=== PATIENT | female | born 1985 | race Caucasian/White ===

== ENCOUNTER → 2016-05-23 | Outpatient (CLI) | payer OTHER ==
[2016-05-23 18:17] LABS: ABSOLUTE EOSINOPHILS # (AUTO) 0.1 10^3/uL (0.0-0.6); ABSOLUTE LYMPHOCYTES (AUTO) 1.9 10^3/uL (0.5-4.7); ABSOLUTE MONOCYTES (AUTO) 0.9 10^3/uL (0.1-1.4); ABSOLUTE NEUT (AUTO) 8.9 10^3/uL (1.7-8.2); BASOPHILS % (AUTO) 0.3 % (0-2); EOSINOPHILS % (AUTO) 0.9 % (0-6); HEMATOCRIT 34.8 % (36.0-47.0); HEMOGLOBIN 11.8 g/dL (12.0-15.5); HGB HCT DIFFERENCE 0.6; LYMPHOCYTES % (AUTO) 16.3 % (13-45); MEAN CORPUSCULAR HEMOGLOBIN 30.9 pg (27.0-33.4); MEAN CORPUSCULAR VOLUME 91 fl (80-97); MONOCYTES % (AUTO) 7.7 % (3-13); RED BLOOD COUNT 3.84 10^6/uL (3.72-5.28); RED CELL DISTRIBUTION WIDTH 12.7 % (11.5-14.0); SEGMENTED NEUTROPHILS % (AUTO) 74.8 % (42-78); WHITE BLOOD COUNT 11.9 10^3/uL (4.0-10.5)
== END ==
LOC: OD 17:29
PROVIDERS: ATTEND Advanced Practice Midwife
DX: R53.81 Other malaise (principal)
CPT/HCPCS: 36415; 85025; 87177

== ENCOUNTER 2016-06-09 19:30 | Observation (INO) | payer OTHER ==
--- NOTE | 2016-06-09 20:00 | L&D Flow Sheet ---
LD Flowsheet Datetime Report Generated by CPN: 06/09/2016 20:00 Datetime: 06/09/2016 19:57 Uterine Activity Monitor Interventions for UA: [place] Adjusted (Amirah Vitrano, RN) Datetime: 06/09/2016 19:50 Vital Signs NBP Sys/Gabriela/Mean (mmHg): 113 (QS system process) : 77 (QS system process) : 92 (QS system process) Pulse: 101 (QS system process) Datetime: 06/09/2016 19:49 Frequency (min): Irregular (Amirah Vitrano, RN) Pain Pain Scale: 1 (Amirah Vitrano, RN) Pain Presence: Intermittent (Amirah Vitrano, RN) Pain Type: Cramping (Amirah Vitrano, RN) Pain Location: Abdomen (Amirah Vitrano, RN) Pain Relief Measures: Comfort Measures (Amirah Vitrano, RN) Pain Coping: Talking Through Contractions (Amirah Vitrano, RN) Vaginal Exam Membrane Status: Intact (Amirah Vitrano, RN) Vaginal Bleeding: None (Amirah Vitrano, RN) Maternal Assessment Level of Consciousness: Fully Conscious (Amirah Vitrano, RN) DTR's/Clonus: DTRs 2+; No Clonus (Amirah Vitrano, RN) Headache: Denies (Amirah Vitrano, RN) Breath Sounds, Left: Clear and Equal (Amirah Vitrano, RN) Breath Sounds, Right: Clear and Equal (Amirah Vitrano, RN) Nausea/Vomiting: Denies (Amirah Vitrano, RN) RUQ Epigastric Pain: Denies (Amirah Vitrano, RN) Datetime: 06/09/2016 19:46 Patient Care Patient Position/Activity: Left Tilt; Semi-Fowlers (Amirah Vitrano, RN) I/O Interventions: Clear Liquids Given (Amirah Vitrano, RN) Teaching Instructional Method: Verbal; Patient Instructed; Verbalized Understanding (Amirah Meenakshiano, RN) Plan of Care: Plan of Care Discussed (Amirah Vitrano, RN) Unit Routine: [place] to Room; Call [place]; Bed; Unit Personnel; Monitoring; Safety/Fall Risk Prevention; Bathroom Privileges (Amiarh Hebert RN)
[2016-06-09 20:15] LABS: APPEARANCE,URINE CLEAR; BILIRUBIN,URINE NEGATIVE (NEGATIVE); GLUCOSE, URINE NEGATIVE (NEGATIVE); KETONES,URINE TRACE mg/dL (NEGATIVE); LEUKOCYTE ESTERASE,URINE TRACE (NEGATIVE); NITRITE,URINE NEGATIVE (NEGATIVE); PROTEIN,URINE NEGATIVE (NEGATIVE); URINE SPECIFIC GRAVITY 1.003; UROBILINOGEN,URINE NEGATIVE mg/dL (<2.0)
[2016-06-09 20:41] LABS: URINE BARBITURATES SCREEN NEGATIVE; URINE METHADONE SCREEN NEGATIVE; URINE OPIATES LOW NEGATIVE; URINE PHENCYCLIDINE SCREEN NEGATIVE
--- NOTE | 2016-06-09 22:00 | L&D Flow Sheet ---
LD Flowsheet Datetime Report Generated by CPN: 06/09/2016 22:00 Datetime: 06/09/2016 21:45 Monitor Mode: External (Amirah Vitrano, RN) Frequency (min): 5-6 (Amirah Vitrano, RN) Quality: Mild (Amirah Vitrano, RN) Duration (sec): 60-70 (Amirah Vitrano, RN) Duration Criteria: Less than Two 120 Second Contractions (Amirah Vitrano, RN) Pattern: Normal: <= 5 Contractions in 10 Minutes (Amirah Vitrano, RN) Resting Tone (Palpate): Relaxed (Amirah Vitrano, RN) Monitor Mode: External US (Amirah Vitrano, RN) FHR Baseline Rate : 145 (Amirah Vitrano, RN) Variability: Moderate 6-25 bpm (Amirah Vitrano, RN) Accelerations: 15X15 (Amirah Vitrano, RN) Decelerations: None (Amirah Vitrano, RN) Patient Care Comments: Pt transported to radiology for ultrasound in stable condition via wheelchair with [employer] (Amirah Vitrano, RN) Datetime: 06/09/2016 21:30 Monitor Mode: External (Amirah Vitrano, RN) Frequency (min): 2-7 (Amirah Vitrano, RN) Quality: Mild (Amirah Vitrano, RN) Duration (sec): 50-90 (Amirah Vitrano, RN) Duration Criteria: Less than Two 120 Second Contractions (Amirah Vitrano, RN) Pattern: Normal: <= 5 Contractions in 10 Minutes (Amirah Vitrano, RN) Resting Tone (Palpate): Relaxed (Amirah Vitrano, RN) Monitor Mode: External US (Amirah Vitrano, RN) FHR Baseline Rate : 140 (Amirah Vitrano, RN) Variability: Moderate 6-25 bpm (Amirah Vitrano, RN) Accelerations: Prolonged (Amirah Vitrano, RN) Decelerations: None (Amirah Vitrano, RN) Datetime: 06/09/2016 21:20 NBP Sys/Gabriela/Mean (mmHg): 112 (QS system process) : 76 (QS system process) : 89 (QS system process) Pulse: 90 (QS system process) Respirations: 16 (Amirah Vitrano, RN) LaborFlag: Labor (QS system process) Datetime: 06/09/2016 21:04 Patient Care Comments: Reviewed POC with pt; pt denies needs at this time. Comfortably resting in bed. (Amirah Vitrano, RN) Datetime: 06/09/2016 21:00 Monitor Mode: External; Palpation (Amirah Vitrano, RN) Frequency (min): 2-6 (Amirah Vitrano, RN) Quality: Mild (Amirah Vitrano, RN) Duration (sec): 40-90 (Amirah Vitrano, RN) Duration Criteria: Less than Two 120 Second Contractions (Amirah Vitrano, RN) Pattern: Normal: <= 5 Contractions in 10 Minutes (Amirah Vitrano, RN) Resting Tone (Palpate): Relaxed (Amirah Vitrano, RN) Monitor Mode: External US (Amirah Vitrano, RN) FHR Baseline Rate : 130 (Amirah Vitrano, RN) Variability: Moderate 6-25 bpm (Amirah Vitrano, RN) Accelerations: 15X15 (Amirah Meenakshiano, RN) Decelerations: None (Amirah Meenakshiano, RN) Communication Comments: Call to Radiology; refrigeration technician states pt may transport for U/S in approx 30 min-1 hour d/t pt census. Reviewed with Dr. Chopra, no new orders, continue curren POC. (Amirah Meenakshiano, RN) Datetime: 06/09/2016 20:58 I/O Interventions: Up to BR (Amirah Meenakshiano, RN) Datetime: 06/09/2016 20:50 NBP Sys/Gabriela/Mean (mmHg): 116 (QS system process) : 72 (QS system process) : 88 (QS system process) Pulse: 84 (QS system process) Respirations: 16 (Amirah Anup, RN) LaborFlag: Labor (QS system process) Datetime: 06/09/2016 20:30 Monitor Mode: External; Palpation (Amirah Vitrano, RN) Frequency (min): Irregular (Amirah Vitrano, RN) Quality: Mild (Amirah Vitrano, RN) Duration (sec): 70-90 (Amirah Vitrano, RN) Duration Criteria: Less than Two 120 Second Contractions (Amirah Vitrano, RN) Pattern: Normal: <= 5 Contractions in 10 Minutes (Amirah Vitrano, RN) Resting Tone (Palpate): Relaxed (Amirah Vitrano, RN) Contraction Comments: With irritability (Amirah Vitrano, RN) Monitor Mode: External US (Amirah Vitrano, RN) FHR Baseline Rate : 130 (Amirah Vitrano, RN) Variability: Moderate 6-25 bpm (Amirah Vitrano, RN) Accelerations: 15X15 (Amirah Vitrano, RN) Decelerations: None (Amirah Vitrano, RN) Datetime: 06/09/2016 20:27 Patient Care Comments: Snack provided (Amirah Vitrano, RN) Datetime: 06/09/2016 20:19 Communication Comments: Reviewed urine results with ; no new orders, continue current POC (Amirah Meenakshiano, RN) Datetime: 06/09/2016 20:12 I/O Interventions: Up to BR (Amirah Meenakshiano, RN) Datetime: 06/09/2016 20:05 Communication Comments: Dr. Chopra on unit, reviewed strip. Report given to include EGA 33.4, , pt complaints, nursing assessment, VS, and pt history. Orders received for STAT cervical length. (Amirah Hebert RN)
[2016-06-09] MEDS ORDERED: ZOLPIDEM TARTRATE 5 MG TABLET PO PRN (23:03)
[2016-06-09] MEDS ORDERED: BETAMET ACET/BETAMET NA INJ 6 MG/1 ML IM PRN (23:05)
[2016-06-09] MEDS ORDERED: BETAMET ACET/BETAMET NA INJ 6 MG/1 ML ONE (23:16)
[2016-06-09 23:29] LABS: ABSOLUTE EOSINOPHILS # (AUTO) 0.1 10^3/uL (0.0-0.6); ABSOLUTE LYMPHOCYTES (AUTO) 1.9 10^3/uL (0.5-4.7); ABSOLUTE MONOCYTES (AUTO) 0.8 10^3/uL (0.1-1.4); BASOPHILS % (AUTO) 0.1 % (0-2); EOSINOPHILS % (AUTO) 0.8 % (0-6); HEMATOCRIT 33.6 % (36.0-47.0); HEMOGLOBIN 11.7 g/dL (12.0-15.5); HGB HCT DIFFERENCE 1.5; LYMPHOCYTES % (AUTO) 14.7 % (13-45); MEAN CORPUSCULAR HEMOGLOBIN 31.3 pg (27.0-33.4); MEAN CORPUSCULAR VOLUME 89 fl (80-97); RED BLOOD COUNT 3.76 10^6/uL (3.72-5.28); RED CELL DISTRIBUTION WIDTH 12.8 % (11.5-14.0); SEGMENTED NEUTROPHILS % (AUTO) 78.4 % (42-78); WHITE BLOOD COUNT 12.7 10^3/uL (4.0-10.5)
[2016-06-10] MEDS ORDERED: ZOLPIDEM TARTRATE 5 MG TABLET ONE (01:19)
--- NOTE | 2016-06-10 08:00 | L&D Flow Sheet ---
LD Flowsheet Datetime Report Generated by CPN: 06/10/2016 08:00 Datetime: 06/10/2016 07:29 NBP Sys/Gabriela/Mean (mmHg): 115 (QS system process) : 74 (QS system process) : 87 (QS system process) Pulse: 109 (QS system process) Pain Scale: 0 (DANIAL Buitrago) Pain Presence: None/Denies (DANIAL Buitrago) Pain Type: N/A (DANIAL Buitrago) Pain Assessment Comments: denies pain on discharge (DANIAL Buitrago) Instructional Method: Demo; Verbal; Written; Patient Instructed; Verbalized Understanding (DANIAL Buitrago) Unit Routine: Medications (DANIAL Buitrago) PTL/PROM: PTL Stimulating Activities; Hydration; Expected Outcomes (DANIAL Buitrago) Related: Nutrition; Hydration; Activity and Rest (DANIAL Buitrago) Teaching Comments: Reviewed discharge plans, educated on importance of hydration and nutritional requirements to help prevent contractions. Instructed to remain on pelvic rest and PTL stimulating activities. educated to return tonight to labor and delivery at 2100 for second dose betamethasone. Verbalized understanding of all instructions (Brenda Camp, RNC) LaborFlag: Labor (QS system process) Datetime: 06/10/2016 07:12 Patient Care Comments: EFM off for discharge to home see discharge summary (Brenda Camp, RNC) Communication: RN at Bedside; Report Given to [facility] RN (Elina Woods RN) Datetime: 06/10/2016 07:09 Dilatation (cm): 2.0 (Brenda Camp, RNC) Effacement (%): 50 (Brenda Camp, RNC) Station: -2 (Brenda Camp, RNC) Exam by: Ran Chopra (Brenda Camp, RNC) Cervix, Position: Posterior (Brenda Camp, RNC) Datetime: 06/10/2016 07:04 Provider Reviewed Strip: Yes (Brenda Jacobs, RNC) Communication: RN at Bedside; Provider at Bedside (Brenda Jacobs, RNC) Communication Comments: Dr [place] and Eros Woods Rn at bedside for assessment. Verbalizes absent uterine contractions or cramping. Denies vaginal leaking or bleeding. (Brenda Camp, RNC) Datetime: 06/10/2016 07:00 Monitor Mode: External; Palpation (Brenda Jacobs, RNC) Monitor Mode: External; Palpation (Elina Woods, RN) Frequency (min): irregular (Brenda Camp, RNC) Frequency (min): x1 (Elina Woods, RN) Quality: Mild (Brenda Camp, RNC) Quality: Mild (Elinajeovany Woods, RN) Duration (sec): 30-45 (Brenda Camp, RNC) Duration (sec): 130 (Elina Ledgerchelo, RN) Pattern: Normal: <= 5 Contractions in 10 Minutes (Elina Woods, RN) Resting Tone (Palpate): Relaxed (Brenda Camp, RNC) Resting Tone (Palpate): Relaxed (Elina Woods, RN) Monitor Mode: External US; Auscultation (Brenda Jacobs, RNC) Monitor Mode: External US (Elina Woods RN) FHR Baseline Rate : 110 (Brenda Jacobs RNC) FHR Baseline Rate : 120 (Elina Ledgerwood, RN) FHR Baseline Changes: No Baseline Change (Elina Ledgerwood, RN) Variability: Moderate 6-25 bpm (Brenda Camp, RNC) Variability: Moderate 6-25 bpm (Elina Ledgerwood, RN) Accelerations: 15X15 (Brenda Camp, RNC) Accelerations: None (Elina Ledgerwood, RN) Decelerations: None (Brenda Camp, RNC) Decelerations: None (Elina Ledgerwood, RN) Datetime: 06/10/2016 06:52 NBP Sys/Gabriela/Mean (mmHg): 110 (QS system process) : 68 (QS system process) : 83 (QS system process) Pulse: 88 (QS system process) LaborFlag: Labor (QS system process) Datetime: 06/10/2016 06:35 I/O Interventions: Clear Liquids Given (Elina Ledgerwood, RN) Datetime: 06/10/2016 06:30 Monitor Mode: External; Palpation (Elina Ledgerwood, RN) Frequency (min): x1 (Elina Ledgerwood, RN) Quality: Mild (Elina Ledgerwood, RN) Duration (sec): 70 (Elina Ledgerwood, RN) Pattern: Normal: <= 5 Contractions in 10 Minutes (Elina Ledgerwood, RN) Resting Tone (Palpate): Relaxed (Elina Ledgerwood, RN) Monitor Mode: External US (Elina Ledgerwood, RN) FHR Baseline Rate : 125 (Elina Ledgerwood, RN) FHR Baseline Changes: No Baseline Change (Elina Ledgerwood, RN) Variability: Moderate 6-25 bpm (Elina Ledgerwood, RN) Accelerations: 15X15 (Elina Ledgerwood, RN) Decelerations: None (Elina Ledgerwood, RN) Datetime: 06/10/2016 06:22 Communication: RN at Bedside (Elina Ledgerwood, RN) Communication Comments: pt moved in the bed (Elina Ledgerwood, RN) Datetime: 06/10/2016 06:00 Monitor Mode: External; Palpation (Elina Ledgerwood, RN) Frequency (min): 6.5-7.5 (Elina Ledgerwood, RN) Quality: Mild (Elina Ledgerwood, RN) Duration (sec): 60 (Elina Ledgerwood, RN) Duration Criteria: Less than Two 120 Second Contractions (Elina Ledgerwood, RN) Pattern: Normal: <= 5 Contractions in 10 Minutes (Elina Ledgerwood, RN) Resting Tone (Palpate): Relaxed (Elina Ledgerwood, RN) Monitor Mode: External US (Elina Ledgerwood, RN) FHR Baseline Rate : 125 (Elina Ledgerwood, RN) FHR Baseline Changes: No Baseline Change (Eilna Ledgerwood, RN) Variability: Moderate 6-25 bpm (Elina Ledgerwood, RN) Accelerations: 15X15 (Elina Ledgerwood, RN) Decelerations: None (Elina Ledgerwood, RN) Datetime: 06/10/2016 05:30 Monitor Mode: External; Palpation (Elina Ledgerwood, RN) Frequency (min): x1 (Elina Ledgerwood, RN) Quality: Mild (Elina Ledgerwood, RN) Duration (sec): 80 (Elina Ledgerwood, RN) Duration Criteria: Less than Two 120 Second Contractions (Elina Ledgerwood, RN) Pattern: Normal: <= 5 Contractions in 10 Minutes (Elina Ledgerwood, RN) Resting Tone (Palpate): Relaxed (Elina Ledgerwood, RN) Monitor Mode: External US (Elina Ledgerwood, RN) FHR Baseline Rate : 125 (Elina Ledgerwood, RN) FHR Baseline Changes: No Baseline Change (Elina Ledgerwood, RN) Variability: Moderate 6-25 bpm (Elina Ledgerwood, RN) Accelerations: 15X15 (Elina Ledgerwood, RN) Decelerations: None (Elina Ledgerwood, RN) Datetime: 06/10/2016 05:00 Monitor Mode: External; Palpation (Elina Ledgerwood, RN) Frequency (min): irreg (Elina Ledgerwood, RN) Quality: Mild (Elina Ledgerwood, RN) Duration (sec): 70-80 (Elina Ledgerwood, RN) Duration Criteria: Less than Two 120 Second Contractions (Elina Ledgerwood, RN) Pattern: Normal: <= 5 Contractions in 10 Minutes (Elina Ledgerwood, RN) Resting Tone (Palpate): Relaxed (Elina Ledgerwood, RN) Monitor Mode: External US (Elina Ledgerwood, RN) FHR Baseline Rate : 125 (Elina Ledgerwood, RN) FHR Baseline Changes: No Baseline Change (Elina Ledgerwood, RN) Variability: Moderate 6-25 bpm (Elina Ledgerwood, RN) Accelerations: None (Elina Ledgerwood, RN) Decelerations: None (Elina Ledgerwood, RN) Datetime: 06/10/2016 04:30 Monitor Mode: External; Palpation (Elina Ledgerwood, RN) Frequency (min): x1 (Elina Ledgerwood, RN) Quality: Mild (Elina Ledgerwood, RN) Duration (sec): 80 (Elina Ledgerwood, RN) Duration Criteria: Less than Two 120 Second Contractions (Elina Ledgerwood, RN) Pattern: Normal: <= 5 Contractions in 10 Minutes (Elina Ledgerwood, RN) Resting Tone (Palpate): Relaxed (Elina Ledgerwood, RN) Monitor Mode: External US (Elina Ledgerwood, RN) FHR Baseline Rate : 120 (Elina Ledgerwood, RN) FHR Baseline Changes: No Baseline Change (Elina Ledgerwood, RN) Variability: Moderate 6-25 bpm (Elina Ledgerwood, RN) Accelerations: None (Elina Ledgerwood, RN) Decelerations: None (Elina Ledgerwood, RN) Datetime: 06/10/2016 04:00 Monitor Mode: External; Palpation (Elina Ledgerwood, RN) Frequency (min): 8-14 (Elina Ledgerwood, RN) Quality: Mild (Elina Ledgerwood, RN) Duration (sec): 60-80 (Elina Ledgerwood, RN) Duration Criteria: Less than Two 120 Second Contractions (Elina Ledgerwood, RN) Pattern: Normal: <= 5 Contractions in 10 Minutes (Elina Ledgerwood, RN) Resting Tone (Palpate): Relaxed (Elina Ledgerwood, RN) Monitor Mode: External US (Elina Ledgerwood, RN) FHR Baseline Rate : 125 (Elina Ledgerwood, RN) FHR Baseline Changes: No Baseline Change (Elina Ledgerwood, RN) Variability: Moderate 6-25 bpm (Elina Ledgerwood, RN) Accelerations: 15X15 (Elina Ledgerwood, RN) Decelerations: None (Elina Ledgerwood, RN) Datetime: 06/10/2016 03:30 Monitor Mode: External; Palpation (Elina Ledgerwood, RN) Frequency (min): 2.5-7.5 (Elina Ledgerwood, RN) Quality: Mild (Elina Ledgerwood, RN) Duration (sec): 60-70 (Elina Ledgerwood, RN) Duration Criteria: Less than Two 120 Second Contractions (Elina Ledgerwood, RN) Pattern: Normal: <= 5 Contractions in 10 Minutes (Elina Ledgerwood, RN) Resting Tone (Palpate): Relaxed (Elina Ledgerwood, RN) Monitor Mode: External US (Elina Ledgerwood, RN) FHR Baseline Rate : 125 (Elina Ledgerwood, RN) FHR Baseline Changes: No Baseline Change (Elina Ledgerwood, RN) Variability: Moderate 6-25 bpm (Elina Ledgerwood, RN) Accelerations: 15X15 (Elina Ledgerwood, RN) Decelerations: None (Elina Ledgerwood, RN) Datetime: 06/10/2016 03:00 Monitor Mode: External; Palpation (Elina Ledgerwood, RN) Frequency (min): 7 (Elina Ledgerwood, RN) Quality: Mild (Elina Ledgerwood, RN) Duration (sec): 60-70 (Elina Ledgerwood, RN) Duration Criteria: Less than Two 120 Second Contractions (Elina Ledgerwood, RN) Pattern: Normal: <= 5 Contractions in 10 Minutes (Elina Ledgerwood, RN) Resting Tone (Palpate): Relaxed (Elina Ledgerwood, RN) Monitor Mode: External US (Elina Ledgerwood, RN) FHR Baseline Rate : 130 (Elina Ledgerwood, RN) FHR Baseline Changes: No Baseline Change (Elina Ledgerwood, RN) Variability: Moderate 6-25 bpm (Elina Ledgerwood, RN) Accelerations: 15X15 (Elina Ledgerwood, RN) Decelerations: None (Elina Ledgerwood, RN) Datetime: 06/10/2016 02:30 Monitor Mode: External; Palpation (Elina Ledgerwood, RN) Frequency (min): irreg (Elina Ledgerwood, RN) Quality: Mild (Elina Ledgerwood, RN) Duration (sec): 60-70 (Elina Ledgerwood, RN) Duration Criteria: Less than Two 120 Second Contractions (Elina Ledgerwood, RN) Pattern: Normal: <= 5 Contractions in 10 Minutes (Elina Ledgerwood, RN) Resting Tone (Palpate): Relaxed (Elina Ledgerwood, RN) Monitor Mode: External US (Elina Ledgerwood, RN) FHR Baseline Rate : 135 (Elina Ledgerwood, RN) FHR Baseline Changes: No Baseline Change (Elina Ledgerwood, RN) Variability: Moderate 6-25 bpm (Elina Ledgerwood, RN) Accelerations: 15X15 (Elina Ledgerwood, RN) Decelerations: None (Elina Ledgerwood, RN) Datetime: 06/10/2016 02:00 Monitor Mode: External; Palpation (Elina Ledgerwood, RN) Frequency (min): none (Elina Ledgerwood, RN) Resting Tone (Palpate): Relaxed (Elina Ledgerwood, RN) Contraction Comments: pt states that she feels better and does not feel any contractions. (Elina Ledgerwood, RN) Monitor Mode: External US (Elina Ledgerwood, RN) FHR Baseline Rate : 130 (Elina Ledgerwood, RN) FHR Baseline Changes: No Baseline Change (Elina Ledgerwood, RN) Variability: Moderate 6-25 bpm (Elina Ledgerwood, RN) Accelerations: 15X15 (Elina Ledgerwood, RN) Decelerations: None (Elina Ledgerwood, RN) Datetime: 06/10/2016 01:30 Monitor Mode: External; Palpation (Elina Ledgerwood, RN) Frequency (min): 7-8 (Elina Ledgerwood, RN) Quality: Mild (Elina Ledgerwood, RN) Duration (sec): 60-90 (Elina Ledgerwood, RN) Duration Criteria: Less than Two 120 Second Contractions (Elina Ledgerwood, RN) Pattern: Normal: <= 5 Contractions in 10 Minutes (Elina Ledgerwood, RN) Resting Tone (Palpate): Relaxed (Elina Ledgerwood, RN) Monitor Mode: External US (Elina Ledgerwood, RN) FHR Baseline Rate : 130 (Elina Ledgerwood, RN) FHR Baseline Changes: No Baseline Change (Elina Ledgerwood, RN) Variability: Moderate 6-25 bpm (Elina Ledgerwood, RN) Accelerations: 15X15 (Elina Ledgerwood, RN) Decelerations: None (Elina Ledgerwood, RN) Datetime: 06/10/2016 01:20 Analgesics/Sedatives: Ambien (mg) @ 5 (Elina Ledgerwood, RN) Datetime: 06/10/2016 01:00 Monitor Mode: External; Palpation (Elina Ledgerwood, RN) Frequency (min): x1 (Elian Ledgerwood, RN) Quality: Mild (Elina Ledgerwood, RN) Duration (sec): 130 (Elina Ledgerwood, RN) Pattern: Normal: <= 5 Contractions in 10 Minutes (Elina Ledgerwood, RN) Resting Tone (Palpate): Relaxed (Elina Ledgerwood, RN) Monitor Mode: External US (Elina Ledgerwood, RN) FHR Baseline Rate : 135 (Elina Ledgerwood, RN) FHR Baseline Changes: No Baseline Change (Elina Ledgerwood, RN) Variability: Moderate 6-25 bpm (Elina Ledgerwood, RN) Accelerations: 15X15 (Elina Ledgerwood, RN) Decelerations: None (Elina Ledgerwood, RN) Datetime: 06/10/2016 00:30 Monitor Mode: External; Palpation (Elina Ledgerwood, RN) Frequency (min): x1 (Elina Ledgerwood, RN) Quality: Mild (Elina Ledgerwood, RN) Duration (sec): 160 (Elina Ledgerwood, RN) Pattern: Normal: <= 5 Contractions in 10 Minutes (Elina Ledgerwood, RN) Resting Tone (Palpate): Relaxed (Elina Ledgerwood, RN) Monitor Mode: External US (Elina Ledgerwood, RN) FHR Baseline Rate : 135 (Elina Ledgerwood, RN) FHR Baseline Changes: No Baseline Change (Elina Ledgerwood, RN) Variability: Moderate 6-25 bpm (Elina Ledgerwood, RN) Accelerations: 15X15 (Elina Ledgerwood, RN) Decelerations: None (Elina Ledgerwood, RN) Datetime: 06/10/2016 00:24 NBP Sys/Gabriela/Mean (mmHg): 106 (QS system process) : 62 (QS system process) : 80 (QS system process) Pulse: 78 (QS system process) Respirations: 14 (Elina Ledgerwood, RN) LaborFlag: Labor (QS system process) Datetime: 06/10/2016 00:19 Contraction Comments: monitors on (Elina Ledgerwood, RN) Datetime: 06/09/2016 23:31 Communication: RN at Bedside (Elina Ledgerwood, RN) Communication Comments: report received from B Vitrano RN (Elina Ledgerwood, RN) Datetime: 06/09/2016 23:30 Communication Comments: Report to O. Ledgerwood, RN; care relinquished (Amirah Vitrano, RN) Datetime: 06/09/2016 23:28 Monitor Mode: External; Palpation (Elina Ledgerwood, RN) Frequency (min): x1 (Elina Ledgerwood, RN) Quality: Mild (Elina Ledgerwood, RN) Duration (sec): 90 (Elina Ledgerwood, RN) Pattern: Normal: <= 5 Contractions in 10 Minutes (Elina Ledgerwood, RN) Resting Tone (Palpate): Relaxed (Elina Ledgerwood, RN) Monitor Mode: External US (Elina Ledgerwood, RN) FHR Baseline Rate : 130 (Elina Ledgerwood, RN) FHR Baseline Changes: No Baseline Change (Elina Ledgerwood, RN) Variability: Moderate 6-25 bpm (Elina Ledgerwood, RN) Accelerations: 15X15 (Elina Ledgerwood, RN) Decelerations: None (Elina Ledgerwood, RN) Patient Care Comments: pt off the monitor to take a shower. (Elina Ledgerwood, RN) Datetime: 06/09/2016 23:20 Patient Care Comments: Consents reviewed and signed (Amirah Vitrano, RN) Datetime: 06/09/2016 23:18 Medication Comments: Betamethasone 12 mg IM L gluteal (Amirah Vitrano, RN) Datetime: 06/09/2016 23:15 Patient Care Comments: Labs drawn (Amirah Vitrano, RN) Datetime: 06/09/2016 23:11 Patient Care Comments: 18 G IV in L forearm, site WNL, saline locked (Amirah Vitrano, RN) Datetime: 06/09/2016 23:06 Communication Comments: May do VS q [address] Chopra (Amirah Vitrano, RN) Datetime: 06/09/2016 23:00 Monitor Mode: External (Amirah Vitrano, RN) Frequency (min): 5-6 (Amirah Vitrano, RN) Quality: Mild (Amirah Vitrano, RN) Duration (sec): 50-80 (Amirah Vitrano, RN) Resting Tone (Palpate): Relaxed (Amirah Vitrano, RN) Monitor Mode: External US (Amirah Vitrano, RN) FHR Baseline Rate : 130 (Amirah Vitrano, RN) Variability: Moderate 6-25 bpm (Amirah Vitrano, RN) Accelerations: 15X15 (Amirah Vitrano, RN) Decelerations: None (Amirah Vitrano, RN) Datetime: 06/09/2016 22:45 Communication Comments: Dr. Chopra at bedside reviewing POC and answering pt questions. (Amirah Vitrano, RN) Datetime: 06/09/2016 22:43 Communication Comments: Orders received to admit pt to monitor for PTL. Orders for Betamethasone 12 mg IM x1 now, repeat dose in 24 hours. Saline lock IV only. Regular diet. Ambien 5 mg PO PRN for sleep. (Amirah Vitrano, RN) Datetime: 06/09/2016 22:41 Communication Comments: Dr. Chopra at bedside, reviewed strip. Reviewed ultrasound results. (Amirah Vitrano, RN) Datetime: 06/09/2016 22:40 Dilatation (cm): 2.0 (Amirah Vitrano, RN) Exam by: Dr. Chopra (Amirah Vitrano, RN) Datetime: 06/09/2016 22:35 I/O Interventions: Up to BR (Amirah Vitrano, RN) Datetime: 06/09/2016 22:30 Monitor Mode: External; Palpation (Amirah Vitrano, RN) Frequency (min): 3-6 (Amirah Vitrano, RN) Quality: Mild (Amirah Vitrano, RN) Duration (sec): 40-70 (Amirah Vitrano, RN) Duration Criteria: Less than Two 120 Second Contractions (Amirah Vitrano, RN) Pattern: Normal: <= 5 Contractions in 10 Minutes (Amirah Vitrano, RN) Resting Tone (Palpate): Relaxed (Amirah Vitrano, RN) Monitor Mode: External US (Amirah Vitrano, RN) FHR Baseline Rate : 140 (Amirah Vitrano, RN) Variability: Moderate 6-25 bpm (Amirah Vitrano, RN) Accelerations: 10X10 (Amirah Vitrano, RN) Decelerations: None (Amirah Vitrano, RN) Datetime: 06/09/2016 22:08 NBP Sys/Gabriela/Mean (mmHg): 114 (QS system process) : 67 (QS system process) : 84 (QS system process) Pulse: 93 (QS system process) Respirations: 16 (Amirah Vitrano, RN) LaborFlag: Labor (QS system process) Datetime: 06/09/2016 22:07 Pain Scale: 1 (Amirah Vitrano, RN) Pain Presence: Intermittent (Amirah Vitrano, RN) Pain Type: Cramping (Amirah Vitrano, RN) Pain Location: Abdomen (Amirah Vitrano, RN) Patient Position/Activity: Left Tilt; Semi-Fowlers (Amirah Vitrano, RN) LaborFlag: Labor (QS system process) Datetime: 06/09/2016 22:06 Patient Care Comments: Pt stable, denies needs (Amirah Hebert RN) Patient Care Comments: Pt returned from Radiology in stable condition via wheelchair with [employer] (Amirah Hebert RN)
--- NOTE | 2016-06-10 10:45 | L&D General Admission ---
General Admit Datetime Report Generated by CPN: 06/10/2016 10:45 INFORMATION Patient Age: 30 (06/09/2016 19:30:QS system process) EDC: 07/24/2016 00:00 (06/09/2016 19:34:Amirah Hebert RN) : 2 (06/09/2016 19:34:Amirah Hebert RN) Para: 1 (06/09/2016 19:34:Amirah Hebert RN) Term: 1 (06/09/2016 19:34:Amirah Hebert RN) : 0 (06/09/2016 19:34:Amirah Hebert RN) Spontaneous Abortions: 0 (06/09/2016 19:34:Amirah Hebert RN) Induced Abortions: 0 (06/09/2016 19:34:Amirah Hebert RN) Livin (06/09/2016 19:34:Amirah Hebert RN) Cesareans: 0 (06/09/2016 19:34:Amirah Hebert RN) VBACs: 0 (06/09/2016 19:34:Amirah Hebert RN) Ectopic: 0 (06/09/2016 19:34:Amirah Hebert RN) Multiple Births: 0 (06/09/2016 19:34:Amirah Hebert RN) Baby, Number in Womb: 1 (06/09/2016 19:34:Amirah Hebert RN) CARE Primary Fugitive Detective: [facility] (06/09/2016 19:34:Amirah Hebert RN) Month of 1st Visit: 12/2015 (06/09/2016 19:34:Amirah Hebert RN) Adequate Care: Yes (06/09/2016 19:34:Amirah Hebert RN) Prepregnancy Weight (lb): 129 (06/09/2016 19:34:Amirah Hebert RN) Prepregnancy Weight (kg): 58.6 (06/09/2016 19:34:QS system process) Height (in): 67 (06/09/2016 19:41:QS system process) ALLERGIES Medication Allergy: No (06/09/2016 19:34:Amirah Hebert RN) Medication Allergies: No Known Allergies (06/09/2016) (06/09/2016 19:41:QS system process) Medication Allergies: No Known Allergies (05/24/2013) (06/09/2016 19:30:QS system process) Latex Allergy: No Latex Allergies (06/09/2016 19:34:Amirah Hebert RN) Food Allergies: N/A (06/09/2016 19:34:Amirah Hebert RN) Environmental Allergies: N/A (06/09/2016 19:34:Amirah Hebert RN) COMMUNICATION Primary Language: Niuean (06/09/2016 19:34:Amirah Hebert RN) Medical Tx Preferred Language: Niuean (06/09/2016 19:34:Amirah Hebert RN) Communication Barrier(s): None (06/09/2016 19:34:Amirah Hebert RN) DEMOGRAPHICS Address: [address] [place] [id number] (06/09/2016 19:30:QS system process) Zipcode: [address] (06/09/2016 19:30:QS system process) Home (06/09/2016 19:30:QS system process) SSN: [id number] (06/09/2016 19:30:QS system process) Next of Kin Name: ADOLFO MILLS (06/09/2016 19:30:QS system process) Next of Kin (06/09/2016 19:30:QS system process) Next of Kin Relationship: MO (06/09/2016 19:30:QS system process) Date of : 1985 (06/09/2016 19:30:QS system process) Marital Status: (06/09/2016 19:30:QS system process) Sex: Female (06/09/2016 19:30:QS system process) Race: (06/09/2016 19:30:QS system process) Ethnicity: Non- or (06/09/2016 19:30:QS system process) Mandaen: Worship (06/09/2016 19:30:QS system process) DRUG AND ALCOHOL USE Alcohol: No (06/09/2016 19:34:Amirah Hebert RN) Cigarettes: Never Smoker. [id number] (06/09/2016 19:34:Amirah Hebert RN) Marijuana: No (06/09/2016 19:34:Amirah Hebert RN) Cocaine: No (06/09/2016 19:34:Amirah Hebert RN) Other Illicit Drugs: No (06/09/2016 19:34:Amirah Hebert RN) VACCINE HISTORY Influenza Vaccine: Yes (06/09/2016 19:34:Amirah Hebert RN) Pneumococcal Vaccine: No (06/09/2016 19:34:Amirah Hebert RN) Tetanus Vaccine: Yes (06/09/2016 19:34:Amirah Hebert RN) Tdap Vaccine: Yes (06/09/2016 19:34:Amirah Hebert RN) Hepatitis B Vaccine: Yes (06/09/2016 19:34:Amirah Hebert RN) Rock Splitter: [facility] (06/09/2016 19:34:Amirah Hebert RN) Feeding Preference: Breast (06/09/2016 19:34:Amirah Hebert RN) Benefit of Breast Feed Discussed: Yes (06/09/2016 19:34:Amirah Hebert RN) Circumcision: Yes (06/09/2016 19:34:Amirah Hebert RN) Classes Attended: No (06/09/2016 19:34:Amirah Hebert RN) Tubal Ligation: No (06/09/2016 19:34:Amirah eHbert RN) Tubal Authorization Signed: N/A (06/09/2016 19:34:Amirah Hebert RN) Consent: N/A (06/09/2016 19:34:Amirah Hebert RN) Consent Signed: N/A (06/09/2016 19:34:Amirah Hebert RN) Pain Management Plans: Natural (06/09/2016 19:34:Amirah Hebert RN) Plans for Labor and Delivery: None (06/09/2016 19:34:Amirah Hebert RN) Support Person: Tye (06/09/2016 19:34:Amirah Hebert RN) Support Person Relationship: (06/09/2016 19:34:Amirah Hebert RN) Cultural/Spritual Practice: No (06/09/2016 19:34:Amirah Hebert RN) Spir/Cult Dietary Needs: No (06/09/2016 19:34:Amirah Hebert RN) LIVING SITUATION/DISCHARGE PLAN Living Arrangements: House (06/09/2016 19:34:Amirah Hebert RN) Adequate Access to:: Electric; Heat; Refrigeration; Plumbing/Running water; Phone; Transportation (06/09/2016 19:34:Amirah Hebert RN) WIC Program: No (06/09/2016 19:34:Amirah Hebert RN) Discharge Tool And Die Engineer Person: (06/09/2016 19:34:Amirah Hebert RN) Person to Help after Discharge: (06/09/2016 19:34:Amirah Hebert RN) Currently Using Commun Resources: No (06/09/2016 19:34:Amirah Hebert RN) Outside Agency/House Calls Nurse Practitioner: No (06/09/2016 19:34:Amirah Hebert RN) Car Seat for Discharge: Yes (06/09/2016 19:34:Amirah Hebert RN) Adoption Requested: No (06/09/2016 19:34:Amirah Hebert RN) Pt Contact w/infant Post : N/A (06/09/2016 19:34:Amirah Hebert RN) LABS Blood Type: A Positive (06/09/2016 19:34:Amirah Hebert RN) Antibody Screen: Negative (06/09/2016 19:34:Amirah Hebert RN) Rho(G) this : Not Applicable (06/09/2016 19:34:Amirah Hebert RN) Hemoglobin: 11.7 L (06/09/2016 23:16:QS system process) Hematocrit: 33.6 L (06/09/2016 23:16:QS system process) MCV: 89 (06/09/2016 23:16:QS system process) RPR/VDRL: Nonreactive (06/09/2016 19:34:Amirah Hebert RN) HIV Exposure Test: Negative (06/09/2016 19:34:Amirah Hebert RN) Hepatitis B: Negative (06/09/2016 19:34:Amirah Hebert RN) Rubella: Immune (06/09/2016 19:34:Amirah Hebert RN) OB/PREVIOUS HISTORY Previous Procedures: Ultrasound; NST (06/09/2016 19:34:Amirah Hebert RN) Current Procedures: Ultrasound (06/09/2016 19:34:Amirah Hebert RN) History of Previous : No (06/09/2016 19:34:Amirah Hebert RN) History of Gestational Diabetes: No (06/09/2016 19:34:Amirah Hebert RN) History of PIH: No (06/09/2016 19:34:Amirah Hebert RN) History of Incompetent Cervix: No (06/09/2016 19:34:Amirah Hebert RN) History of Placenta Previa/Abrup: No (06/09/2016 19:34:Amirah Hebert RN) History of Macrosomia: No (06/09/2016 19:34:Amirah Hebert RN) History of IUGR: No (06/09/2016 19:34:Amirah Hebert RN) History of Hemorrhage: No (06/09/2016 19:34:Amirah Hebert RN) History of Loss/Stillborn: No (06/09/2016 19:34:Amirah Hebert RN) History of : No (06/09/2016 19:34:Amirah Hebert RN) History of D (Rh) Sensitization: No (06/09/2016 19:34:Amirah Hebert RN) History Recurrent Loss/Stillborn: No (06/09/2016 19:34:Amirah Hebert RN) History Depression/PP Depression: No (06/09/2016 19:34:Amirah Hebert RN) History of Uterine Anomaly/DIVYA: No (06/09/2016 19:34:Amirah Hebert RN) History of Infertility: No (06/09/2016 19:34:Amirah Hebert RN) History of ART Treatment: No (06/09/2016 19:34:Amirah Hebert RN) History of DIVYA: No (06/09/2016 19:34:Amirah Hebert RN) Comments Obstetrical History: G1: 2014 baby girl, 41.1 weeks, 7 lb 0 oz; PTL at 29 weeks G2: Current; /-2 at 31 weeks (06/09/2016 19:34:Amirah Hebert RN) MEDICAL HISTORY Med Hx Diabetes: No (06/09/2016 19:34:Amirah Hebert RN) Med Hx Hypertension: No (06/09/2016 19:34:Amirah Hebert RN) Med Hx Heart Disease: No (06/09/2016 19:34:Amirah Hebert RN) Med Hx Autoimmune Disorder: No (06/09/2016 19:34:Amirah Hebert RN) Med Hx Kidney Disease/UTI: Yes (06/09/2016 19:34:Amirah Hebert RN) Med Hx Neurologic/Epilepsy: No (06/09/2016 19:34:Amirah Hebert RN) Med Hx Psychiatric Disorders: No (06/09/2016 19:34:Amirah Hebert RN) Med Hx Hepatitis/Liver Disease: No (06/09/2016 19:34:Amirah Hebert RN) Med Hx Varicosities/Phlebitis: No (06/09/2016 19:34:Amirah Hebert RN) Med Hx Thyroid Dysfunction: No (06/09/2016 19:34:Amirah Hebert RN) Med Hx Trauma/Violence: No (06/09/2016 19:34:Amirah Hebert RN) Med Hx Blood Transfusion: No (06/09/2016 19:34:Amirah Hebert RN) Med Hx Pulmonary (Asthma,TB): No (06/09/2016 19:34:Amirah Hebert RN) Med Hx Breast: No (06/09/2016 19:34:Amirah Hebert RN) Med Hx MANAGER [employer] Surgery: No (06/09/2016 19:34:Amirah Hebert RN) Med Hx Hospitalization/Surgery: No (06/09/2016 19:34:Amirah Hebert RN) Med Hx Anesthetic Complications: No (06/09/2016 19:34:Amirah Hebert RN) Med Hx Abnormal Pap Smear: No (06/09/2016 19:34:Amirah Hebert RN) Other Medical Diseases: No (06/09/2016 19:34:Amirah Hebert RN) Med Hx Significant Family Hx: No (06/09/2016 19:34:Amirah Hebert RN) Details of Med/Surg Hx: UTI: Frequent UTIs, Macrobid prophylactically after intercourse (06/09/2016 19:34:Amirah Hebert RN) INFECTIOUS HISTORY Inf Hx Gonorrhea: No (06/09/2016 19:34:Amirah Hebert RN) Inf Hx Chlamydia: No (06/09/2016 19:34:Amirah Hebert RN) Inf Hx Syphilis: No (06/09/2016 19:34:Amirah Hebert RN) Inf Hx HIV/AIDS: No (06/09/2016 19:34:Amirah Hebert RN) Inf Hx Human Papilloma Virus: No (06/09/2016 19:34:Amirah Hebert RN) Inf Hx Pt/Partner Genital Herpes: No (06/09/2016 19:34:Amirah Hebert RN) Inf Hx Tuberculosis/Exposure: No (06/09/2016 19:34:Amirah Hebert RN) Inf Hx Hepatitis B,C: No (06/09/2016 19:34:Amirah Hebert RN) Inf Hx Rash or Viral Illness: No (06/09/2016 19:34:Amirah Hebert RN) GENETIC HISTORY Gen Hx Age >=35 at COLBY: No (06/09/2016 19:34:Amirah Hebert RN) Gen Hx Thalassemia: No (06/09/2016 19:34:Amirah Hebert RN) Gen Hx Congenital Heart Defect: No (06/09/2016 19:34:Amirah Hebert RN) Gen Hx Neural Tube Defect: No (06/09/2016 19:34:Amirah Hebert RN) Gen Hx Down's Syndrome: No (06/09/2016 19:34:Amirah Hebert RN) Gen Hx Virgil-Sachs: No (06/09/2016 19:34:Amirah Hebert RN) Gen Hx Mercy: No (06/09/2016 19:34:Amirah Hebert RN) Gen Hx Familial Dysautonomia: No (06/09/2016 19:34:Amirah Hebert RN) Gen Hx Sickle Cell Disease/Trait: No (06/09/2016 19:34:Amirah Hebert RN) Gen Hx Hemophilia/Blood Disorder: No (06/09/2016 19:34:Amirah Hebert RN) Gen Hx Muscular Dystrophy: No (06/09/2016 19:34:Amirah Hebert RN) Gen Hx Cystic Fibrosis: No (06/09/2016 19:34:Amirah Hebert RN) Gen Hx Huntingtons Chorea: No (06/09/2016 19:34:Amirah Hebert RN) Gen Hx Mental Retardation/Autism: No (06/09/2016 19:34:Amirah Hebert RN) Gen Hx Tested for Fragile X: No (06/09/2016 19:34:Amirah Hebert RN) Gen Hx Other Inher/Chromosomal: No (06/09/2016 19:34:Amirah Hebert RN) Gen Hx Maternal Metabolic DO: No (06/09/2016 19:34:Amirah Hebert RN) Gen Hx Pt Father or FOB Defect: No (06/09/2016 19:34:Amirah Hebert RN) Gen Hx Other Genetic History: No (06/09/2016 19:34:Amirah Hebert RN) Gen Hx Drugs/Meds since LMP: No (06/09/2016 19:34:Amirah Hebert RN)
--- NOTE | 2016-06-10 10:45 | L&D Flow Sheet ---
LD Flowsheet Datetime Report Generated by CPN: 06/10/2016 10:45 Datetime: 06/10/2016 07:29 NBP Sys/Gabriela/Mean (mmHg): 115 (QS system process) : 74 (QS system process) : 87 (QS system process) Pulse: 109 (QS system process) Pain Scale: 0 (DANIAL Buitrago) Pain Presence: None/Denies (DANIAL Buitrago) Pain Type: N/A (DANIAL Buitrago) Pain Assessment Comments: denies pain on discharge (DANIAL Buitrago) Instructional Method: Demo; Verbal; Written; Patient Instructed; Verbalized Understanding (DANIAL Buitrago) Unit Routine: Medications (DANIAL Buitrago) PTL/PROM: PTL Stimulating Activities; Hydration; Expected Outcomes (DANIAL Buitrago) Related: Nutrition; Hydration; Activity and Rest (DANIAL Buitrago) Teaching Comments: Reviewed discharge plans, educated on importance of hydration and nutritional requirements to help prevent contractions. Instructed to remain on pelvic rest and PTL stimulating activities. educated to return tonight to labor and delivery at 2100 for second dose betamethasone. Verbalized understanding of all instructions (Brenda Camp, RNC) LaborFlag: Labor (QS system process) Datetime: 06/10/2016 07:12 Patient Care Comments: EFM off for discharge to home see discharge summary (Brenda Camp, RNC) Communication: RN at Bedside; Report Given to [facility] RN (Elina Woods RN) Datetime: 06/10/2016 07:09 Dilatation (cm): 2.0 (Brenda Camp, RNC) Effacement (%): 50 (Brenda Camp, RNC) Station: -2 (Brenda Camp, RNC) Exam by: Ran Chopra (Brenda Camp, RNC) Cervix, Position: Posterior (Brenda Camp, RNC) Datetime: 06/10/2016 07:04 Provider Reviewed Strip: Yes (Brenda Jacobs, RNC) Communication: RN at Bedside; Provider at Bedside (Brenda Jacobs, RNC) Communication Comments: Dr Madrid and Eros Woods Rn at bedside for assessment. Verbalizes absent uterine contractions or cramping. Denies vaginal leaking or bleeding. (Brenda Camp, RNC) Datetime: 06/10/2016 07:00 Monitor Mode: External; Palpation (Brenda Jacobs, RNC) Monitor Mode: External; Palpation (Elina Woods, RN) Frequency (min): irregular (Brenda Camp, RNC) Frequency (min): x1 (Elina Woods, RN) Quality: Mild (Brenda Camp, RNC) Quality: Mild (Elinajeovany Woods, RN) Duration (sec): 30-45 (Brenda Camp, RNC) Duration (sec): 130 (Elina Ledgerchelo, RN) Pattern: Normal: <= 5 Contractions in 10 Minutes (Elina Woods, RN) Resting Tone (Palpate): Relaxed (Brenda Camp, RNC) Resting Tone (Palpate): Relaxed (Elina Woods, RN) Monitor Mode: External US; Auscultation (Brenda Jacobs, RNC) Monitor Mode: External US (Elina Woods RN) FHR Baseline Rate : 110 (Brenda Jacobs RNC) FHR Baseline Rate : 120 (Elina Ledgerwood, RN) FHR Baseline Changes: No Baseline Change (Elina Ledgerwood, RN) Variability: Moderate 6-25 bpm (Brenda Camp, RNC) Variability: Moderate 6-25 bpm (Elina Ledgerwood, RN) Accelerations: 15X15 (Brenda Camp, RNC) Accelerations: None (Elina Ledgerwood, RN) Decelerations: None (Brenda Camp, RNC) Decelerations: None (Elina Ledgerwood, RN) Datetime: 06/10/2016 06:52 NBP Sys/Gabriela/Mean (mmHg): 110 (QS system process) : 68 (QS system process) : 83 (QS system process) Pulse: 88 (QS system process) LaborFlag: Labor (QS system process) Datetime: 06/10/2016 06:35 I/O Interventions: Clear Liquids Given (Elina Ledgerwood, RN) Datetime: 06/10/2016 06:30 Monitor Mode: External; Palpation (Elina Ledgerwood, RN) Frequency (min): x1 (Elina Ledgerwood, RN) Quality: Mild (Elina Ledgerwood, RN) Duration (sec): 70 (Elina Ledgerwood, RN) Pattern: Normal: <= 5 Contractions in 10 Minutes (Elina Ledgerwood, RN) Resting Tone (Palpate): Relaxed (Elina Ledgerwood, RN) Monitor Mode: External US (Elina Ledgerwood, RN) FHR Baseline Rate : 125 (Elina Ledgerwood, RN) FHR Baseline Changes: No Baseline Change (Elina Ledgerwood, RN) Variability: Moderate 6-25 bpm (Elina Ledgerwood, RN) Accelerations: 15X15 (Elina Ledgerwood, RN) Decelerations: None (Elina Ledgerwood, RN) Datetime: 06/10/2016 06:22 Communication: RN at Bedside (Elina Ledgerwood, RN) Communication Comments: pt moved in the bed (Elina Ledgerwood, RN) Datetime: 06/10/2016 06:00 Monitor Mode: External; Palpation (Elina Ledgerwood, RN) Frequency (min): 6.5-7.5 (Elina Ledgerwood, RN) Quality: Mild (Elina Ledgerwood, RN) Duration (sec): 60 (Elina Ledgerwood, RN) Duration Criteria: Less than Two 120 Second Contractions (Elina Ledgerwood, RN) Pattern: Normal: <= 5 Contractions in 10 Minutes (Elina Ledgerwood, RN) Resting Tone (Palpate): Relaxed (Elina Ledgerwood, RN) Monitor Mode: External US (Elina Ledgerwood, RN) FHR Baseline Rate : 125 (Elina Ledgerwood, RN) FHR Baseline Changes: No Baseline Change (Elina Ledgerwood, RN) Variability: Moderate 6-25 bpm (Elina Ledgerwood, RN) Accelerations: 15X15 (Elina Ledgerwood, RN) Decelerations: None (Elina Ledgerwood, RN) Datetime: 06/10/2016 05:30 Monitor Mode: External; Palpation (Elina Ledgerwood, RN) Frequency (min): x1 (Elina Ledgerwood, RN) Quality: Mild (Elina Ledgerwood, RN) Duration (sec): 80 (Elina Ledgerwood, RN) Duration Criteria: Less than Two 120 Second Contractions (Elina Ledgerwood, RN) Pattern: Normal: <= 5 Contractions in 10 Minutes (Elina Ledgerwood, RN) Resting Tone (Palpate): Relaxed (Elina Ledgerwood, RN) Monitor Mode: External US (Elina Ledgerwood, RN) FHR Baseline Rate : 125 (Elina Ledgerwood, RN) FHR Baseline Changes: No Baseline Change (Elina Ledgerwood, RN) Variability: Moderate 6-25 bpm (Elina Ledgerwood, RN) Accelerations: 15X15 (Elina Ledgerwood, RN) Decelerations: None (Elina Ledgerwood, RN) Datetime: 06/10/2016 05:00 Monitor Mode: External; Palpation (Elina Ledgerwood, RN) Frequency (min): irreg (Elina Ledgerwood, RN) Quality: Mild (Elina Ledgerwood, RN) Duration (sec): 70-80 (Elina Ledgerwood, RN) Duration Criteria: Less than Two 120 Second Contractions (Elina Ledgerwood, RN) Pattern: Normal: <= 5 Contractions in 10 Minutes (Elina Ledgerwood, RN) Resting Tone (Palpate): Relaxed (Elina Ledgerwood, RN) Monitor Mode: External US (Elina Ledgerwood, RN) FHR Baseline Rate : 125 (Elina Ledgerwood, RN) FHR Baseline Changes: No Baseline Change (Elina Ledgerwood, RN) Variability: Moderate 6-25 bpm (Elina Ledgerwood, RN) Accelerations: None (Elina Ledgerwood, RN) Decelerations: None (Elina Ledgerwood, RN) Datetime: 06/10/2016 04:30 Monitor Mode: External; Palpation (Elina Ledgerwood, RN) Frequency (min): x1 (Elina Ledgerwood, RN) Quality: Mild (Elina Ledgerwood, RN) Duration (sec): 80 (Elina Ledgerwood, RN) Duration Criteria: Less than Two 120 Second Contractions (Elina Ledgerwood, RN) Pattern: Normal: <= 5 Contractions in 10 Minutes (Elina Ledgerwood, RN) Resting Tone (Palpate): Relaxed (Elina Ledgerwood, RN) Monitor Mode: External US (Elina Ledgerwood, RN) FHR Baseline Rate : 120 (Elina Ledgerwood, RN) FHR Baseline Changes: No Baseline Change (Elina Ledgerwood, RN) Variability: Moderate 6-25 bpm (Elina Ledgerwood, RN) Accelerations: None (Elina Ledgerwood, RN) Decelerations: None (Elina Ledgerwood, RN) Datetime: 06/10/2016 04:00 Monitor Mode: External; Palpation (Elina Ledgerwood, RN) Frequency (min): 8-14 (Elina Ledgerwood, RN) Quality: Mild (Elina Ledgerwood, RN) Duration (sec): 60-80 (Elina Ledgerwood, RN) Duration Criteria: Less than Two 120 Second Contractions (Elina Ledgerwood, RN) Pattern: Normal: <= 5 Contractions in 10 Minutes (Elina Ledgerwood, RN) Resting Tone (Palpate): Relaxed (Elina Ledgerwood, RN) Monitor Mode: External US (Elina Ledgerwood, RN) FHR Baseline Rate : 125 (Elina Ledgerwood, RN) FHR Baseline Changes: No Baseline Change (Elina Ledgerwood, RN) Variability: Moderate 6-25 bpm (Elina Ledgerwood, RN) Accelerations: 15X15 (Elina Ledgerwood, RN) Decelerations: None (Elina Ledgerwood, RN) Datetime: 06/10/2016 03:30 Monitor Mode: External; Palpation (Elina Ledgerwood, RN) Frequency (min): 2.5-7.5 (Elina Ledgerwood, RN) Quality: Mild (Elina Ledgerwood, RN) Duration (sec): 60-70 (Elina Ledgerwood, RN) Duration Criteria: Less than Two 120 Second Contractions (Elina Ledgerwood, RN) Pattern: Normal: <= 5 Contractions in 10 Minutes (Elina Ledgerwood, RN) Resting Tone (Palpate): Relaxed (Elina Ledgerwood, RN) Monitor Mode: External US (Elina Ledgerwood, RN) FHR Baseline Rate : 125 (Elina Ledgerwood, RN) FHR Baseline Changes: No Baseline Change (Elina Ledgerwood, RN) Variability: Moderate 6-25 bpm (Elina Ledgerwood, RN) Accelerations: 15X15 (Elina Ledgerwood, RN) Decelerations: None (Elina Ledgerwood, RN) Datetime: 06/10/2016 03:00 Monitor Mode: External; Palpation (Elina Ledgerwood, RN) Frequency (min): 7 (Elina Ledgerwood, RN) Quality: Mild (Elina Ledgerwood, RN) Duration (sec): 60-70 (Elina Ledgerwood, RN) Duration Criteria: Less than Two 120 Second Contractions (Elina Ledgerwood, RN) Pattern: Normal: <= 5 Contractions in 10 Minutes (Elina Ledgerwood, RN) Resting Tone (Palpate): Relaxed (Elina Ledgerwood, RN) Monitor Mode: External US (Elina Ledgerwood, RN) FHR Baseline Rate : 130 (Elina Ledgerwood, RN) FHR Baseline Changes: No Baseline Change (Elina Ledgerwood, RN) Variability: Moderate 6-25 bpm (Elina Ledgerwood, RN) Accelerations: 15X15 (Elina Ledgerwood, RN) Decelerations: None (Elina Ledgerwood, RN) Datetime: 06/10/2016 02:30 Monitor Mode: External; Palpation (Elina Ledgerwood, RN) Frequency (min): irreg (Elina Ledgerwood, RN) Quality: Mild (Elina Ledgerwood, RN) Duration (sec): 60-70 (Elina Ledgerwood, RN) Duration Criteria: Less than Two 120 Second Contractions (Elina Ledgerwood, RN) Pattern: Normal: <= 5 Contractions in 10 Minutes (Elina Ledgerwood, RN) Resting Tone (Palpate): Relaxed (Elina Ledgerwood, RN) Monitor Mode: External US (Elina Ledgerwood, RN) FHR Baseline Rate : 135 (Elina Ledgerwood, RN) FHR Baseline Changes: No Baseline Change (Elina Ledgerwood, RN) Variability: Moderate 6-25 bpm (Elina Ledgerwood, RN) Accelerations: 15X15 (Elina Ledgerwood, RN) Decelerations: None (Elina Ledgerwood, RN) Datetime: 06/10/2016 02:00 Monitor Mode: External; Palpation (Elina Ledgerwood, RN) Frequency (min): none (Elina Ledgerwood, RN) Resting Tone (Palpate): Relaxed (Elina Ledgerwood, RN) Contraction Comments: pt states that she feels better and does not feel any contractions. (Elina Ledgerwood, RN) Monitor Mode: External US (Elina Ledgerwood, RN) FHR Baseline Rate : 130 (Elina Ledgerwood, RN) FHR Baseline Changes: No Baseline Change (Elina Ledgerwood, RN) Variability: Moderate 6-25 bpm (Elina Ledgerwood, RN) Accelerations: 15X15 (Elina Ledgerwood, RN) Decelerations: None (Elina Ledgerwood, RN) Datetime: 06/10/2016 01:30 Monitor Mode: External; Palpation (Elina Ledgerwood, RN) Frequency (min): 7-8 (Elina Ledgerwood, RN) Quality: Mild (Elina Ledgerwood, RN) Duration (sec): 60-90 (Elina Ledgerwood, RN) Duration Criteria: Less than Two 120 Second Contractions (Elina Ledgerwood, RN) Pattern: Normal: <= 5 Contractions in 10 Minutes (Elina Ledgerwood, RN) Resting Tone (Palpate): Relaxed (Elina Ledgerwood, RN) Monitor Mode: External US (Elina Ledgerwood, RN) FHR Baseline Rate : 130 (Elina Ledgerwood, RN) FHR Baseline Changes: No Baseline Change (Elina Ledgerwood, RN) Variability: Moderate 6-25 bpm (Elina Ledgerwood, RN) Accelerations: 15X15 (Elina Ledgerwood, RN) Decelerations: None (Elina Ledgerwood, RN) Datetime: 06/10/2016 01:20 Analgesics/Sedatives: Ambien (mg) @ 5 (Elina Ledgerwood, RN) Datetime: 06/10/2016 01:00 Monitor Mode: External; Palpation (Elina Ledgerwood, RN) Frequency (min): x1 (Elina Ledgerwood, RN) Quality: Mild (Elina Ledgerwood, RN) Duration (sec): 130 (Elina Ledgerwood, RN) Pattern: Normal: <= 5 Contractions in 10 Minutes (Elina Ledgerwood, RN) Resting Tone (Palpate): Relaxed (Elina Ledgerwood, RN) Monitor Mode: External US (Elina Ledgerwood, RN) FHR Baseline Rate : 135 (Elina Ledgerwood, RN) FHR Baseline Changes: No Baseline Change (Elina Ledgerwood, RN) Variability: Moderate 6-25 bpm (Elina Ledgerwood, RN) Accelerations: 15X15 (Elina Ledgerwood, RN) Decelerations: None (Elina Ledgerwood, RN) Datetime: 06/10/2016 00:30 Monitor Mode: External; Palpation (Elina Ledgerwood, RN) Frequency (min): x1 (Elina Ledgerwood, RN) Quality: Mild (Elina Ledgerwood, RN) Duration (sec): 160 (Elina Ledgerwood, RN) Pattern: Normal: <= 5 Contractions in 10 Minutes (Elina Ledgerwood, RN) Resting Tone (Palpate): Relaxed (Elina Ledgerwood, RN) Monitor Mode: External US (Elina Ledgerwood, RN) FHR Baseline Rate : 135 (Elina Ledgerwood, RN) FHR Baseline Changes: No Baseline Change (Elina Ledgerwood, RN) Variability: Moderate 6-25 bpm (Elina Ledgerwood, RN) Accelerations: 15X15 (Elina Ledgerwood, RN) Decelerations: None (Elina Ledgerwood, RN) Datetime: 06/10/2016 00:24 NBP Sys/Gabriela/Mean (mmHg): 106 (QS system process) : 62 (QS system process) : 80 (QS system process) Pulse: 78 (QS system process) Respirations: 14 (Elina Ledgerwood, RN) LaborFlag: Labor (QS system process) Datetime: 06/10/2016 00:19 Contraction Comments: monitors on (Elina Ledgerwood, RN) Datetime: 06/09/2016 23:31 Communication: RN at Bedside (Elina Ledgerwood, RN) Communication Comments: report received from B Vitrano RN (Elina Ledgerwood, RN) Datetime: 06/09/2016 23:30 Communication Comments: Report to O. Ledgerwood, RN; care relinquished (Amirah Vitrano, RN) Datetime: 06/09/2016 23:28 Monitor Mode: External; Palpation (Elina Ledgerwood, RN) Frequency (min): x1 (Elina Ledgerwood, RN) Quality: Mild (Elina Ledgerwood, RN) Duration (sec): 90 (Elina Ledgerwood, RN) Pattern: Normal: <= 5 Contractions in 10 Minutes (Elina Ledgerwood, RN) Resting Tone (Palpate): Relaxed (Elina Ledgerwood, RN) Monitor Mode: External US (Elina Ledgerwood, RN) FHR Baseline Rate : 130 (Elina Ledgerwood, RN) FHR Baseline Changes: No Baseline Change (Elina Ledgerwood, RN) Variability: Moderate 6-25 bpm (Elina Ledgerwood, RN) Accelerations: 15X15 (Elina Ledgerwood, RN) Decelerations: None (Elina Ledgerwood, RN) Patient Care Comments: pt off the monitor to take a shower. (Elina Ledgerwood, RN) Datetime: 06/09/2016 23:20 Patient Care Comments: Consents reviewed and signed (Amirah Vitrano, RN) Datetime: 06/09/2016 23:18 Medication Comments: Betamethasone 12 mg IM L gluteal (Amirah Vitrano, RN) Datetime: 06/09/2016 23:15 Patient Care Comments: Labs drawn (Amirah Vitrano, RN) Datetime: 06/09/2016 23:11 Patient Care Comments: 18 G IV in L forearm, site WNL, saline locked (Amirah Vitrano, RN) Datetime: 06/09/2016 23:06 Communication Comments: May do VS q [address] Chopra (Amirah Vitrano, RN) Datetime: 06/09/2016 23:00 Monitor Mode: External (Amirah Vitrano, RN) Frequency (min): 5-6 (Amirah Vitrano, RN) Quality: Mild (Amirah Vitrano, RN) Duration (sec): 50-80 (Amirah Vitrano, RN) Resting Tone (Palpate): Relaxed (Amirah Vitrano, RN) Monitor Mode: External US (Amirah Vitrano, RN) FHR Baseline Rate : 130 (Amirah Vitrano, RN) Variability: Moderate 6-25 bpm (Amirah Vitrano, RN) Accelerations: 15X15 (Amirah Vitrano, RN) Decelerations: None (Amirah Vitrano, RN) Datetime: 06/09/2016 22:45 Communication Comments: Dr. Chopra at bedside reviewing POC and answering pt questions. (Amirah Hebert, RN)
--- NOTE | 2016-06-10 10:45 | L&D Discharge Summary ---
OB Discharge Summary Datetime Report Generated by CPN: 06/10/2016 10:45 DISCHARGE DIAGNOSIS Diagnosis/Symptoms: Labor Treatment/Procedures Other: Betamethasone IM, Cervical length, Gestation: 33.4 Number of Babies in Womb: 1 Parity: 1 DIET/ACTIVITY/RESTRICTIONS Diet: Regular Activity: Normal Activity Activity Restrictions: No Exercising; No Lifting; Minimize Walking; Minimize Stair Climbing; No Sexual Activity; Nothing in Vagina - [place], Tampons, Douche TEACHING/INSTRUCTIONS/REFERRALS Instructions Given To: patient Instructions Understood: Patient Verbalized Understanding Referrals: None Educational Materials- Other: care notes reviewed and signed for labor and kick counts DISCHARGE INFORMATION Discharged AMA: No Discharge Date/Time: 06/10/2016 07:50 Discharged To: Home Discharge Provider Name: Dr Chopra Accompanied By: J Cherie ST Discharge Method: Wheelchair Condition: Stable FOLLOW UP INFORMATION Follow Up With: [facility] Follow Up On: Tomorrow Follow Up Phone Number: [facility] - GENERAL INSTR-CALL PROVIDER IF: Contractions: Contractions or cramps become more frequent than 8 in one hour or 4 in 20 minutes Pressure: Pressure in your vagina or lower abdomen that may feel like the baby is pushing down Period Like Cramps: Period-like cramps or low dull backache that may come and go Cramps/Diarrhea: Abdominal cramps that may be accompanied by diarrhea Gush of Fluid/Blood: Gush of fluid or blood from your vagina (it is normal to have spotting after vaginal exam or intercourse) Vaginal Discharge: Change in the type or amount of vaginal discharge Decreased Movement: Your baby is not moving as much as usual- 4 movements in 1 hour after drinking and resting on side Temperature: Temperature greater than 100.0(F) orally
--- NOTE | 2016-06-10 10:45 | Antepartum Discharge Summary ---
Antepartum DC Datetime Report Generated by CPN: 06/10/2016 10:45 DIET/ACTIVITY/RESTRICTIONS Diet: Regular (06/10/2016 07:54:Brenda Camp, [facility]) Activity: Normal Activity (06/10/2016 07:54:Brenda Camp, [facility]) Activity Restrictions: No Exercising; No Lifting; Minimize Walking; Minimize Stair Climbing; No Sexual Activity; Nothing in Vagina - [place], Tampons, Douche (06/10/2016 07:54:Brenda Camp, [facility]) TEACHING/INSTRUCTIONS/REFERRALS Instructions Given To: patient (06/10/2016 07:54:Brenda Camp, RNC) Instructions Understood: Patient Verbalized Understanding (06/10/2016 07:54:Brenda Camp, RNC) Referrals: None (06/10/2016 07:54:Brenda Camp, RNC) Educational Materials- Other: care notes reviewed and signed for labor and kick counts (06/10/2016 07:54:Brenda Camp, RNC) DISCHARGE INFORMATION Discharged AMA: No (06/10/2016 07:54:Brenda Camp, RNC) Discharge Date/Time: 06/10/2016 07:50 (06/10/2016 07:54:Brenda Camp, RNC) Discharged To: Home (06/10/2016 07:54:Brenda Camp, RNC) Discharge Provider Name: Dr Chopra (06/10/2016 07:54:Brenda Camp, RNC) Accompanied By: Karoline RAJAN (06/10/2016 07:54:Brenda Camp, RNC) Discharge Method: Wheelchair (06/10/2016 07:54:Brenda Camp, RNC) Condition: Stable (06/10/2016 07:54:Brenda Camp, RNC) FOLLOW UP INFORMATION Follow Up With: [facility] (06/10/2016 07:54:DANIAL Buitrago) Follow Up On: Tomorrow (06/10/2016 07:54:DANIAL Buitrago) Follow Up Phone Number: [facility] - (06/10/2016 07:54:DANIAL Buitrago) GENERAL INSTR-CALL PROVIDER IF: Contractions: Contractions or cramps become more frequent than 8 in one hour or 4 in 20 minutes (06/10/2016 07:54:DANIAL Buitrago) Pressure: Pressure in your vagina or lower abdomen that may feel like the baby is pushing down (06/10/2016 07:54:DANIAL Buitrago) Period Like Cramps: Period-like cramps or low dull backache that may come and go (06/10/2016 07:54:DANIAL Buitrago) Cramps/Diarrhea: Abdominal cramps that may be accompanied by diarrhea (06/10/2016 07:54:DANIAL Buitrago) Gush of Fluid/Blood: Gush of fluid or blood from your vagina (it is normal to have spotting after vaginal exam or intercourse) (06/10/2016 07:54:DANIAL Buitrago) Vaginal Discharge: Change in the type or amount of vaginal discharge (06/10/2016 07:54:DANIAL Buitrago) Decreased Movement: Your baby is not moving as much as usual- 4 movements in 1 hour after drinking and resting on side (06/10/2016 07:54:DANIAL Buitrago) Temperature: Temperature greater than 100.0(F) orally (06/10/2016 07:54:DANIAL Buitrago)
--- NOTE | 2016-06-10 10:45 | L&D Admission Assessment ---
LD ADM ASMT Datetime Report Generated by CPN: 06/10/2016 10:45 PATIENT ASSESSMENT Assessment Type: Admission Assessment (06/09/2016 19:49:Amirah Vitrano, RN) WEIGHT Weight (lb): 161 (06/09/2016 19:41:QS system process) Weight (kg): 73.2 (06/09/2016 19:41:QS system process) Total Wt Gain (lb): 32 (06/09/2016 19:41:QS system process) Wt Gain (kg): 14.4 (06/09/2016 19:41:QS system process) PAIN Pain Scale: 0 (06/10/2016 07:29:DANIAL Buitrago) Pain Scale: 1 (06/09/2016 22:07:Amirah Hebert RN) Pain Scale: 1 (06/09/2016 19:49:Amirah Hebert RN) Pain Presence: None/Denies (06/10/2016 07:29:DANIAL Buitrago) Pain Presence: Intermittent (06/09/2016 22:07:Amirah Hebert RN) Pain Presence: Intermittent (06/09/2016 19:49:Amirah Hebert RN) Pain Type: N/A (06/10/2016 07:29:DANIAL Buitrago) Pain Type: Cramping (06/09/2016 22:07:Amirah Hebert RN) Pain Type: Cramping (06/09/2016 19:49:Amirah Hebert RN) Pain Location: Abdomen (06/09/2016 22:07:Amirah Hebert RN) Pain Location: Abdomen (06/09/2016 19:49:Amirah Hebert RN) Pain Related to Contraction: Yes (06/09/2016 19:49:Amirah Hebert RN) Pain Comments: denies pain on discharge (06/10/2016 07:29:DANIAL Buitrago) CONTRACTIONS Frequency (min): irregular (06/10/2016 07:00:Brendanessa Jacobs, RNC) Frequency (min): x1 (06/10/2016 07:00:Elina Ledgerwood, RN) Frequency (min): x1 (06/10/2016 06:30:Elina Ledgerwood, RN) Frequency (min): 6.5-7.5 (06/10/2016 06:00:Elina Ledgerwood, RN) Frequency (min): x1 (06/10/2016 05:30:Elina Ledgerwood, RN) Frequency (min): irreg (06/10/2016 05:00:Elnia Ledgerwood, RN) Frequency (min): x1 (06/10/2016 04:30:Elina Ledgerwood, RN) Frequency (min): 8-14 (06/10/2016 04:00:Elina Ledgerwood, RN) Frequency (min): 2.5-7.5 (06/10/2016 03:30:Elina Ledgerwood, RN) Frequency (min): 7 (06/10/2016 03:00:Elina Ledgerwood, RN) Frequency (min): irreg (06/10/2016 02:30:Elina Ledgerwood, RN) Frequency (min): none (06/10/2016 02:00:Elina Ledgerwood, RN) Frequency (min): 7-8 (06/10/2016 01:30:Elina Ledgerwood, RN) Frequency (min): x1 (06/10/2016 01:00:Elina Ledgerwood, RN) Frequency (min): x1 (06/10/2016 00:30:Elina Ledgerwood, RN) Frequency (min): x1 (06/09/2016 23:28:Elina Ledgerwood, RN) Frequency (min): 5-6 (06/09/2016 23:00:Amirah Vitrano, RN) Frequency (min): 3-6 (06/09/2016 22:30:Amirah Vitrano, RN) Frequency (min): 5-6 (06/09/2016 21:45:Amirah Vitrano, RN) Frequency (min): 2-7 (06/09/2016 21:30:Amirah Vitrano, RN) Frequency (min): 2-6 (06/09/2016 21:00:Amirah Vitrano, RN) Frequency (min): Irregular (06/09/2016 20:30:Amirah Vitrano, RN) Frequency (min): Irregular (06/09/2016 19:49:Amirah Vitrano, RN) Duration (sec): 30-45 (06/10/2016 07:00:Brenda Jacobs RNC) Duration (sec): 130 (06/10/2016 07:00:Elina Ledgerwood, RN) Duration (sec): 70 (06/10/2016 06:30:Elina Ledgerwood, RN) Duration (sec): 60 (06/10/2016 06:00:Elina Ledgerwood, RN) Duration (sec): 80 (06/10/2016 05:30:Elina Ledgerwood, RN) Duration (sec): 70-80 (06/10/2016 05:00:Elina Ledgerwood, RN) Duration (sec): 80 (06/10/2016 04:30:Elina Ledgerwood, RN) Duration (sec): 60-80 (06/10/2016 04:00:Elina Ledgerwood, RN) Duration (sec): 60-70 (06/10/2016 03:30:Elina Ledgerwood, RN) Duration (sec): 60-70 (06/10/2016 03:00:Elina Ledgerwood, RN) Duration (sec): 60-70 (06/10/2016 02:30:Elina Ledgerwood, RN) Duration (sec): 60-90 (06/10/2016 01:30:Elina Ledgerwood, RN) Duration (sec): 130 (06/10/2016 01:00:Elina Ledgerwood, RN) Duration (sec): 160 (06/10/2016 00:30:Elina Ledgerwood, RN) Duration (sec): 90 (06/09/2016 23:28:Elina Ledgerwood, RN) Duration (sec): 50-80 (06/09/2016 23:00:Amirah Vitrano, RN) Duration (sec): 40-70 (06/09/2016 22:30:Amirah Vitrano, RN) Duration (sec): 60-70 (06/09/2016 21:45:Amirah Vitrano, RN) Duration (sec): 50-90 (06/09/2016 21:30:Amirah Vitrano, RN) Duration (sec): 40-90 (06/09/2016 21:00:Amirah Vitrano, RN) Duration (sec): 70-90 (06/09/2016 20:30:Amirah Vitrano, RN) Quality: Mild (06/10/2016 07:00:DANIAL Buitrago) Quality: Mild (06/10/2016 07:00:Elina Woods RN) Quality: Mild (06/10/2016 06:30:Elina Woods, RN) Quality: Mild (06/10/2016 06:00:Elina Woods, RN) Quality: Mild (06/10/2016 05:30:Elina Woods, RN) Quality: Mild (06/10/2016 05:00:Elina Woods, RN) Quality: Mild (06/10/2016 04:30:Elina Woods, RN) Quality: Mild (06/10/2016 04:00:Elina Woods, RN) Quality: Mild (06/10/2016 03:30:Elina Peggy, RN) Quality: Mild (06/10/2016 03:00:Elina Peggy, RN) Quality: Mild (06/10/2016 02:30:Elina Woods, RN) Quality: Mild (06/10/2016 01:30:Elina Peggy, RN) Quality: Mild (06/10/2016 01:00:Elina Peggy, RN) Quality: Mild (06/10/2016 00:30:Elina Peggy, RN) Quality: Mild (06/09/2016 23:28:Elina Peggy, RN) Quality: Mild (06/09/2016 23:00:Amirah Meenakshiano, RN) Quality: Mild (06/09/2016 22:30:Amirah Meenakshiano, RN) Quality: Mild (06/09/2016 21:45:Amirah Vitrano, RN) Quality: Mild (06/09/2016 21:30:Amirah Meenakshiano, RN) Quality: Mild (06/09/2016 21:00:Amirah Meenakshiano, RN) Quality: Mild (06/09/2016 20:30:Amirah Vitrano, RN) Pattern: Normal: <= 5 Contractions in 10 Minutes (06/10/2016 07:00:Elina Woods RN) Pattern: Normal: <= 5 Contractions in 10 Minutes (06/10/2016 06:30:Elina Woods RN) Pattern: Normal: <= 5 Contractions in 10 Minutes (06/10/2016 06:00:Elina Peggy, RN) Pattern: Normal: <= 5 Contractions in 10 Minutes (06/10/2016 05:30:Elina Woods RN) Pattern: Normal: <= 5 Contractions in 10 Minutes (06/10/2016 05:00:Elina Peggy, RN) Pattern: Normal: <= 5 Contractions in 10 Minutes (06/10/2016 04:30:Elina Peggy RN) Pattern: Normal: <= 5 Contractions in 10 Minutes (06/10/2016 04:00:Elina Peggy, RN) Pattern: Normal: <= 5 Contractions in 10 Minutes (06/10/2016 03:30:Elina Woods RN) Pattern: Normal: <= 5 Contractions in 10 Minutes (06/10/2016 03:00:Elina Peggy RN) Pattern: Normal: <= 5 Contractions in 10 Minutes (06/10/2016 02:30:Elina Peggy RN) Pattern: Normal: <= 5 Contractions in 10 Minutes (06/10/2016 01:30:Elina Peggy, RN) Pattern: Normal: <= 5 Contractions in 10 Minutes (06/10/2016 01:00:Elina Peggy, RN) Pattern: Normal: <= 5 Contractions in 10 Minutes (06/10/2016 00:30:Elinajeovany Woods, RN) Pattern: Normal: <= 5 Contractions in 10 Minutes (06/09/2016 23:28:Elina Peggy, RN) Pattern: Normal: <= 5 Contractions in 10 Minutes (06/09/2016 22:30:Amirah Meenakshiano, RN) Pattern: Normal: <= 5 Contractions in 10 Minutes (06/09/2016 21:45:Amirah Meenakshiano, RN) Pattern: Normal: <= 5 Contractions in 10 Minutes (06/09/2016 21:30:Amirah Meenakshiano, RN) Pattern: Normal: <= 5 Contractions in 10 Minutes (06/09/2016 21:00:Amirah Meenakshiano, RN) Pattern: Normal: <= 5 Contractions in 10 Minutes (06/09/2016 20:30:Amirah Vitrano, RN) Resting Tone [place]: Relaxed (06/10/2016 07:00:DANIAL Buitrago) Resting Tone [place]: Relaxed (06/10/2016 07:00:Elina Woods, RN) Resting Tone [place]: Relaxed (06/10/2016 06:30:Elina Peggy, RN) Resting Tone [place]: Relaxed (06/10/2016 06:00:Elina Peggy, RN) Resting Tone [place]: Relaxed (06/10/2016 05:30:Elina Peggy, RN) Resting Tone [place]: Relaxed (06/10/2016 05:00:Elina Peggy, RN) Resting Tone [place]: Relaxed (06/10/2016 04:30:Elina Peggy, RN) Resting Tone [place]: Relaxed (06/10/2016 04:00:Elina Peggy, RN) Resting Tone [place]: Relaxed (06/10/2016 03:30:Elina Peggy, RN) Resting Tone [place]: Relaxed (06/10/2016 03:00:Elina Peggy, RN) Resting Tone [place]: Relaxed (06/10/2016 02:30:Elina Peggy, RN) Resting Tone [place]: Relaxed (06/10/2016 02:00:Elina Peggy, RN) Resting Tone [place]: Relaxed (06/10/2016 01:30:Elina Peggy, RN) Resting Tone [place]: Relaxed (06/10/2016 01:00:Elina Woods RN) Resting Tone [place]: Relaxed (06/10/2016 00:30:Elina Woods RN) Resting Tone [place]: Relaxed (06/09/2016 23:28:Elina Woods RN) Resting Tone [place]: Relaxed (06/09/2016 23:00:Amirah Hebert RN) Resting Tone [place]: Relaxed (06/09/2016 22:30:Amirah Hebert RN) Resting Tone [place]: Relaxed (06/09/2016 21:45:Amirah Hebert RN) Resting Tone [place]: Relaxed (06/09/2016 21:30:Amirah Hebert RN) Resting Tone [place]: Relaxed (06/09/2016 21:00:Amirah Hebert RN) Resting Tone [place]: Relaxed (06/09/2016 20:30:Amirah Hebert RN) Contraction Comments: pt states that she feels better and does not feel any contractions. (06/10/2016 02:00:Elina Woods RN) Contraction Comments: monitors on (06/10/2016 00:19:Elina Woods RN) Contraction Comments: With irritability (06/09/2016 20:30:Amirah Hebert RN) VAGINAL EXAM Dilatation (cm): 2.0 (06/10/2016 07:09:DANIAL Buitrago) Dilatation (cm): 2.0 (06/09/2016 22:40:Amirah Hebert RN) Effacement (%): 50 (06/10/2016 07:09:DANIAL Buitrago) Station: -2 (06/10/2016 07:09:Brendanessa Jacobs, [facility]) Membranes Status: Intact (06/09/2016 19:49:Amirah Vitrano, RN) NEURO Level of Consciousness: Fully Conscious (06/09/2016 19:49:Amirah Vitrano, RN) DTR's/Clonus: DTRs 2+; No Clonus (06/09/2016 19:49:Amirah Vitrano, RN) Headache: Denies (06/09/2016 19:49:Amirah Vitrano, RN) Dizziness: No (06/09/2016 19:49:Amirah Vitrano, RN) Blurred Vision: No (06/09/2016 19:49:Amirah Vitrano, RN) Extremity Numbness/Tingling : None (06/09/2016 19:49:Amirah Vitrano, RN) Extremity Movement: Full Range of Motion (06/09/2016 19:49:Amirah Vitrano, RN) CARDIOVASCULAR Heart Rhythm: Regular (06/09/2016 19:49:Amirah Vitrano, RN) Nailbeds: [place] (06/09/2016 19:49:Amirah Hebert RN) Capillary Refill: Less than 3 Seconds (06/09/2016 19:49:Amirah Hebert RN) Lower Extremities Edema: None (06/09/2016 19:49:Amirah Hebert RN) Lower Extremities Edema Degree: None (06/09/2016 19:49:Amirah Hebert RN) Upper Extremities Edema: None (06/09/2016 19:49:Amirah Hebert RN) Upper Extremities Edema Degree: None (06/09/2016 19:49:Amirah Hebert RN) Facial Edema: None (06/09/2016 19:49:Amirah Hebert RN) Jose's Sign Left Leg: Negative (06/09/2016 19:49:Amirah Hebert RN) Jose's Sign Right Leg: Negative (06/09/2016 19:49:Amirah Hebert RN) DVT RISK ASSESSMENT DVT Risk Age: Age less than 41 years (06/09/2016 19:49:Amirah Hebert RN) DVT Risk BMI: BMI<31 (06/09/2016 19:49:Amirah Hebert RN) DVT Risk Surgery: None Applicable (06/09/2016 19:49:Amirah Hebert RN) DVT Risk Other: Women Only- or (<1 month) (06/09/2016 19:49:Amirah Hebert RN) DVT Risk Total: 1 (06/09/2016 19:49:QS system process) DVT Risk Text: Low Risk (<10%) No specific measures, early ambulation (06/09/2016 19:49:QS system process) RESPIRATORY Respiratory Effort: Unlabored; Regular Rhythm; Equal Expansion (06/09/2016 19:49:Amirah LIZETH Hebert) Breath Sounds, Left: Clear and Equal (06/09/2016 19:49:Amirah Anup, RN) Breath Sounds, Right: Clear and Equal (06/09/2016 19:49:Amirah Anup RN) Cough Productivity: None (06/09/2016 19:49:Amirahfaheem Hebert RN) GASTROINTESTINAL Nausea/Vomiting: Denies (06/09/2016 19:49:Amirah Hebert RN) Bowel Sounds: Normoactive (06/09/2016 19:49:Amirah Hebert RN) RUQ Epigastric Pain: Denies (06/09/2016 19:49:Amirah Hebert RN) Bowel Patterns: Soft, Formed Stool (06/09/2016 19:49:Amirah Hebert RN) Hemorrhoids: None (06/09/2016 19:49:Amirah Hebert RN) Diet Type: Regular diet (06/09/2016 19:49:Amirah Vitrano, RN) Last Meal: 06/09/2016 18:45 (06/09/2016 19:49:Amirah Vitrano, RN) GENITOURINARY Bladder: Nondistended (06/09/2016 19:49:Amirah Vitrano, RN) Frequency of Urination: No (06/09/2016 19:49:Amirah Anup, RN) Urination Burning: No (06/09/2016 19:49:Amirah Vitrano, RN) CVA Tenderness: No (06/09/2016 19:49:Amirah Vitrano, RN) Vaginal Bleeding: None (06/09/2016 19:49:Amirah Vitrano, RN) Vaginal Discharge Amount: Small (06/09/2016 19:49:Amirah Vitrano, RN) Vaginal Discharge Color: White (06/09/2016 19:49:Amirah Vitrano, RN) Vaginal Discharge Odor: Non-Odorous (06/09/2016 19:49:Amirah Vitrano, RN) Vaginal Discharge Character: Thick (06/09/2016 19:49:Amirah Vitrano, RN) INTEGUMENTARY Skin Color: Normal for Race (06/09/2016 19:49:Amirah Hebert RN) Skin Temperature: Warm (06/09/2016 19:49:Amirah Hebert RN) Skin Moisture: Dry (06/09/2016 19:49:Amirah Hebert RN) Surgical Scars: N/A (06/09/2016 19:49:Amirah Hebert RN) Body Piercings/Tattoos: N/A (06/09/2016 19:49:Amirah Hebert RN) KODAK SKIN ASSESSMENT Kodak Scale Sensory Perception: No Impairment- Responds to verbal commands. Has no sensory deficit which would limit ability to feel or voice pain or discomfort (06/09/2016 19:49:Amirah Hebert RN) Kodak Scale Moisture: Rarely Moist- Skin is usually dry. Linen only requires changing at routine intervals (06/09/2016 19:49:Amirah Hebert RN) Kodak Scale Activity: Walks Frequently- Walks outside the room at least twice a day and inside room at least every 2 hours during the day. (06/09/2016 19:49:Amirah Hebert RN) Kodak Scale Mobility: No Limitations- Makes major and frequent changes in position without assistance (06/09/2016 19:49:Amirah Hebert RN) Kodak Scale Nutrition: Excellent- Eats most of every meal. Never refuses a meal. Usually eats a total of 4 or more servings of meat and dairy products. Occasionally eats between meals. Does not require supplementation (06/09/2016 19:49:Amirah Hebert RN) Kodak Scale Friction and Shear: No Apparent Problem- Moves in bed and in chair independently and has sufficient muscle strength to lift up completely during move. Maintains good position in bed or chair at all times (06/09/2016 19:49:Amirah Hebert RN) Kodak Scale Total: 23 (06/09/2016 19:49:QS system process) Kodak Scale Risk: No Risk of Pressure Ulcer Noted at this Time (06/09/2016 19:49:QS system process) SUPPORT Family Support: Family supportive (06/09/2016 19:49:Amirah Hebert RN) Emotional State: Calm/Relaxed (06/09/2016 19:49:Amirah Hebert RN) SAFETY Call [place] Within Reach: Yes (06/09/2016 19:49:Amirah Hebert RN) Side Rails Up: Yes (06/09/2016 19:49:Amirah Hebert RN) Bed Wheels Locked: Yes (06/09/2016 19:49:Amirah Hebert RN) Arm Bands Present: Yes (06/09/2016 19:49:Amirah Hebert RN) Isolation: [place] (06/09/2016 19:49:Amirah Hebert RN) FALL SCREEN Fall Risk History of Falling: (0) No (06/09/2016 19:49:Amirah Hebert RN) Fall Risk Secondary Diagnosis: (0) No (06/09/2016 19:49:Amirah Hebert RN) Fall Risk Ambulatory Aid: (0) None/Bedrest/Wheelchair/Nurse Assist (06/09/2016 19:49:Amirah Hebert RN) Fall Risk IV Therapy: (0) No (06/09/2016 19:49:Amirah Hebert RN) Fall Risk Gait: (0) Normal/Bedrest/Immobile (06/09/2016 19:49:Amirah Hebert RN) Fall Risk Mental Status: (0) Oriented to Own Ability (06/09/2016 19:49:Amirah Hebert RN) Fall Risk Score: 0 (06/09/2016 19:49:QS system process) Fall Risk Score Definition: No Risk: No action required (06/09/2016 19:49:QS system process) RECENT TRAVEL/INFECTIOUS DISEASE Recent Exp Communicable Disease: No (06/09/2016 19:49:Amirah Hebert RN) Cough or Fever: No (06/09/2016 19:49:Amirah Hebert RN) Foreign Travel Past 10 Days: No (06/09/2016 19:49:Amirah Hebert RN) Open Wounds or Sores: No (06/09/2016 19:49:Amirah Hebert RN) Prior Antibiotic Resistance Tx: No (06/09/2016 19:49:Amirah Hebert RN) Cultures Obtained: Not Applicable (06/09/2016 19:49:Amirah Hebert RN) Isolation Initiated: No (06/09/2016 19:49:Amirah Hebert RN) Pt/Family Education: Not Applicable (06/09/2016 19:49:Amirah Hebert RN) BABY A FHR Baseline Rate (bpm) Baby A: 110 (06/10/2016 07:00:DANIAL Buitrago) FHR Baseline Rate (bpm) Baby A: 120 (06/10/2016 07:00:Elina Woods RN) FHR Baseline Rate (bpm) Baby A: 125 (06/10/2016 06:30:Elina Woods RN) FHR Baseline Rate (bpm) Baby A: 125 (06/10/2016 06:00:Elina Woods RN) FHR Baseline Rate (bpm) Baby A: 125 (06/10/2016 05:30:Elina Woods RN) FHR Baseline Rate (bpm) Baby A: 125 (06/10/2016 05:00:Elina Woods RN) FHR Baseline Rate (bpm) Baby A: 120 (06/10/2016 04:30:Elina Woods RN) FHR Baseline Rate (bpm) Baby A: 125 (06/10/2016 04:00:Elina Woods RN) FHR Baseline Rate (bpm) Baby A: 125 (06/10/2016 03:30:Elina Woods RN) FHR Baseline Rate (bpm) Baby A: 130 (06/10/2016 03:00:Elina Woods RN) FHR Baseline Rate (bpm) Baby A: 135 (06/10/2016 02:30:Elina Woods RN) FHR Baseline Rate (bpm) Baby A: 130 (06/10/2016 02:00:Elina Woods RN) FHR Baseline Rate (bpm) Baby A: 130 (06/10/2016 01:30:Elina Woods RN) FHR Baseline Rate (bpm) Baby A: 135 (06/10/2016 01:00:Elina Woods RN) FHR Baseline Rate (bpm) Baby A: 135 (06/10/2016 00:30:Elina Woods RN) FHR Baseline Rate (bpm) Baby A: 130 (06/09/2016 23:28:Elina Woods RN) FHR Baseline Rate (bpm) Baby A: 130 (06/09/2016 23:00:Amirah Hebert RN) FHR Baseline Rate (bpm) Baby A: 140 (06/09/2016 22:30:Amirah Hebert RN) FHR Baseline Rate (bpm) Baby A: 145 (06/09/2016 21:45:Amirah Hebert RN) FHR Baseline Rate (bpm) Baby A: 140 (06/09/2016 21:30:Amirah Hebert RN) FHR Baseline Rate (bpm) Baby A: 130 (06/09/2016 21:00:Amirah Hebert RN) FHR Baseline Rate (bpm) Baby A: 130 (06/09/2016 20:30:Amirah Vitrano, RN) Variability Baby A: Moderate 6-25 bpm (06/10/2016 07:00:DANIAL Buitrago) Variability Baby A: Moderate 6-25 bpm (06/10/2016 07:00:Elina Woods RN) Variability Baby A: Moderate 6-25 bpm (06/10/2016 06:30:Elina Woods RN) Variability Baby A: Moderate 6-25 bpm (06/10/2016 06:00:Elina Woods RN) Variability Baby A: Moderate 6-25 bpm (06/10/2016 05:30:Elinajeovany Woods, RN) Variability Baby A: Moderate 6-25 bpm (06/10/2016 05:00:Elina Woods RN) Variability Baby A: Moderate 6-25 bpm (06/10/2016 04:30:Elina Woods RN) Variability Baby A: Moderate 6-25 bpm (06/10/2016 04:00:Elina Woods RN) Variability Baby A: Moderate 6-25 bpm (06/10/2016 03:30:Elina Woods RN) Variability Baby A: Moderate 6-25 bpm (06/10/2016 03:00:Elina Woods RN) Variability Baby A: Moderate 6-25 bpm (06/10/2016 02:30:Elina Woods RN) Variability Baby A: Moderate 6-25 bpm (06/10/2016 02:00:Elina Woods RN) Variability Baby A: Moderate 6-25 bpm (06/10/2016 01:30:Elina Woods RN) Variability Baby A: Moderate 6-25 bpm (06/10/2016 01:00:Elina Woods RN) Variability Baby A: Moderate 6-25 bpm (06/10/2016 00:30:Elinajeovany Woods RN) Variability Baby A: Moderate 6-25 bpm (06/09/2016 23:28:Elina Woods RN) Variability Baby A: Moderate 6-25 bpm (06/09/2016 23:00:Amirah Hebert RN) Variability Baby A: Moderate 6-25 bpm (06/09/2016 22:30:Amirah Hebert RN) Variability Baby A: Moderate 6-25 bpm (06/09/2016 21:45:Amirah Hebert RN) Variability Baby A: Moderate 6-25 bpm (06/09/2016 21:30:Amirahlilliam Hebert RN) Variability Baby A: Moderate 6-25 bpm (06/09/2016 21:00:Amirahlilliam Hebert RN) Variability Baby A: Moderate 6-25 bpm (06/09/2016 20:30:Amirahlilliam Hebert RN) Accelerations Baby A: 15X15 (06/10/2016 07:00:DANIAL Buitrago) Accelerations Baby A: None (06/10/2016 07:00:Elina Woods RN) Accelerations Baby A: 15X15 (06/10/2016 06:30:Elina Woods RN) Accelerations Baby A: 15X15 (06/10/2016 06:00:Elina Woods RN) Accelerations Baby A: 15X15 (06/10/2016 05:30:Elina Woods RN) Accelerations Baby A: None (06/10/2016 05:00:Elina Woods RN) Accelerations Baby A: None (06/10/2016 04:30:Elina Woods RN) Accelerations Baby A: 15X15 (06/10/2016 04:00:Elina Woods RN) Accelerations Baby A: 15X15 (06/10/2016 03:30:Elina Woods RN) Accelerations Baby A: 15X15 (06/10/2016 03:00:Elina Woods RN) Accelerations Baby A: 15X15 (06/10/2016 02:30:Elina Woods RN) Accelerations Baby A: 15X15 (06/10/2016 02:00:Elina Woods RN) Accelerations Baby A: 15X15 (06/10/2016 01:30:Elina Woods RN) Accelerations Baby A: 15X15 (06/10/2016 01:00:Elina Woods RN) Accelerations Baby A: 15X15 (06/10/2016 00:30:Elina Woods RN) Accelerations Baby A: 15X15 (06/09/2016 23:28:Elina Woods RN) Accelerations Baby A: 15X15 (06/09/2016 23:00:Amirah Hebert RN) Accelerations Baby A: 10X10 (06/09/2016 22:30:Amirah Hebert RN) Accelerations Baby A: 15X15 (06/09/2016 21:45:Amirah Hebert RN) Accelerations Baby A: Prolonged (06/09/2016 21:30:Amirah Hebert RN) Accelerations Baby A: 15X15 (06/09/2016 21:00:Amirah Hebert RN) Accelerations Baby A: 15X15 (06/09/2016 20:30:Amirah Hebert RN) Decelerations Baby A: None (06/10/2016 07:00:DANIAL Buitrago) Decelerations Baby A: None (06/10/2016 07:00:Elina Woods RN) Decelerations Baby A: None (06/10/2016 06:30:Elina Woods RN) Decelerations Baby A: None (06/10/2016 06:00:Elina Woods RN) Decelerations Baby A: None (06/10/2016 05:30:Elina Woods RN) Decelerations Baby A: None (06/10/2016 05:00:Elina Woods RN) Decelerations Baby A: None (06/10/2016 04:30:Elina Woods RN) Decelerations Baby A: None (06/10/2016 04:00:Elina Woods RN) Decelerations Baby A: None (06/10/2016 03:30:Elina Woods RN) Decelerations Baby A: None (06/10/2016 03:00:Elina Woods RN) Decelerations Baby A: None (06/10/2016 02:30:Elina Woods RN) Decelerations Baby A: None (06/10/2016 02:00:Elina Woods RN) Decelerations Baby A: None (06/10/2016 01:30:Elina Woods RN) Decelerations Baby A: None (06/10/2016 01:00:Elina Woods RN) Decelerations Baby A: None (06/10/2016 00:30:Elina Woods RN) Decelerations Baby A: None (06/09/2016 23:28:Elina Woods RN) Decelerations Baby A: None (06/09/2016 23:00:Amirah Hebert RN) Decelerations Baby A: None (06/09/2016 22:30:Amirah Hebert RN) Decelerations Baby A: None (06/09/2016 21:45:Amirah Hebert RN) Decelerations Baby A: None (06/09/2016 21:30:Amirah Hebert RN) Decelerations Baby A: None (06/09/2016 21:00:Amirah Hebert RN) Decelerations Baby A: None (06/09/2016 20:30:Amirah Hebert RN) ADDITIONAL COMMENTS Assessment Flag: Admission Assessment (06/09/2016 19:49:QS system process)
--- NOTE | 2016-06-10 10:45 | L&D Current Admission ---
Current Admit Datetime Report Generated by CPN: 06/10/2016 10:45 ADMISSION INFORMATION Current Admit Date/Time: 06/09/2016 22:43 (06/09/2016 22:59:Amirah Hebert RN) Reason for Admission: Observation (06/09/2016 22:59:Amirah Hebert RN) Chief Complaint: Contractions (06/09/2016 22:59:Amirah Hebert RN) Chief Complaint: Uterine Cramping (06/09/2016 19:49:Amirah Hebert RN) EGA per Dates: 33.4 (06/09/2016 22:59:QS system process) Method of Arrival: Wheelchair (06/09/2016 22:59:Amirah Hebert RN) Admitted From: Home (06/09/2016 22:59:Amirah Hebert RN) Reason for Induction: Not Applicable (06/09/2016 22:59:Amirah Hebert RN) Records Available: Yes (06/09/2016 22:59:Amirah Hebert RN) General Admission Information: Reviewed; Confirmed (06/09/2016 22:59:Amirah Hebert RN) General Admission Reviewed By: Deo Hebert RN (06/09/2016 22:59:Amirah Hebert RN) BELONGINGS/ADVANCED DIRECTIVES Other Belongings: See belongings consent (06/09/2016 22:59:Amirah Hebert RN) Disposition of Belongings: Kept with Patient (06/09/2016 22:59:Amirah Hebert RN) Advance Direct for Healthcare: No, and Wants No Information (06/09/2016 22:59:Amirah Hebert RN) Durable Power of Vault Mechanic: No (06/09/2016 22:59:Amirah Hebert RN) Living Will: No (06/09/2016 22:59:Amirah Hebert RN) Organ Donor: Yes (06/09/2016 22:59:Amirah Hebert RN) Pt Rights Information Given: Yes (06/09/2016 22:59:Amirah Hebert RN) Pt Understands Pt Rights: Yes (06/09/2016 22:59:Amirah Hebert RN) LEARNING ASSESSMENT Knowledge Level: Understands L_D Process; Understands Care Activities; Had Pre-Hospital Education; Understands Diagnosis (06/09/2016 22:59:Amirah Hebert RN) Barriers to Learning: None (06/09/2016 22:59:Amirah Hebert RN) Learning Readiness: Motivated (06/09/2016 22:59:Amirah Hebert RN) Learns Best By: 1 to 1 Instruction (06/09/2016 22:59:Amirah Hebert RN) Learning Needs: Labor and Delivery Process; Pain Management; Symptoms to Report; Treatment Plan; Medication; Diagnosis; Nutrition (06/09/2016 22:59:Amirah Hebert RN) DOMESTIC VIOLANCE SCREENING Dom Viol Threatened/Hurt: No (06/09/2016 22:59:Amirah Hebert RN) Hx of Abuse/Neglect past 2yrs: No (06/09/2016 22:59:Amirah Hebert RN) Feel Unsafe Going Home: No (06/09/2016 22:59:Amirah Hebert RN) Addt'l Observ Indicating Abuse: No (06/09/2016 22:59:Amirah Hebert RN) Reason Unable to Complete Screen: N/A, Screen Completed (06/09/2016 22:59:Amirah Hebert RN) Considered Personal Harm/Suicide: No (06/09/2016 22:59:Amirah Hebert RN) NUTRITIONAL/FUNCTIONAL SCREENING Problem with Appetite >5 Days: No (06/09/2016 22:59:Amirah Hebert RN) Chew/Swallow Difficulties: No (06/09/2016 22:59:Amirah Hebert RN) Inappropriate Wt Gain/Loss: No (06/09/2016 22:59:Amirah Hebert RN) Presence Skin Breakdown/Ulcer: No (06/09/2016 22:59:Amirha Hebert RN) Special Diet: No (06/09/2016 22:59:Amirah Hebert RN) Pt Requests Education And Training Coordinator Visit: No (06/09/2016 22:59:Amirah Hebert RN) Hx of Any of the Following?: N/A (06/09/2016 22:59:Amirah Hebert RN) New Diagnosis of: N/A (06/09/2016 22:59:Amirah Hebert RN) Requires Assist w/Ambulation: No (06/09/2016 22:59:Amirah Hebert RN) Uses Assist Device to Ambulate: No (06/09/2016 22:59:Amirah Hebert RN) Pt Requires Help w/ADL's: No (06/09/2016 22:59:Amirah Hebert RN)
--- NOTE | 2016-06-11 17:05 | PDOC DISCHARGE SUMMARY ---
General - Admit/Disc Date/PCP Admission Date/Primary Care Provider: 06/09/16 23:00 RYAN ACUÑA CNM Discharge Date: 06/10/16 - Discharge Diagnosis (1) labor Is this a current diagnosis for this admission?: YesSummary: Contractions have resolved overnight and her cervix is unchanged. She will return for BMZ this evening. F/u on Thursday in the office. - Additional Information Home Medications: Vit No.78/Iron/FA [Prenatabs FA Tablet] 1 tab PO DAILY 03/09/13 Nitrofurantoin Monohyd/M-Cryst [Macrobid 100 mg Capsule] 100 mg PO DAILY History of Present Illness History of Present Illness: LIZA DISLA is a 31 year old female Physical Exam - Physical Exam Vital Signs: Intake & Output 06/09/16 06/10/16 06/11/16 06:59 06:59 06:59 Weight 72.5 kg General appearance: PRESENT: no acute distress, well-developed, well-nourished Head exam: PRESENT: atraumatic, normocephalic Respiratory exam: PRESENT: clear to auscultation jelly, unlabored. ABSENT: rhonchi, tachypnea Cardiovascular exam: PRESENT: RRR. ABSENT: diastolic murmur, rubs, systolic murmur Pulses: PRESENT: normal dorsalis pedis pul, +2 pedal pulses bilateral GI/Abdominal exam: PRESENT: normal bowel sounds, soft. ABSENT: distended, guarding, mass, organolmegaly, rebound, tenderness Rectal exam: PRESENT: deferred Extremities exam: PRESENT: full ROM. ABSENT: calf tenderness, clubbing, pedal edema Neurological exam: PRESENT: alert, awake, oriented to person, oriented to place , oriented to time, oriented to situation, CN II-XII grossly intact. ABSENT: motor sensory deficit Psychiatric exam: PRESENT: appropriate affect, normal mood. ABSENT: homicidal ideation, suicidal ideation Skin exam: PRESENT: dry, intact, warm. ABSENT: cyanosis, rash Result Laboratory Results: 06/09/16 23:16 06/09/16 06/09/16 06/09/16 19:40 23:16 23:16 WBC 12.7 H RBC 3.76 Hgb 11.7 L Hct 33.6 L MCV 89 MCH 31.3 MCHC 35.0 RDW 12.8 Plt Count 273 Seg Neutrophils % 78.4 H Lymphocytes % 14.7 Monocytes % 6.0 Eosinophils % 0.8 Basophils % 0.1 Absolute Neutrophils 10.0 H Absolute Lymphocytes 1.9 Absolute Monocytes 0.8 Absolute Eosinophils 0.1 Absolute Basophils 0.0 Urine Color COLORLESS Urine Appearance CLEAR Urine pH 7.0 Ur Specific [place] 1.003 Urine Protein NEGATIVE Urine Glucose (UA) NEGATIVE Urine Ketones TRACE H Urine Blood NEGATIVE Urine Nitrite NEGATIVE Ur Leukocyte Esterase TRACE H Urine WBC (Auto) 2 Blood Type A POSITIVE Antibody Screen NEGATIVE Impressions: Obstetrics Ultrasound 06/09/16 00:00 IMPRESSION: LIMITED OBSTETRICAL ULTRASOUND WITH MEASURED PARAMETERS DELINEATED ABOVE. Trimester of : Third trimester - 28 weeks to delivery. Plan Discharge Plan: No change in cervical exam . F/u tonight for BMZ and then f/u in Office on thu Time Spent: Less than 30 Minutes
--- NOTE | 2016-06-13 10:02 | Admission Physical ---
Datetime Report Generated by CPN: 06/13/2016 10:01 CURRENT ADMISSION Chief Complaint: Uterine Contractions Indication for Induction: Not Applicable Admit Plan: Admit to Unit; Initiate Labor Protocol ALLERGIES Medication Allergies: No Medication Allergies: No Known Allergies (06/09/2016) Medication Allergies: No Known Allergies (05/24/2013) Latex: No Latex Allergies Food Allergies: N/A Environmental Allergies: N/A OBSTETRICAL HISTORY EDC: 07/24/2016 00:00 : 2 Para: 1 Term: 1 : 0 SAB: 0 IAB: 0 Ectopic: 0 Livin Cesareans: 0 VBACs: 0 Multiple Births: 0 Gestational Diabetes: No Rh Sensitization: No Incompetent Cervix: No DIVYA: No Infertility: No ART Treatment: No Uterine Anomaly: No IUGR: No Hx Previous C/S: No Macrosomia: No Hx Loss/Stillborn: No PIH: No Hx : No Placenta Previa/Abruption: No Depression/PP Depression: No PTL/PROM: Yes Post Hemorrhage: No Current Procedures: Ultrasound Obstetrical History Comments: G1: 2013 baby girl, 41.1 weeks, 7 lb 0 oz; PTL at 29 weeks G2: Current; at 31 weeks SEE RECORDS Alcohol: No Marijuana : No Cocaine: No Other Illicit Drugs: No Cigarettes: Never Smoker. [id number] MEDICAL HISTORY Diabetes: No Blood Transfusion: No Pulmonary Disease (Asthma, TB): No Breast Disease: No Hypertension: No Enrollment Management Manager Surgery: No Heart Disease: No Hosp/Surgery: No Autoimmune Disorder: No Anesthetic Complications: No Kidney Disease: Yes Abnormal Pap Smear: No Neuro/Epilepsy: No Psychiatric Disorders: No Other Medical Diseases: No Hepatitis/Liver Disease: No Significant Family History: No Varicosities/Phlebitis: No Trauma/Violence : No Thyroid Dysfunction: No Medical History Comments: UTI: Frequent UTIs, Macrobid prophylactically after intercourse INFECTIOUS HISTORY Gonorrhea: No Genital Herpes: No Chlamydia: No Tuberculosis: No Syphilis: No Hepatitis: No HIV/AIDS Exposure: No Rash or Viral Illness: No HPV: No PHYSICAL EXAM General: Normal HEENT: Normal Neurologic: Normal Thyroid: Normal Heart: Normal Lungs: Normal Breast: Deferred Back: Normal Abdomen: Normal Genitourinary Exam: Normal Extremities: Normal DTRs: Normal Pelvic Type: Adequate Vital Signs: Reviewed; Within Normal Limits VAGINAL EXAM Dilatation: 2 Effacement: 60 Station: -2 FETUS A EGA: 33.5 Monitoring: External US FHR- Baseline: 120 Accelerations: 15X15 Decelerations: None FHR Category: Category I Presentation: Vertex Admit Comment: 31yo at 33+5ega presents for ctx and pelvic cramping like a menses. She has a history of PTL at 29wks with G1 but delivery at term (7# baby). cvx is 2cm and cervical length is shortened at 1.6cm. Prior cvx exam at 31wks was 1-2 by a different examiner. Plan for BMZ and rest. Ctx q 4 minutes initially. Will hydrate and re-evaluate in the morning. May need to stay and complete BMZ. Deliver for unstoppable labor or maternal/ indications. GBS unknown - no PCN at this time due to not imminent delivery. PLANS FOR LABOR AND DELIVERY Labor and Delivery: None Pain Management: Natural Feeding Preference: Breast Benefit of Breast Feed Discussed: Yes Circumcision: Yes INFORMED CONSENT Informed Consent Obtained: Vaginal Delivery; Risks, Benefits and Alternatives Discussed Signature: with User ID: [email or web address]
--- NOTE | 2016-06-13 10:02 | Non Stress Test Report ---
Non Stress Test Datetime Report Generated by CPN: 06/13/2016 10:01 DEMOGRAPHIC Test Number: 1 EGA NST: 33.4 INDICATION Indication for Study: Ordered by Provider VITAL SIGNS Temperature - NST: 98.0 Pulse - NST: 109 RESP - NST: 16 NBPSYS NST: 115 NBPDIA NST: 74 MONITORING Monitor Explained: Monitor Explained; Test Explained; Patient Verbalized Understanding Time on Monitor: 06/09/2016 19:48 Time off Monitor: 06/10/2016 07:12 NST Duration: 684 NST INTERVENTIONS NST Interventions: PO Hydration Physician Notified NST: Dr. Chopra BABY A: [id number] BABY A Movement : Present Contraction Frequency : Irregular FHR Baseline : 130 Accelerations : 15X15 Decelerations : None Variability : Moderate 6-25bpm NST Review: Meets Criteria for Reactive NST NST Review and Verified By : Brenda Jacobs RNC NST Results: Reactive NST REPORT Report Trigger: Send Report
== END 2016-06-10 07:50 | disposition home or self-care (01) ==
LOC: LC 19:30 → LR 23:00 → INTOOBSV 23:00
PROVIDERS: ADMIT Student in an Organized Health Care Education/Training Program; ATTEND Student in an Organized Health Care Education/Training Program
PROC: 3E023GC Introduction of Other Therapeutic Substance into Muscle, Percutaneous Approach (ICD-10-PCS; principal; 2016-06-09)
DX: O60.03 Preterm labor without delivery, third trimester (principal); Z3A.33 33 weeks gestation of pregnancy
CPT/HCPCS: 59025; 96372; 86900; 86901; 36415; 86850; 85025; 86592; 81001; 80307; 76815; G0378; G0379; J0702

== ENCOUNTER 2016-06-10 20:27 | Outpatient (CLI) | payer OTHER ==
[2016-06-10] MEDS ORDERED: BETAMET ACET/BETAMET NA INJ 6 MG/1 ML ONE (20:36)
[2016-06-10] MEDS ORDERED: BETAMET ACET/BETAMET NA INJ 6 MG/1 ML IM ONE (20:59)
--- NOTE | 2016-06-14 06:01 | L&D Current Admission ---
Current Admit Datetime Report Generated by CPN: 06/14/2016 06:00 ADMISSION INFORMATION Current Admit Date/Time: 06/09/2016 22:43 (06/09/2016 22:59:Amirah Hebert RN) Reason for Admission: Observation (06/09/2016 22:59:Amirah Hebert RN) Chief Complaint: Contractions (06/09/2016 22:59:Amirah Hebert RN) EGA per Dates: 33.4 (06/09/2016 22:59:QS system process) Method of Arrival: Wheelchair (06/09/2016 22:59:Amirah Hebert RN) Admitted From: Home (06/09/2016 22:59:Amirah Hebert RN) Reason for Induction: Not Applicable (06/09/2016 22:59:Amirah Hebert RN) Records Available: Yes (06/09/2016 22:59:Amirah Hebret RN) General Admission Information: Reviewed; Confirmed (06/09/2016 22:59:Amirah Hebert RN) General Admission Reviewed By: Deo Hebert RN (06/09/2016 22:59:Amirah Hebert RN) BELONGINGS/ADVANCED DIRECTIVES Other Belongings: See belongings consent (06/09/2016 22:59:Amirah Hebert RN) Disposition of Belongings: Kept with Patient (06/09/2016 22:59:Amirah Hebert RN) Advance Direct for Healthcare: No, and Wants No Information (06/09/2016 22:59:Amirah Hebert RN) Durable Power of Reactor Technician: No (06/09/2016 22:59:Amirah Hebert RN) Living Will: No (06/09/2016 22:59:Amirah Hebert RN) Organ Donor: Yes (06/09/2016 22:59:Amirah Hebert RN) Pt Rights Information Given: Yes (06/09/2016 22:59:Amirah Hebert RN) Pt Understands Pt Rights: Yes (06/09/2016 22:59:Amirah Hebert RN) LEARNING ASSESSMENT Knowledge Level: Understands L_D Process; Understands Care Activities; Had Pre-Hospital Education; Understands Diagnosis (06/09/2016 22:59:Amirah Hebert RN) Barriers to Learning: None (06/09/2016 22:59:Amirah Hebert RN) Learning Readiness: Motivated (06/09/2016 22:59:Amirah Hebert RN) Learns Best By: 1 to 1 Instruction (06/09/2016 22:59:Amirah Hebert RN) Learning Needs: Labor and Delivery Process; Pain Management; Symptoms to Report; Treatment Plan; Medication; Diagnosis; Nutrition (06/09/2016 22:59:Amirah Hebert RN) DOMESTIC VIOLANCE SCREENING Dom Viol Threatened/Hurt: No (06/09/2016 22:59:Amirah Hebert RN) Hx of Abuse/Neglect past 2yrs: No (06/09/2016 22:59:Amirah Hebert RN) Feel Unsafe Going Home: No (06/09/2016 22:59:Amirah Hebert RN) Addt'l Observ Indicating Abuse: No (06/09/2016 22:59:Amirah Hebert RN) Reason Unable to Complete Screen: N/A, Screen Completed (06/09/2016 22:59:Amirah Hebert RN) Considered Personal Harm/Suicide: No (06/09/2016 22:59:Amirah Hebert RN) NUTRITIONAL/FUNCTIONAL SCREENING Problem with Appetite >5 Days: No (06/09/2016 22:59:Amirah Hebert RN) Chew/Swallow Difficulties: No (06/09/2016 22:59:Amirah Hebert RN) Inappropriate Wt Gain/Loss: No (06/09/2016 22:59:Amirah Hebert RN) Presence Skin Breakdown/Ulcer: No (06/09/2016 22:59:Amirah Hebert RN) Special Diet: No (06/09/2016 22:59:Amirah Hebert RN) Pt Requests Commercial Horticulture Instructor Visit: No (06/09/2016 22:59:Amirah Hebert RN) Hx of Any of the Following?: N/A (06/09/2016 22:59:Amirah Hebert RN) New Diagnosis of: N/A (06/09/2016 22:59:Amirah Hebert RN) Requires Assist w/Ambulation: No (06/09/2016 22:59:Amirah Hebert RN) Uses Assist Device to Ambulate: No (06/09/2016 22:59:Amirah Hebert RN) Pt Requires Help w/ADL's: No (06/09/2016 22:59:Amirah Hebert RN)
--- NOTE | 2016-06-14 06:01 | L&D General Admission ---
General Admit Datetime Report Generated by CPN: 06/14/2016 06:00 INFORMATION Patient Age: 30 (06/09/2016 19:30:QS system process) EDC: 07/24/2016 00:00 (06/09/2016 19:34:Amirah Hebert RN) : 2 (06/09/2016 19:34:Amirah Hebert RN) Para: 1 (06/09/2016 19:34:Amirah Hebert RN) Term: 1 (06/09/2016 19:34:Amirah Hebert RN) : 0 (06/09/2016 19:34:Amirah Hebert RN) Spontaneous Abortions: 0 (06/09/2016 19:34:Amirah Hebert RN) Induced Abortions: 0 (06/09/2016 19:34:Amirah Hebert RN) Livin (06/09/2016 19:34:Amirah Hebert RN) Cesareans: 0 (06/09/2016 19:34:Amirah Hebert RN) VBACs: 0 (06/09/2016 19:34:Amirah Hebert RN) Ectopic: 0 (06/09/2016 19:34:Amirah Hebert RN) Multiple Births: 0 (06/09/2016 19:34:Amirah Hebert RN) Baby, Number in Womb: 1 (06/09/2016 19:34:Amirah Hebert RN) CARE Primary Fish Net Stringer: [facility] (06/09/2016 19:34:Amirah Hebert RN) Month of 1st Visit: 12/2015 (06/09/2016 19:34:Amirah Hebert RN) Adequate Care: Yes (06/09/2016 19:34:Amirah Hebert RN) Prepregnancy Weight (lb): 129 (06/09/2016 19:34:Amirah Hebert RN) Prepregnancy Weight (kg): 58.6 (06/09/2016 19:34:QS system process) Height (in): 67 (06/09/2016 19:41:QS system process) ALLERGIES Medication Allergy: No (06/09/2016 19:34:Amirah Hebert RN) Medication Allergies: No Known Allergies (06/09/2016) (06/09/2016 19:41:QS system process) Latex Allergy: No Latex Allergies (06/09/2016 19:34:Amirah Hebert RN) Food Allergies: N/A (06/09/2016 19:34:Amirah Hebert RN) Environmental Allergies: N/A (06/09/2016 19:34:Amirah Hebert RN) COMMUNICATION Primary Language: Sri Lankan (06/09/2016 19:34:Amirah Hebert RN) Medical Tx Preferred Language: [place] Lankan (06/09/2016 19:34:Amirah Hebert RN) Communication Barrier(s): None (06/09/2016 19:34:Amirah Hebert RN) DEMOGRAPHICS Address: [address] [place] [id number] (06/09/2016 19:30:QS system process) Zipcode: [address] (06/09/2016 19:30:QS system process) Home (06/09/2016 19:30:QS system process) N: [id number] (06/09/2016 19:30:QS system process) Next of Kin Name: ADOLFO MILLS (06/09/2016 19:30:QS system process) Next of Kin (06/09/2016 19:30:QS system process) Next of Kin Relationship: MO (06/09/2016 19:30:QS system process) Date of : 1985 (06/09/2016 19:30:QS system process) Marital Status: (06/09/2016 19:30:QS system process) Sex: Female (06/09/2016 19:30:QS system process) Race: (06/09/2016 19:30:QS system process) Ethnicity: Non- or (06/09/2016 19:30:QS system process) Jainism: Taoism (06/09/2016 19:30:QS system process) DRUG AND ALCOHOL USE Alcohol: No (06/09/2016 19:34:Amirah Hebert RN) Cigarettes: Never Smoker. [id number] (06/09/2016 19:34:Amirah Hebert RN) Marijuana: No (06/09/2016 19:34:Amirah Hebert RN) Cocaine: No (06/09/2016 19:34:Amirah Hebert RN) Other Illicit Drugs: No (06/09/2016 19:34:Amirah Hebert RN) VACCINE HISTORY Influenza Vaccine: Yes (06/09/2016 19:34:Amirah Hebert RN) Pneumococcal Vaccine: No (06/09/2016 19:34:Amirah Hebert RN) Tetanus Vaccine: Yes (06/09/2016 19:34:Amirah Hebert RN) Tdap Vaccine: Yes (06/09/2016 19:34:Amirah Hebert RN) Hepatitis B Vaccine: Yes (06/09/2016 19:34:Amirah Hebert RN) Level Glass Forming Machine Operator: [facility] (06/09/2016 19:34:Amirah Hebert RN) Feeding Preference: Breast (06/09/2016 19:34:Amirah Hebert RN) Benefit of Breast Feed Discussed: Yes (06/09/2016 19:34:Amirah Hebetr RN) Circumcision: Yes (06/09/2016 19:34:Amirah Hebert RN) Classes Attended: No (06/09/2016 19:34:Amirah Hebert RN) Tubal Ligation: No (06/09/2016 19:34:Amirah Hebert RN) Tubal Authorization Signed: N/A (06/09/2016 19:34:Amirah Hebert RN) Consent: N/A (06/09/2016 19:34:Amirah Hebert RN) Consent Signed: N/A (06/09/2016 19:34:Amirah Hebert RN) Pain Management Plans: Natural (06/09/2016 19:34:Amirah Hebert RN) Plans for Labor and Delivery: None (06/09/2016 19:34:Amirah Hebert RN) Support Person: Tye (06/09/2016 19:34:Amirah Hebert RN) Support Person Relationship: (06/09/2016 19:34:Amirah Hebert RN) Cultural/Spritual Practice: No (06/09/2016 19:34:Amirah Hebert RN) Spir/Cult Dietary Needs: No (06/09/2016 19:34:Amirah Hebert RN) LIVING SITUATION/DISCHARGE PLAN Living Arrangements: House (06/09/2016 19:34:Amirah Hebert RN) Adequate Access to:: Electric; Heat; Refrigeration; Plumbing/Running water; Phone; Transportation (06/09/2016 19:34:Amirah Hebert RN) WIC Program: No (06/09/2016 19:34:Amirah Hebert RN) Discharge Group Social Worker Person: (06/09/2016 19:34:Amirah Hebert RN) Person to Help after Discharge: (06/09/2016 19:34:Amirah Hebert RN) Currently Using Commun Resources: Elizabeth (06/09/2016 19:34:Amirah Hebert RN) Outside Agency/Senior Java Programmer: No (06/09/2016 19:34:Amirah Hebert RN) Car Seat for Discharge: Yes (06/09/2016 19:34:Amirah Hebert RN) Adoption Requested: No (06/09/2016 19:34:Amirah Hebert RN) Pt Contact w/ Post : N/A (06/09/2016 19:34:Amirah Hebert RN) LABS Blood Type: A Positive (06/09/2016 19:34:Amirah Hebert RN) Antibody Screen: Negative (06/09/2016 19:34:Amirah Hebert RN) Rho(G) this : Not Applicable (06/09/2016 19:34:Amirah Hebert RN) Hemoglobin: 11.7 L (06/09/2016 23:16:QS system process) Hematocrit: 33.6 L (06/09/2016 23:16:QS system process) MCV: 89 (06/09/2016 23:16:QS system process) RPR/VDRL: Nonreactive (06/09/2016 19:34:Amirah eHbert RN) HIV Exposure Test: Negative (06/09/2016 19:34:Amirah Hebert RN) Hepatitis B: Negative (06/09/2016 19:34:Amirah Hebert RN) Rubella: Immune (06/09/2016 19:34:Amirah Hebert RN) OB/PREVIOUS HISTORY Previous Procedures: Ultrasound; NST (06/09/2016 19:34:Amirah Hebert RN) Current Procedures: Ultrasound (06/09/2016 19:34:Amirah Hebert RN) History of Previous : No (06/09/2016 19:34:Amirah Hebert RN) History of Gestational Diabetes: No (06/09/2016 19:34:Amirah Hebert RN) History of PIH: No (06/09/2016 19:34:Amirah Hebert RN) History of Incompetent Cervix: No (06/09/2016 19:34:Amirah Hebert RN) History of Placenta Previa/Abrup: No (06/09/2016 19:34:Amirah Hebert RN) History of Macrosomia: No (06/09/2016 19:34:Amirah Hebert RN) History of IUGR: No (06/09/2016 19:34:Amirah Hebert RN) History of Hemorrhage: No (06/09/2016 19:34:Amirah Hebert RN) History of Loss/Stillborn: No (06/09/2016 19:34:Amirah Hebert RN) History of : No (06/09/2016 19:34:Amirah Hebert RN) History of D (Rh) Sensitization: No (06/09/2016 19:34:Amirah Hebert RN) History Recurrent Loss/Stillborn: No (06/09/2016 19:34:Amirah Hebert RN) History Depression/PP Depression: No (06/09/2016 19:34:Amirah Hebert RN) History of Uterine Anomaly/DIVYA: No (06/09/2016 19:34:Amirah Hebert RN) History of Infertility: No (06/09/2016 19:34:Amirah Hebert RN) History of ART Treatment: No (06/09/2016 19:34:Amirah Hebert RN) History of DIVYA: No (06/09/2016 19:34:Amirah Hebert RN) Comments Obstetrical History: G1: 2014 baby girl, 41.1 weeks, 7 lb 0 oz; PTL at 29 weeks G2: Current; 1-2/50/-2 at 31 weeks (06/09/2016 19:34:Amirah Hebert RN) MEDICAL HISTORY Med Hx Diabetes: No (06/09/2016 19:34:Amirah Hebert RN) Med Hx Hypertension: No (06/09/2016 19:34:Amirah Hebert RN) Med Hx Heart Disease: No (06/09/2016 19:34:Amirah Hebert RN) Med Hx Autoimmune Disorder: No (06/09/2016 19:34:Amirah Hebert RN) Med Hx Kidney Disease/UTI: Yes (06/09/2016 19:34:Amirah Hebert RN) Med Hx Neurologic/Epilepsy: No (06/09/2016 19:34:Amirah Hebert RN) Med Hx Psychiatric Disorders: No (06/09/2016 19:34:Amirah Hebert RN) Med Hx Hepatitis/Liver Disease: No (06/09/2016 19:34:Amirah Hebert RN) Med Hx Varicosities/Phlebitis: No (06/09/2016 19:34:Amirah Hebert RN) Med Hx Thyroid Dysfunction: No (06/09/2016 19:34:Amirah Hebert RN) Med Hx Trauma/Violence: No (06/09/2016 19:34:Amirah Hebert RN) Med Hx Blood Transfusion: No (06/09/2016 19:34:Amirah Hebert RN) Med Hx Pulmonary (Asthma,TB): No (06/09/2016 19:34:Amirah Hebert RN) Med Hx Breast: No (06/09/2016 19:34:Amirah Hebert RN) Med Hx WET END TESTER Surgery: No (06/09/2016 19:34:Amirah Hebert RN) Med Hx Hospitalization/Surgery: No (06/09/2016 19:34:Amirah Hebert RN) Med Hx Anesthetic Complications: No (06/09/2016 19:34:Amirah Hebert RN) Med Hx Abnormal Pap Smear: No (06/09/2016 19:34:Amirah Hebert RN) Other Medical Diseases: No (06/09/2016 19:34:Amirah Hebert RN) Med Hx Significant Family Hx: No (06/09/2016 19:34:Amirah Hebert RN) Details of Med/Surg Hx: UTI: Frequent UTIs, Macrobid prophylactically after intercourse (06/09/2016 19:34:Amirah Hebert RN) INFECTIOUS HISTORY Inf Hx Gonorrhea: No (06/09/2016 19:34:Amirah Hebert RN) Inf Hx Chlamydia: No (06/09/2016 19:34:Amirah Hebert RN) Inf Hx Syphilis: No (06/09/2016 19:34:Amirah Hebert RN) Inf Hx HIV/AIDS: No (06/09/2016 19:34:Amirah Hebert RN) Inf Hx Human Papilloma Virus: No (06/09/2016 19:34:Amirah Hebert RN) Inf Hx Pt/Partner Genital Herpes: No (06/09/2016 19:34:Amirah Hebert RN) Inf Hx Tuberculosis/Exposure: No (06/09/2016 19:34:Amirah Hebert RN) Inf Hx Hepatitis B,C: No (06/09/2016 19:34:Amirah Hebert RN) Inf Hx Rash or Viral Illness: No (06/09/2016 19:34:Aimrah Hebert RN) GENETIC HISTORY Gen Hx Age >=35 at COLBY: No (06/09/2016 19:34:Amirah Hebert RN) Gen Hx Thalassemia: No (06/09/2016 19:34:Amirah Hebert RN) Gen Hx Congenital Heart Defect: No (06/09/2016 19:34:Amirha Hebert RN) Gen Hx Neural Tube Defect: No (06/09/2016 19:34:Amirah Hebert RN) Gen Hx Down's Syndrome: No (06/09/2016 19:34:Amirah Hebert RN) Gen Hx Virgil-Sachs: No (06/09/2016 19:34:Amirah Hebert RN) Gen Hx Mercy: No (06/09/2016 19:34:Amirah Hebert RN) Gen Hx Familial Dysautonomia: No (06/09/2016 19:34:Amirah Hebert RN) Gen Hx Sickle Cell Disease/Trait: No (06/09/2016 19:34:Amirah Hebert RN) Gen Hx Hemophilia/Blood Disorder: No (06/09/2016 19:34:Amirah Hebert RN) Gen Hx Muscular Dystrophy: No (06/09/2016 19:34:Amirah Hebert RN) Gen Hx Cystic Fibrosis: No (06/09/2016 19:34:Amirah Hebert RN) Gen Hx Huntingtons Chorea: No (06/09/2016 19:34:Amirah Hebert RN) Gen Hx Mental Retardation/Autism: No (06/09/2016 19:34:Amirah Hebert RN) Gen Hx Tested for Fragile X: No (06/09/2016 19:34:Amirah Hebert RN) Gen Hx Other Inher/Chromosomal: No (06/09/2016 19:34:Amirah Hebert RN) Gen Hx Maternal Metabolic DO: No (06/09/2016 19:34:Amirah Hebert RN) Gen Hx Pt Father or FOB Defect: No (06/09/2016 19:34:Amirah Hebert RN) Gen Hx Other Genetic History: No (06/09/2016 19:34:Amirah Hebert RN) Gen Hx Drugs/Meds since LMP: No (06/09/2016 19:34:Amirah Hebert RN)
== END 2016-06-10 21:05 | disposition home or self-care (01) ==
LOC: EDSTATUS 20:29 → LC 20:30
PROVIDERS: ATTEND Obstetrics & Gynecology
PROC: 4A1HXCZ Monitoring of Products of Conception, Cardiac Rate, External Approach (ICD-10-PCS; principal; 2016-06-10)
DX: O47.1 False labor at or after 37 completed weeks of gestation (principal); Z3A.38 38 weeks gestation of pregnancy
CPT/HCPCS: 59025; 96372; J0702

== ENCOUNTER 2016-07-18 20:21 | Inpatient (IN) | payer OTHER ==
[2016-07-18 20:59] LABS: APPEARANCE,URINE SLIGHTLY-CLOUDY; BILIRUBIN,URINE NEGATIVE (NEGATIVE); GLUCOSE, URINE 50 mg/dL (NEGATIVE); KETONES,URINE NEGATIVE (NEGATIVE); LEUKOCYTE ESTERASE,URINE MODERATE (NEGATIVE); NITRITE,URINE NEGATIVE (NEGATIVE); PROTEIN,URINE NEGATIVE (NEGATIVE); UROBILINOGEN,URINE NEGATIVE mg/dL (<2.0)
[2016-07-18 21:14] LABS: URINE BARBITURATES SCREEN NEGATIVE; URINE METHADONE SCREEN NEGATIVE; URINE OPIATES LOW NEGATIVE; URINE PHENCYCLIDINE SCREEN NEGATIVE
[2016-07-18] MEDS ORDERED: RINGERS SOLUTION,LACTATED 1,000 ML IV PRN (22:15)
[2016-07-18] MEDS ORDERED: LIDOCAINE 1% INJ-PF (10 MG/ML) 30 ML SDV ONE (22:28)
[2016-07-18] MEDS ORDERED: OXYTOCIN/NORMAL SALINE 20 UNIT/1,000 ML RTUINJ ONE (22:28)
[2016-07-18] MEDS ORDERED: MISOPROSTOL 0.2 MG TABLET ONE (22:28)
[2016-07-18 22:50] LABS: ABSOLUTE EOSINOPHILS # (AUTO) 0.1 10^3/uL (0.0-0.6); ABSOLUTE LYMPHOCYTES (AUTO) 2.1 10^3/uL (0.5-4.7); ABSOLUTE NEUT (AUTO) 9.8 10^3/uL (1.7-8.2); BASOPHILS % (AUTO) 0.2 % (0-2); EOSINOPHILS % (AUTO) 0.5 % (0-6); HEMATOCRIT 36.4 % (36.0-47.0); HEMOGLOBIN 12.3 g/dL (12.0-15.5); HGB HCT DIFFERENCE 0.5; LYMPHOCYTES % (AUTO) 15.9 % (13-45); MEAN CORPUSCULAR HEMOGLOBIN 29.7 pg (27.0-33.4); MEAN CORPUSCULAR HGB CONC 33.9 g/dL (32.0-36.0); MEAN CORPUSCULAR VOLUME 88 fl (80-97); RED BLOOD COUNT 4.15 10^6/uL (3.72-5.28); RED CELL DISTRIBUTION WIDTH 13.4 % (11.5-14.0); SEGMENTED NEUTROPHILS % (AUTO) 75.4 % (42-78); WHITE BLOOD COUNT 13.1 10^3/uL (4.0-10.5)
[2016-07-19] MEDS ORDERED: IBUPROFEN 800 MG TABLET ONE (02:26)
[2016-07-19] MEDS ORDERED: BENZOCAINE/MENTHOL AEROSOL SPRAY 56 ML ONE (02:26)
[2016-07-19] MEDS ORDERED: GLYCERIN/WITCH HAZEL LEAF 1 EACH MED..PAD TP PRN (03:28)
[2016-07-19] MEDS ORDERED: PSEUDOEPHEDRINE HCL 30 MG TABLET PO PRN (03:28)
[2016-07-19] MEDS ORDERED: MEASLES,MUMPS&RUBELLA VACC/PF 0.5 ML VIAL SUBCUT PRN (03:28)
[2016-07-19] MEDS ORDERED: BENZOCAINE/MENTHOL AEROSOL SPRAY 56 ML TOP PRN (03:28)
[2016-07-19] MEDS ORDERED: OXYTOCIN/NORMAL SALINE 1,000 ML IV PRN (03:28)
[2016-07-19] MEDS ORDERED: ACETAMINOPHEN 650 MG SUPP.RECT PR PRN (03:28)
[2016-07-19] MEDS ORDERED: ACETAMINOPHEN WITH CODEINE #3 TABLET PO PRN ×2 (03:28)
[2016-07-19] MEDS ORDERED: ZOLPIDEM TARTRATE 5 MG TABLET PO PRN (03:28)
[2016-07-19] MEDS ORDERED: PROMETHAZINE HCL 25 MG TABLET PO PRN (03:28)
[2016-07-19] MEDS ORDERED: DIBUCAINE 1% OINTMENT 28 GM TP PRN (03:28)
[2016-07-19] MEDS ORDERED: PROMETHAZINE HCL 25 MG SUPP.RECT PR PRN (03:28)
[2016-07-19] MEDS ORDERED: NA PHOS,M-B/NA PHOS,DI-BA (ADULT) 133 ML ENEMA PR PRN (03:28)
[2016-07-19] MEDS ORDERED: DIPHENHYDRAMINE HCL 25 MG CAPSULE PO PRN (03:28)
[2016-07-19] MEDS ORDERED: PROMETHAZINE HCL INJ 25 MG/1 ML VIAL IV PRN (03:28)
[2016-07-19] MEDS ORDERED: MAGNESIUM HYDROXIDE SUSP 30 ML UDCUP PO PRN (03:28)
[2016-07-19] MEDS ORDERED: DIPH/PERTUSS(ACELL)/TETANUS VAC/PF 0.5 ML SYR (>=10YO) IM PRN (03:28)
--- NOTE | 2016-07-19 03:50 | Delivery Summary ---
Del Sum A-C Datetime Report Generated by CPN: 07/19/2016 03:49 DELIVERY PERSONNEL DELIVERY PERSONNEL: [phone] Delivery Doctor:: Shantell Chopra MD Labor and Delivery Nurse:: Emerald Schulz RNlead etl developer Nurse:: Janet Baumann RN Record Filing Clerk/FISHING REEL ASSEMBLER: Isabel KleinVICKI butterfield MATERNAL INFORMATION Delivery Anesthesia: None Medications After Delivery: Pitocin Bolus-Please Comment; Pitocin Drip 20 Units/1000ml NSS Meds After Delivery Comment: Pitocin 20 units/liter IVF bolus x 1 liter Maternal Complications: None Provider Comments: VMI delivered in BHAVIN presentation. Tight nuchal cord delivered through then reduced after delivery of baby. Shoulders and body delivered w/o difficulty. Cord clamped and cut. Infant to maternal abdomen for NRP. No perineal lacerations. FF at U. Good hemostasis. Mother and baby stable upon provider leaving the room. Apgars 9/9. Weight pending. LABOR SUMMARY EDC: 07/24/2016 00:00 No. Babies in Womb: 1 Attempted: No Labor Anesthesia: None LABOR INFORMATION Reason for Induction: Not Applicable Onset of Labor: 07/18/2016 15:30 Complete Dilatation: 07/19/2016 02:03 Oxytocin: N/A Group B Beta Strep: Negative Antibiotics # of Doses: 0 Antibiotics Time of Last Dose: n/a Steroids Given: Full Course; > 24 Hours before Delivery Reason Steroids Not Administered: Not Applicable MEMBRANES Membranes Rupture Method: Spontaneous Rupture of Membranes: 07/19/2016 00:56 Length of Rupture (hr): 1.28 Amniotic Fluid Color: Clear Amniotic Fluid Amount: Moderate Amniotic Fluid Odor: Normal STAGES OF LABOR Stage 1 hr: 10 Stage 1 min: 33 Stage 2 hr: 0 Stage 2 min: 10 Stage 3 hr: 0 Stage 3 min: 4 Total Time in Labor hr: 10 Total Time in Labor min: 47 VAGINAL DELIVERY Episiotomy: None Laceration Extension: N/A Laceration Type: None Laceration Repair: Not Applicable Laceration Repair Note: No perineal lacerations. Sponge Count Correct: N/A Sharps Count Correct: N/A CSECTION DELIVERY Primary Indication: N/A Secondary Indication: N/A CSection Incidence: N/A Labor: N/A Elective: N/A CSection Incision: N/A BABY A INFORMATION Delivery Date/Time: 07/19/2016 02:13 Method of Delivery: Vaginal Born in Route : No : N/A Forceps: N/A Vacuum Extraction: N/A Shoulder Dystocia : No PRESENTATION/POSITION BABY A Presentation: Cephalic Cephalic Presentation: Vertex Vertex Position: Left Occipital Anterior Breech Presentation: N/A PLACENTA INFORMATION BABY A Placenta Delivery Time : 07/19/2016 02:17 Placenta Method of Delivery: Spontaneous Placenta Status: Delivered SCORES BABY A Heart Rate 1 min: >100 bpm Resp Effort 1 min: Good Cry Reflex Irritability 1 min: Cough or Sneeze or Pulls Away Muscle Tone 1 min: Active Motion Color 1 min: Body [place], Extremities Blue Resuscitation Effort 1 min: Tactile Stimulation SCORE 1 MIN: 9 Heart Rate 5 min: >100 bpm Resp Effort 5 min: Good Cry Reflex Irritability 5 min: Cough or Sneeze or Pulls Away Muscle Tone 5 min: Active Motion Color 5 min: Body [place], Extremities Blue SCORE 5 MIN: 9 INFANT INFORMATION BABY A Gestational Age at Delivery: 39.2 Gestational Status: Full Term- 39- 40.6 Weeks Infant Outcome : Liveborn Infant Condition : Stable Infant Sex: Male IDENTIFICATION BABY A Infant Verification Date/Time: 07/19/2016 02:35 ID Band Number: [id number] Mother's Name Verified: Yes RN Verifying Infant: K. Jeison, RN Additional Verifying Personnel: B. Caballero, RN WEIGHT/LENGTH BABY A Birthweight (gm): 3500 Weight (lb): 7 Weight (oz): 11 Infant Length (in): 21.25 Length (cm): 53.98 CORD INFORMATION BABY A No. Cord Vessels: 3 Nuchal Cord : Around Neck x1, Tight Cord Blood Taken: Yes-For Storage (Mom's Blood type +) Suction: Mouth; Nose ASSESSMENT BABY A Infant Complications: None Physical Findings at Delivery: Molding of the Head Respirations: Appears Normal Skin to Skin: Yes Skin to Skin Time (min): 75 Excel Vba Developer/ALS Called : No Care By: Jadiel Baumann, RN Transferred To: Remains with Mother BABY B INFORMATION : N/A SIGNATURES Signature: with User ID: [email or web address]
[2016-07-19] MEDS: IBUPROFEN 800 MG TABLET PO SCH ×3 (07:51→22:04)
--- NOTE | 2016-07-19 08:01 | L&D Discharge Summary ---
OB Discharge Summary Datetime Report Generated by CPN: 07/19/2016 08:01 DISCHARGE DIAGNOSIS Gestation: 39.2 Number of Babies in Womb: 1 Parity: 1
[2016-07-19] MEDS: SENNOSIDES/DOCUSATE 8.6-50 MG 1 EACH TABLET PO SCH (09:41)
[2016-07-19] MEDS: PRENATAL VITAMIN W-O CA NO5/FE FUMARATE/FA CAPSULE PO SCH (09:41)
[2016-07-19] MEDS: FAMOTIDINE 20 MG TABLET PO SCH ×2 (09:41→22:04)
[2016-07-19] MEDS: FERROUS SULFATE 325 MG TABLET PO SCH ×2 (09:41→17:14)
[2016-07-19] MEDS: DOCUSATE SODIUM 100 MG CAPSULE PO SCH ×2 (09:42→17:14)
--- NOTE | 2016-07-19 10:46 | L&D General Admission ---
General Admit Datetime Report Generated by CPN: 07/19/2016 10:45 INFORMATION Patient Age: 31 (07/18/2016 20:22:QS system process) EDC: 07/24/2016 00:00 (07/18/2016 20:26:Janet Baumann RN) EDC per Ultrasound: 07/25/2016 00:00 (07/18/2016 20:26:Janet Baumann RN) LMP: 07/24/2016 00:00 (07/18/2016 20:26:Janet Baumann RN) : 2 (07/18/2016 20:26:Janet Baumann RN) Para: 1 (07/18/2016 20:26:Janet Baumann RN) Term: 1 (07/18/2016 20:26:Janet Baumann RN) : 0 (07/18/2016 20:26:Janet Baumann RN) Spontaneous Abortions: 0 (07/18/2016 20:26:Janet Baumann RN) Induced Abortions: 0 (07/18/2016 20:26:Janet Baumann RN) Livin (07/18/2016 20:26:Janet Ring, RN) Cesareans: 0 (07/18/2016 20:26:Janet Ring, RN) VBACs: 0 (07/18/2016 20:26:Janet Ring, RN) Ectopic: 0 (07/18/2016 20:26:Ajnet Ring, RN) Multiple Births: 0 (07/18/2016 20:26:Janet Ring, RN) Baby, Number in Womb: 1 (07/18/2016 20:26:Janet Ring, RN) CARE Primary Woodworking Machine Offbearer: [facility] (07/18/2016 20:26:Janet Ring, RN) Adequate Care: Yes (07/18/2016 20:26:Janet Ring, RN) Height (in): 67 (07/19/2016 06:01:QS system process) Height (in): 67 (07/18/2016 21:38:QS system process) ALLERGIES Medication Allergy: No (07/18/2016 20:26:Janet Ring, RN) Medication Allergies: No Known Allergies (07/18/2016) (07/18/2016 21:37:QS system process) Medication Allergies: No Known Allergies (06/09/2016) (07/18/2016 20:22:QS system process) Latex Allergy: No Latex Allergies (07/18/2016 20:26:Janet Baumann RN) Food Allergies: None (07/18/2016 20:26:Stefani Caballero RN) Environmental Allergies: None (07/18/2016 20:26:Stefani Caballero RN) COMMUNICATION Primary Language: [place] (07/18/2016 20:26:Janet Baumann RN) Medical Tx Preferred Language: [place] (07/18/2016 20:26:Janet Baumann RN) [place] Communication Ability: Speaks [place]; Reads [place] (07/18/2016 20:26:Emerald Schulz RN) Communication Barrier(s): None (07/18/2016 20:26:Janet Baumann RN) DEMOGRAPHICS Address: [address] [place] [id number] (07/18/2016 20:22:QS system process) Zipcode: [address] (07/18/2016 20:22:QS system process) Home (07/18/2016 20:22:QS system process) Work (07/18/2016 20:22:QS system process) SSN: [id number] (07/18/2016 20:22:QS system process) Next of Kin Name: ADOLFO MILLS (07/18/2016 20:22:QS system process) Next of Kin (07/18/2016 20:22:QS system process) Next of Kin Relationship: MO (07/18/2016 20:22:QS system process) Date of : 1985 (07/18/2016 20:22:QS system process) Marital Status: (07/18/2016 20:22:QS system process) Sex: Female (07/18/2016 20:22:QS system process) Race: (07/18/2016 20:22:QS system process) Ethnicity: Non- or (07/18/2016 20:22:QS system process) Baptism: Orthodoxy (07/18/2016 20:22:QS system process) DRUG AND ALCOHOL USE Alcohol: No (07/18/2016 20:26:Emerald Schulz RN) Cigarettes: Never Smoker. [id number] (07/18/2016 20:26:Emerald Schulz RN) Marijuana: No (07/18/2016 20:26:Emerald Schulz RN) Cocaine: No (07/18/2016 20:26:Emerald Schulz RN) Other Illicit Drugs: No (07/18/2016 20:26:Emerald Schulz RN) VACCINE HISTORY Influenza Vaccine: Yes (07/18/2016 20:26:Emerald Schulz RN) Influenza Date: 2016 (07/18/2016 20:26:Emerald Schulz RN) Pneumococcal Vaccine: No (07/18/2016 20:26:Emerald Schulz RN) Tetanus Vaccine: Uncertain (07/18/2016 20:26:Emerald Schulz RN) Tdap Vaccine: Yes (07/18/2016 20:26:Janet Baumann RN) Tdap Date: 2016 (07/18/2016 20:26:Janet Baumann RN) Hepatitis B Vaccine: Yes (07/18/2016 20:26:Emerald Schulz RN) Tape Control Skin Or Spar Mill Operator: [facility] (07/18/2016 20:26:Emerald Schulz RN) Feeding Preference: Breast (07/18/2016 20:26:Emerald Schulz RN) Benefit of Breast Feed Discussed: Yes (07/18/2016 20:26:Emerald Schulz RN) Circumcision: Yes (07/18/2016 20:26:Emerald Schulz RN) Classes Attended: No (07/18/2016 20:26:Emerald Schulz RN) Tubal Ligation: No (07/18/2016 20:26:Emerald Schulz RN) Tubal Authorization Signed: N/A (07/18/2016 20:26:Emerald Schulz RN) Consent: N/A (07/18/2016 20:26:Emerald Schulz RN) Consent Signed: N/A (07/18/2016 20:26:Emerald Schulz RN) Pain Management Plans: Natural (07/18/2016 20:26:Emerald Schulz RN) Plans for Labor and Delivery: Plan (07/18/2016 20:26:Emerald Schulz RN) Other Labor and Delivery Plans: skin to skin, no pacifiers, delayed cord clamping (07/18/2016 20:26:Emerald Schulz RN) Support Person: Tye (07/18/2016 20:26:Emerald Schulz RN) Support Person Relationship: (07/18/2016 20:26:Emerald Schulz RN) Cultural/Spritual Practice: No (07/18/2016 20:26:Emerald Schulz RN) Spir/Cult Dietary Needs: No (07/18/2016 20:26:Emerald Schulz RN) LIVING SITUATION/DISCHARGE PLAN Living Arrangements: House (07/18/2016 20:26:Emerald Schulz RN) Adequate Access to:: Electric; Heat; Refrigeration; Plumbing/Running water; Phone; Transportation (07/18/2016 20:26:Emerald Schulz RN) WIC Program: No (07/18/2016 20:26:Emerald Schulz RN) Discharge Spool Carrier Person: Tye (07/18/2016 20:26:Emerald Schulz RN) Person to Help after Discharge: Tye (07/18/2016 20:26:Emerald Schulz RN) Currently Using Commun Resources: No (07/18/2016 20:26:Emerald Schulz RN) Outside Agency/Medical Center Director: No (07/18/2016 20:26:Emerald Schulz RN) Car Seat for Discharge: Yes (07/18/2016 20:26:Emerald Schulz RN) Adoption Requested: No (07/18/2016 20:26:Emerald Schulz RN) Pt Contact w/infant Post : N/A (07/18/2016 20:26:Emerald Schulz RN) LABS Blood Type: A Positive (07/18/2016 20:26:Janet Baumann RN) Antibody Screen: Negative (07/18/2016 20:26:Janet Baumann RN) Rho(G) this : Not Applicable (07/18/2016 20:26:Janet Baumann RN) Hemoglobin: 12.3 (07/18/2016 22:27:QS system process) Hematocrit: 36.4 (07/18/2016 22:27:QS system process) MCV: 88 (07/18/2016 22:27:QS system process) Group Beta Strep: Negative (07/18/2016 20:26:Janet Baumann RN) Gonorrhea: Negative (07/18/2016 20:26:Janet Baumann RN) Chlamydia: Negative (07/18/2016 20:26:Janet Baumann RN) RPR/VDRL: Nonreactive (07/18/2016 20:26:Janet Baumann RN) HIV Results: Negative (07/18/2016 20:26:Janet Bamuann RN) Hepatitis B: Negative (07/18/2016 20:26:Janet Baumann RN) Rubella: Immune (07/18/2016 20:26:Janet Baumann RN) OB/PREVIOUS HISTORY LMP: 07/24/2016 00:00 (07/18/2016 20:26:Janet Baumann RN) Previous Procedures: Ultrasound; NST; Tocolysis (07/18/2016 20:26:Emerald Schulz RN) Current Procedures: Ultrasound; NST (07/18/2016 20:26:Emerald Schulz RN) History of Previous : No (07/18/2016 20:26:Janet Baumann RN) History of Gestational Diabetes: No (07/18/2016 20:26:Emerald Schulz RN) History of PIH: No (07/18/2016 20:26:Emerald Schulz RN) History of Incompetent Cervix: No (07/18/2016 20:26:Emerald Schulz RN) History of Placenta Previa/Abrup: No (07/18/2016 20:26:Emerald Schulz RN) History of Macrosomia: No (07/18/2016 20:26:Emerald Schulz RN) History of IUGR: No (07/18/2016 20:26:Emerald Schulz RN) History of Hemorrhage: No (07/18/2016 20:26:Emerald Schulz RN) History of Loss/Stillborn: No (07/18/2016 20:26:Janet Baumann RN) History of : No (07/18/2016 20:26:Janet Baumann RN) History of D (Rh) Sensitization: No (07/18/2016 20:26:Janet Baumann RN) History Recurrent Loss/Stillborn: No (07/18/2016 20:26:Janet Baumann RN) History Depression/PP Depression: No (07/18/2016 20:26:Emerald Schulz RN) History of Uterine Anomaly/DIVYA: No (07/18/2016 20:26:Janet Baumann RN) History of Infertility: No (07/18/2016 20:26:Emerald Schulz RN) History of ART Treatment: No (07/18/2016 20:26:Emerald Schulz RN) History of DIVYA: No (07/18/2016 20:26:Janet Baumann RN) Comments Obstetrical History: G1: PTL; , delivered at 41.1, girl, delivered naturally G2: current, ptl received steriods only this time (07/18/2016 20:26:Emerald Schulz RN) MEDICAL HISTORY Med Hx Diabetes: No (07/18/2016 20:26:Emerald Schulz RN) Med Hx Hypertension: No (07/18/2016 20:26:Emerald Schulz RN) Med Hx Heart Disease: No (07/18/2016 20:26:Emerald Schulz RN) Med Hx Autoimmune Disorder: No (07/18/2016 20:26:Emerald Schulz RN) Med Hx Kidney Disease/UTI: Yes (07/18/2016 20:26:Janet Baumann RN) Med Hx Neurologic/Epilepsy: No (07/18/2016 20:26:Emerald Schulz RN) Med Hx Psychiatric Disorders: No (07/18/2016 20:26:Emerald Schulz RN) Med Hx Hepatitis/Liver Disease: No (07/18/2016 20:26:Emerald Schulz RN) Med Hx Varicosities/Phlebitis: No (07/18/2016 20:26:Emerald Schulz RN) Med Hx Thyroid Dysfunction: No (07/18/2016 20:26:Emerald Schulz RN) Med Hx Trauma/Violence: No (07/18/2016 20:26:Emerald Schulz RN) Med Hx Blood Transfusion: No (07/18/2016 20:26:Emerald Schulz RN) Med Hx Pulmonary (Asthma,TB): No (07/18/2016 20:26:Emerald Schulz RN) Med Hx Breast: No (07/18/2016 20:26:Emerald Schulz RN) Med Hx BILL PEDDLER Surgery: No (07/18/2016 20:26:Emerald Schulz RN) Med Hx Hospitalization/Surgery: Yes (07/18/2016 20:26:Janet Baumann RN) Med Hx Anesthetic Complications: No (07/18/2016 20:26:Emerald Schulz RN) Med Hx Abnormal Pap Smear: No (07/18/2016 20:26:Emerald Schulz RN) Other Medical Diseases: No (07/18/2016 20:26:Emerald Schulz RN) Med Hx Significant Family Hx: No (07/18/2016 20:26:Emerald Schulz RN) Details of Med/Surg Hx: UTIs prior to , labor and delivery of first child, patient had stress per provider on 07/15/16 and suggested to check re ppdepression (07/18/2016 20:26:Emerald Schulz RN) INFECTIOUS HISTORY Inf Hx Gonorrhea: No (07/18/2016 20:26:Emerald Schulz RN) Inf Hx Chlamydia: No (07/18/2016 20:26:Emerald Schulz RN) Inf Hx Syphilis: No (07/18/2016 20:26:Emerald Schulz RN) Inf Hx HIV/AIDS: No (07/18/2016 20:26:Emerald Schulz RN) Inf Hx Human Papilloma Virus: No (07/18/2016 20:26:Emerald Schulz RN) Inf Hx Pt/Partner Genital Herpes: No (07/18/2016 20:26:Emerald Schulz RN) Inf Hx Tuberculosis/Exposure: No (07/18/2016 20:26:Eemrald Schulz RN) Inf Hx Hepatitis B,C: No (07/18/2016 20:26:Emerald Schulz RN) Inf Hx Rash or Viral Illness: No (07/18/2016 20:26:Emerald Schulz RN) GENETIC HISTORY Gen Hx Age >=35 at COLBY: No (07/18/2016 20:26:Emerald Schulz RN) Gen Hx Thalassemia: No (07/18/2016 20:26:Emerald Schulz RN) Gen Hx Congenital Heart Defect: No (07/18/2016 20:26:Emerald Schulz RN) Gen Hx Neural Tube Defect: No (07/18/2016 20:26:Emerald Schulz RN) Gen Hx Down's Syndrome: No (07/18/2016 20:26:Emerald Schulz RN) Gen Hx Virgil-Sachs: No (07/18/2016 20:26:Emerald Schulz RN) Gen Hx Mercy: No (07/18/2016 20:26:Emerald Schulz RN) Gen Hx Familial Dysautonomia: No (07/18/2016 20:26:Emerald Schulz RN) Gen Hx Sickle Cell Disease/Trait: No (07/18/2016 20:26:Emerald Schulz RN) Gen Hx Hemophilia/Blood Disorder: No (07/18/2016 20:26:Emerald Schulz RN) Gen Hx Muscular Dystrophy: No (07/18/2016 20:26:Emerald Schulz RN) Gen Hx Cystic Fibrosis: No (07/18/2016 20:26:Emerald Schulz RN) Gen Hx Huntingtons Chorea: No (07/18/2016 20:26:Emerald Schulz RN) Gen Hx Mental Retardation/Autism: No (07/18/2016 20:26:Emerald Schulz RN) Gen Hx Tested for Fragile X: No (07/18/2016 20:26:Emerald Schulz RN) Gen Hx Other Inher/Chromosomal: No (07/18/2016 20:26:Emerald Schulz RN) Gen Hx Maternal Metabolic DO: No (07/18/2016 20:26:Emerald Schulz RN) Gen Hx Pt Father or FOB Defect: No (07/18/2016 20:26:Emerald Schulz RN) Gen Hx Other Genetic History: No (07/18/2016 20:26:Emerald Schulz RN) Gen Hx Drugs/Meds since LMP: Yes (07/18/2016 20:26:Janet Baumann RN) Gen Hx Medications: PNV, Macrobid, Benadryl (07/18/2016 20:26:Emerald Schulz RN)
--- NOTE | 2016-07-19 10:46 | L&D Admission Assessment ---
LD ADM ASMT Datetime Report Generated by CPN: 07/19/2016 10:45 PATIENT ASSESSMENT Assessment Type: Admission Assessment (07/18/2016 22:15:Emerald Haywooddwayne, RN) Assessment Type: Triage (07/18/2016 20:56:Emerald Schulz, RN) WEIGHT Weight (lb): 163 (07/19/2016 06:01:QS system process) Weight (lb): 163 (07/18/2016 21:38:QS system process) Weight (kg): 74.1 (07/19/2016 06:01:QS system process) Weight (kg): 74.1 (07/18/2016 21:38:QS system process) BMI: 25.5 (07/19/2016 06:01:QS system process) ONSET OF LABOR Onset of Labor: 07/18/2016 15:30 (07/18/2016 20:26:Emerald Schulz RN) PAIN Pain Scale: 1 (07/19/2016 05:42:Emerald Schulz RN) Pain Scale: 2 (07/19/2016 02:35:Emerald Schulz RN) Pain Scale: 5 (07/19/2016 02:00:Emerald Schulz RN) Pain Scale: 4 (07/19/2016 00:38:Emerald Schulz RN) Pain Scale: 3 (07/18/2016 22:11:Emerald Schulz RN) Pain Scale: 3 (07/18/2016 20:56:Emerald Schulz RN) Pain Presence: Constant (07/19/2016 05:42:Emerald Schulz RN) Pain Presence: Constant (07/19/2016 02:35:Emerald Schulz RN) Pain Presence: Intermittent (07/19/2016 02:00:Emerald Schulz RN) Pain Presence: Intermittent (07/19/2016 00:38:Emerald Schulz RN) Pain Presence: Intermittent (07/18/2016 22:11:Emerald Schulz RN) Pain Presence: Intermittent (07/18/2016 20:56:Emerald Schulz RN) Pain Type: Ache (07/19/2016 05:42:Emerald Schulz RN) Pain Type: Ache (07/19/2016 02:35:Emerald Schulz RN) Pain Type: Contraction (07/19/2016 02:00:Emerald Schulz RN) Pain Type: Contraction (07/19/2016 00:38:Emerald Schulz RN) Pain Type: Contraction (07/18/2016 22:11:Emerald Schulz RN) Pain Type: Contraction (07/18/2016 20:56:Emerald Schulz RN) Pain Location: Perineum (07/19/2016 05:42:Emerald Schulz RN) Pain Location: Abdomen; Perineum (07/19/2016 02:35:Emerald Schulz RN) Pain Location: Abdomen; Back; Perineum (07/19/2016 02:00:Emerald Schulz RN) Pain Location: Abdomen; Back (07/19/2016 00:38:Emerald Schulz RN) Pain Location: Abdomen; Back (07/18/2016 22:11:Emerald Schulz RN) Pain Location: Abdomen; Back (07/18/2016 20:56:Emerald Schulz RN) Pain Related to Contraction: Yes (07/18/2016 20:56:Emerald Schulz RN) CONTRACTIONS Frequency (min): 2-3 (07/19/2016 02:00:Stefani Caballero, RN) Frequency (min): 2-3 (07/19/2016 01:45:Stefani Caballero, RN) Frequency (min): 2-2.5 (07/19/2016 01:30:Stefani Caballero, RN) Frequency (min): 2-4 (07/19/2016 01:15:Stefani Caballero, RN) Frequency (min): 2-3 (07/19/2016 01:00:Stefani Caballero, RN) Frequency (min): 3-4 (07/19/2016 00:45:Emerald Kossmann, RN) Frequency (min): 2-5 (07/19/2016 00:30:Emerald Kossmann, RN) Frequency (min): 2-4 (07/19/2016 00:15:Emerald Kossmann, RN) Frequency (min): irregular (07/19/2016 00:00:Emerald Kossmann, RN) Frequency (min): 2.5-4 (07/18/2016 23:45:Emerald Kossmann, RN) Frequency (min): irregular (07/18/2016 23:30:Emerald Kossmann, RN) Frequency (min): 3-5 (07/18/2016 22:34:Emerald Kossmann, RN) Frequency (min): 2-8 (07/18/2016 21:23:Emerald Kossmann, RN) Frequency (min): 4-5 (07/18/2016 20:56:Emerald Kossmann, RN) Duration (sec): 80-160 (07/19/2016 02:00:Stefani Caballero, RN) Duration (sec): 60-120 (07/19/2016 01:45:Stefani Caballero, RN) Duration (sec): 50-140 (07/19/2016 01:30:Stefani Caballero, RN) Duration (sec): 90-180 (07/19/2016 01:15:Stefani Caballero, RN) Duration (sec): 90-110 (07/19/2016 01:00:Stefani Caballero, RN) Duration (sec): 40-100 (07/19/2016 00:45:Emearld Schulz RN) Duration (sec): 40-100 (07/19/2016 00:30:Emerald Schulz RN) Duration (sec): 30-80 (07/19/2016 00:15:Emerald Schulz RN) Duration (sec): 40-80 (07/19/2016 00:00:Emerald Schulz RN) Duration (sec): 40-70 (07/18/2016 23:45:Emerald Schulz RN) Duration (sec): 50-90 (07/18/2016 23:30:Emerald Schulz RN) Duration (sec): 40-130 (07/18/2016 22:34:Emerald Schulz RN) Duration (sec): 40-130 (07/18/2016 21:23:Emerald Schulz RN) Quality: Strong (07/19/2016 02:00:Stefani Caballero RN) Quality: Strong (07/19/2016 01:45:Stefani Caballero RN) Quality: Moderate to Strong (07/19/2016 01:30:Stefani Caballero RN) Quality: Moderate to Strong (07/19/2016 01:15:Stefani Caballero RN) Quality: Moderate to Strong (07/19/2016 01:00:Stefani Caballeor RN) Quality: Moderate (07/19/2016 00:45:Emerald Schulz RN) Quality: Moderate (07/19/2016 00:30:Emeradl Schulz RN) Quality: Moderate (07/19/2016 00:15:Emerald Schulz RN) Quality: Moderate (07/19/2016 00:00:Emerald Schulz RN) Quality: Moderate (07/18/2016 23:45:Emerald Schulz RN) Quality: Moderate (07/18/2016 23:30:Emerald Schulz RN) Quality: Moderate (07/18/2016 22:35:Emerald Schulz RN) Quality: Mild/Moderate (07/18/2016 21:23:Emerald Schulz, RN) Pattern: Normal: <= 5 Contractions in 10 Minutes (07/19/2016 02:00:Stefani Caballero RN) Pattern: Normal: <= 5 Contractions in 10 Minutes (07/19/2016 01:45:Stefani Caballero RN) Pattern: Normal: <= 5 Contractions in 10 Minutes (07/19/2016 01:30:Stefani Caballero RN) Pattern: Normal: <= 5 Contractions in 10 Minutes (07/19/2016 01:15:Stefani Caballero RN) Pattern: Normal: <= 5 Contractions in 10 Minutes (07/19/2016 01:00:Stefani Caballero RN) Resting Tone [place]: Relaxed (07/19/2016 02:00:Stefani Caballero RN) Resting Tone [place]: Relaxed (07/19/2016 01:45:Stefani Caballero RN) Resting Tone [place]: Relaxed (07/19/2016 01:30:Stefani Caballero RN) Resting Tone [place]: Relaxed (07/19/2016 01:15:Stefani Caballero RN) Resting Tone [place]: Relaxed (07/19/2016 01:00:Stefani Caballero RN) Resting Tone [place]: Relaxed (07/19/2016 00:45:Emerald Schulz RN) Resting Tone [place]: Relaxed (07/19/2016 00:30:Emerald Schulz RN) Resting Tone [place]: Relaxed (07/19/2016 00:15:Emerald Schulz RN) Resting Tone [place]: Relaxed (07/19/2016 00:00:Emerald Schulz RN) Resting Tone [place]: Relaxed (07/18/2016 23:45:Emerald Schulz RN) Resting Tone [place]: Relaxed (07/18/2016 23:30:Emerald Schulz RN) Resting Tone [place]: Relaxed (07/18/2016 22:35:Emerald Schulz RN) Resting Tone [place]: Relaxed (07/18/2016 21:23:Emerald Schulz RN) VAGINAL EXAM Dilatation (cm): 10.0 (07/19/2016 02:03:Emerald Schulz RN) Dilatation (cm): 8.5 (07/19/2016 01:55:Emerald Schulz RN) Dilatation (cm): 8.0 (07/19/2016 01:07:Emerald Schulz RN) Dilatation (cm): 8.0 (07/19/2016 00:56:Emerald Schulz RN) Dilatation (cm): 7.5 (07/19/2016 00:40:Emerald Schulz RN) Dilatation (cm): 6.5 (07/18/2016 23:35:Emerald Schulz RN) Dilatation (cm): 5.5 (07/18/2016 22:09:Emerald Schulz RN) Dilatation (cm): 4.0 (07/18/2016 20:44:Emerald Schulz RN) Effacement (%): 90 (07/19/2016 01:55:Emerald Schulz RN) Effacement (%): 90 (07/19/2016 01:07:Emerald Schulz RN) Effacement (%): 90 (07/19/2016 00:56:Emerald Schulz RN) Effacement (%): 90 (07/19/2016 00:40:Emerald Schulz RN) Effacement (%): 90 (07/18/2016 23:35:Emerald Schulz RN) Effacement (%): 80 (07/18/2016 22:09:Emerald Schulz RN) Effacement (%): 80 (07/18/2016 20:44:Emerald Schulz RN) Station: 1 (07/19/2016 01:55:Emerald Schulz RN) Station: 0 (07/19/2016 01:07:Emerald Schulz RN) Station: -1 (07/19/2016 00:56:Emerald Schulz RN) Station: -1 (07/19/2016 00:40:Emerald Schulz RN) Station: -1 (07/18/2016 23:35:Emerald Schulz RN) Station: -1 (Annotations: -1 to -2) (07/18/2016 22:09:Emerald Schulz RN) Station: -1 (Annotations: -1 to -2 ) (07/18/2016 20:44:Emerald Schulz RN) Membranes Status: Ruptured (07/19/2016 00:56:Emerald Schulz RN) Membranes Rupture D/ (07/19/2016 00:56:Emerald Schulz RN) Membranes Rupture D/ (07/18/2016 20:26:Steffanie Mchugh RN) ROM Method: Spontaneous (07/19/2016 00:56:Emerald Schulz RN) Amniotic Fluid Color: Clear (07/19/2016 00:56:Emerald Schulz RN) Amniotic Fluid Amount: Moderate (07/19/2016 00:56:Emerald Schulz RN) Amniotic Fluid Odor: Normal (07/19/2016 00:56:Emerald Schulz RN) NEURO Level of Consciousness: Fully Conscious (07/18/2016 22:15:Emerald Schulz RN) Level of Consciousness: Fully Conscious (07/18/2016 20:56:Emerald Schulz RN) DTR's/Clonus: DTRs 2+; No Clonus (07/18/2016 22:15:Emerald Schulz RN) DTR's/Clonus: DTRs 2+; No Clonus (07/18/2016 20:56:Emerald Schulz RN) Headache: Denies (07/18/2016 22:15:Emerald Schulz RN) Headache: Denies (07/18/2016 20:56:Emerald Schulz RN) Dizziness: No (07/18/2016 22:15:Emerald Schulz RN) Dizziness: No (07/18/2016 20:56:Emerald Schulz RN) Blurred Vision: No (07/18/2016 22:15:Emerald Schulz RN) Blurred Vision: No (07/18/2016 20:56:Emerald Schulz RN) Extremity Numbness/Tingling : None (07/18/2016 22:15:Emerald Schulz RN) Extremity Numbness/Tingling : None (07/18/2016 20:56:Emerald Schulz RN) Extremity Movement: Full Range of Motion (07/18/2016 22:15:Emerald Schulz RN) Extremity Movement: Full Range of Motion (07/18/2016 20:56:Emerald Schulz RN) CARDIOVASCULAR Heart Rhythm: Regular (Annotations: normal s1s2 on auscultation with no evidence of murmur ) (07/18/2016 22:15:Emerald Schulz RN) Heart Rhythm: Regular (Annotations: normal s1s2 on auscultation with no evidence of murmur ) (07/18/2016 20:56:Emerald Schulz RN) Nailbeds: [place] (07/18/2016 22:15:Emerald Schulz RN) Nailbeds: [place] (07/18/2016 20:56:Emerald Schulz RN) Capillary Refill: Less than 3 Seconds (07/18/2016 22:15:Emerald Schulz RN) Capillary Refill: Less than 3 Seconds (07/18/2016 20:56:Emerald Schulz RN) Lower Extremities Edema: None (07/18/2016 22:15:Emerald Schulz RN) Lower Extremities Edema: None (07/18/2016 20:56:Emerald Schulz RN) Lower Extremities Edema Degree: None (07/18/2016 22:15:Emerald Schulz RN) Lower Extremities Edema Degree: None (07/18/2016 20:56:Emerald Schulz RN) Upper Extremities Edema: None (07/18/2016 22:15:Emerald Schulz RN) Upper Extremities Edema: None (07/18/2016 20:56:Emerald Schulz RN) Upper Extremities Edema Degree: None (07/18/2016 22:15:Emerald Schulz RN) Upper Extremities Edema Degree: None (07/18/2016 20:56:Emerald Schulz RN) Facial Edema: None (07/18/2016 22:15:Emerald Schulz RN) Facial Edema: None (07/18/2016 20:56:Emerald Schulz RN) Jose's Sign Left Leg: Negative (07/18/2016 22:15:Emerald Schulz RN) Jose's Sign Left Leg: Negative (07/18/2016 20:56:Emerald Schulz RN) Jose's Sign Right Leg: Negative (07/18/2016 22:15:Emerald Schulz RN) Jose's Sign Right Leg: Negative (07/18/2016 20:56:Emerald Schulz RN) DVT RISK ASSESSMENT DVT Risk Age: Age less than 41 years (07/18/2016 22:15:Emerald Schulz RN) DVT Risk Age: Age less than 41 years (07/18/2016 20:56:Emerald Schulz RN) DVT Risk BMI: BMI<31 (07/18/2016 22:15:Emerald Schulz RN) DVT Risk BMI: BMI<31 (07/18/2016 20:56:Emerald Schulz RN) DVT Risk Surgery: None Applicable (07/18/2016 22:15:Emerald Schulz RN) DVT Risk Surgery: None Applicable (07/18/2016 20:56:Emerald Schulz RN) DVT Risk Other: Women Only- or (<1 month) (07/18/2016 22:15:Emerald Schulz RN) DVT Risk Other: Women Only- or (<1 month) (07/18/2016 20:56:Emerald Schulz RN) DVT Risk Total: 1 (07/18/2016 22:15:QS system process) DVT Risk Total: 1 (07/18/2016 20:56:QS system process) DVT Risk Text: Low Risk (<10%) No specific measures, early ambulation (07/18/2016 22:15:QS system process) DVT Risk Text: Low Risk (<10%) No specific measures, early ambulation (07/18/2016 20:56:QS system process) RESPIRATORY Respiratory Effort: Unlabored; Regular Rhythm; Equal Expansion (07/18/2016 22:15:Emerald Schulz RN) Respiratory Effort: Unlabored; Regular Rhythm; Equal Expansion (07/18/2016 20:56:Emerald Schulz RN) Breath Sounds, Left: Clear and Equal (07/18/2016 22:15:Emerald Schulz RN) Breath Sounds, Left: Clear and Equal (07/18/2016 20:56:Emerald Schulz RN) Breath Sounds, Right: Clear and Equal (07/18/2016 22:15:Emerald Schulz RN) Breath Sounds, Right: Clear and Equal (07/18/2016 20:56:Emerald Schulz RN) Cough Productivity: None (07/18/2016 22:15:Emerald Schulz RN) Cough Productivity: None (07/18/2016 20:56:Emerald Schulz RN) GASTROINTESTINAL Nausea/Vomiting: Denies (07/18/2016 22:15:Emerald Schulz RN) Nausea/Vomiting: Denies (07/18/2016 20:56:Emerald Schulz RN) Bowel Sounds: Normoactive; All Quadrants (07/18/2016 22:15:Emerald Schulz RN) Bowel Sounds: Normoactive; All Quadrants (07/18/2016 20:56:Emerald Schulz RN) RUQ Epigastric Pain: Denies (07/18/2016 22:15:Emerald Schulz RN) RUQ Epigastric Pain: Denies (07/18/2016 20:56:Emerald Schulz RN) Bowel Patterns: Soft, Formed Stool (07/18/2016 22:15:Emerald Schulz RN) Bowel Patterns: Soft, Formed Stool (07/18/2016 20:56:Emerald Schulz RN) Hemorrhoids: Present (07/18/2016 22:15:Emerald Schulz RN) Hemorrhoids: Present (07/18/2016 20:56:Emerald Schulz RN) Diet Type: Regular diet (07/18/2016 22:15:Emerald Schulz RN) Diet Type: Regular diet (07/18/2016 20:56:Emerald Schulz RN) Last Meal: 07/18/2016 18:00 (07/18/2016 20:56:Emerald Schulz RN) GENITOURINARY Bladder: Nondistended (07/18/2016 22:15:Emerald Schulz RN) Bladder: Nondistended (07/18/2016 20:56:Emerald Schulz RN) Frequency of Urination: No (07/18/2016 22:15:Emerald Schulz RN) Frequency of Urination: No (07/18/2016 20:56:Emerald Schulz RN) Urination Burning: No (07/18/2016 22:15:Emerald Schulz RN) Urination Burning: No (07/18/2016 20:56:Emerald Schulz RN) CVA Tenderness: No (07/18/2016 22:15:Emerald Schulz RN) CVA Tenderness: No (07/18/2016 20:56:Emerald Schulz RN) Vaginal Bleeding: None (07/18/2016 20:56:Emerald Schulz RN) Vaginal Discharge Amount: Small (07/18/2016 22:15:Emerald Schulz RN) Vaginal Discharge Amount: Small (07/18/2016 20:56:Emerald Schulz RN) Vaginal Discharge Color: White (07/18/2016 22:15:Emerald Schulz RN) Vaginal Discharge Color: White (07/18/2016 20:56:Emerald Schulz RN) Vaginal Discharge Odor: Non-Odorous (07/18/2016 22:15:Emerald Schulz RN) Vaginal Discharge Odor: Non-Odorous (07/18/2016 20:56:Emerald Schulz RN) Vaginal Discharge Character: Thick (07/18/2016 22:15:Emerald Schulz RN) Vaginal Discharge Character: Thick (07/18/2016 20:56:Emerald Schulz RN) INTEGUMENTARY Skin Color: Normal for Race (07/18/2016 22:15:Emerald Schulz RN) Skin Color: Normal for Race (07/18/2016 20:56:Emerald Schulz RN) Skin Temperature: Warm (07/18/2016 22:15:Emerald Schulz RN) Skin Temperature: Warm (07/18/2016 20:56:Emerald Schulz RN) Skin Moisture: Dry (07/18/2016 22:15:Emerald Schulz RN) Skin Moisture: Dry (07/18/2016 20:56:Emerald Schulz RN) Surgical Scars: none (07/18/2016 22:15:Emerald Schulz RN) Surgical Scars: none (07/18/2016 20:56:Emerald Schulz RN) Body Piercings/Tattoos: ears pierced (07/18/2016 22:15:Emerald Schulz RN) Body Piercings/Tattoos: ears pierced (07/18/2016 20:56:Emerald Schulz RN) KODAK SKIN ASSESSMENT Kodak Scale Sensory Perception: No Impairment- Responds to verbal commands. Has no sensory deficit which would limit ability to feel or voice pain or discomfort (07/18/2016 22:15:Emerald Schulz RN) Kodak Scale Sensory Perception: No Impairment- Responds to verbal commands. Has no sensory deficit which would limit ability to feel or voice pain or discomfort (07/18/2016 20:56:Emerald Schulz RN) Kodak Scale Moisture: Rarely Moist- Skin is usually dry. Linen only requires changing at routine intervals (07/18/2016 22:15:Emerald Schulz RN) Kodak Scale Moisture: Rarely Moist- Skin is usually dry. Linen only requires changing at routine intervals (07/18/2016 20:56:Emerald Schulz RN) Kodak Scale Activity: Walks Frequently- Walks outside the room at least twice a day and inside room at least every 2 hours during the day. (07/18/2016 22:15:Emerald Schulz RN) Kodak Scale Activity: Walks Frequently- Walks outside the room at least twice a day and inside room at least every 2 hours during the day. (07/18/2016 20:56:Emerald Schulz RN) Kodak Scale Mobility: No Limitations- Makes major and frequent changes in position without assistance (07/18/2016 22:15:Emerald Schulz RN) Kodak Scale Mobility: No Limitations- Makes major and frequent changes in position without assistance (07/18/2016 20:56:Emerald Schulz RN) Kodak Scale Nutrition: Excellent- Eats most of every meal. Never refuses a meal. Usually eats a total of 4 or more servings of meat and dairy products. Occasionally eats between meals. Does not require supplementation (07/18/2016 22:15:Emerald Schulz RN) Kodak Scale Nutrition: Excellent- Eats most of every meal. Never refuses a meal. Usually eats a total of 4 or more servings of meat and dairy products. Occasionally eats between meals. Does not require supplementation (07/18/2016 20:56:Emerald Schulz RN) Kodak Scale Friction and Shear: No Apparent Problem- Moves in bed and in chair independently and has sufficient muscle strength to lift up completely during move. Maintains good position in bed or chair at all times (07/18/2016 22:15:Emerald Schulz RN) Kodak Scale Friction and Shear: No Apparent Problem- Moves in bed and in chair independently and has sufficient muscle strength to lift up completely during move. Maintains good position in bed or chair at all times (07/18/2016 20:56:Emerald Schulz RN) Kodak Scale Total: 23 (07/18/2016 22:15:QS system process) Kodak Scale Total: 23 (07/18/2016 20:56:QS system process) Kodak Scale Risk: No Risk of Pressure Ulcer Noted at this Time (07/18/2016 22:15:QS system process) Kodak Scale Risk: No Risk of Pressure Ulcer Noted at this Time (07/18/2016 20:56:QS system process) SUPPORT Family Support: Significant Other supportive, at bedside frequently (07/18/2016 22:15:Emerald Schulz RN) Family Support: Significant Other supportive, at bedside frequently (07/18/2016 20:56:Emerald Schulz RN) Emotional State: Calm/Relaxed (07/18/2016 22:15:Emerald Schulz RN) Emotional State: Calm/Relaxed (07/18/2016 20:56:Emerald Schulz RN) SAFETY Call [place] Within Reach: Yes (07/18/2016 22:15:Emerald Schulz RN) Call [place] Within Reach: Yes (07/18/2016 20:56:Emerald Schulz RN) Side Rails Up: Yes (07/18/2016 22:15:Emerald Schulz RN) Side Rails Up: Yes (07/18/2016 20:56:Emerald Schulz RN) Bed Wheels Locked: Yes (07/18/2016 22:15:Emerald Schulz RN) Bed Wheels Locked: Yes (07/18/2016 20:56:Emerald Schulz RN) Arm Bands Present: Yes (07/18/2016 22:15:Emerald Schulz RN) Arm Bands Present: Yes (07/18/2016 20:56:Emerald Schulz RN) Isolation: [place] (07/18/2016 22:15:Emerald Schulz RN) Isolation: [place] (07/18/2016 20:56:Emerald Shculz RN) FALL SCREEN Fall Risk History of Falling: (0) No (07/18/2016 22:15:Emerald Schulz RN) Fall Risk History of Falling: (0) No (07/18/2016 20:56:Emerald Schulz RN) Fall Risk Secondary Diagnosis: (0) No (07/18/2016 22:15:Emerald Schulz RN) Fall Risk Secondary Diagnosis: (0) No (07/18/2016 20:56:Emerald Schulz RN) Fall Risk Ambulatory Aid: (0) None/Bedrest/Wheelchair/Nurse Assist (07/18/2016 22:15:Emerald Schulz RN) Fall Risk Ambulatory Aid: (0) None/Bedrest/Wheelchair/Nurse Assist (07/18/2016 20:56:Emerald Schulz RN) Fall Risk IV Therapy: (20) Yes (07/18/2016 22:15:Emerald Schulz RN) Fall Risk IV Therapy: (0) No (07/18/2016 20:56:Emerald Schulz RN) Fall Risk Gait: (0) Normal/Bedrest/Immobile (07/18/2016 22:15:Emerald Schulz RN) Fall Risk Gait: (0) Normal/Bedrest/Immobile (07/18/2016 20:56:Emerald Schulz RN) Fall Risk Mental Status: (0) Oriented to Own Ability (07/18/2016 22:15:Emerald Schulz RN) Fall Risk Mental Status: (0) Oriented to Own Ability (07/18/2016 20:56:Emerald Schulz RN) Fall Risk Score: 20 (07/18/2016 22:15:QS system process) Fall Risk Score: 0 (07/18/2016 20:56:QS system process) Fall Risk Score Definition: No Risk: No action required (07/18/2016 22:15:QS system process) Fall Risk Score Definition: No Risk: No action required (07/18/2016 20:56:QS system process) RECENT TRAVEL/INFECTIOUS DISEASE Recent Exp Communicable Disease: No (07/18/2016 22:15:Emerald Schulz RN) Recent Exp Communicable Disease: No (07/18/2016 20:56:Emerald Schulz RN) Cough or Fever: No (07/18/2016 22:15:Emerald Schulz RN) Cough or Fever: No (07/18/2016 20:56:Emerald Schulz RN) Foreign Travel Past 10 Days: No (07/18/2016 22:15:Emerald Schulz RN) Foreign Travel Past 10 Days: No (07/18/2016 20:56:Emerald Schulz RN) Open Wounds or Sores: No (07/18/2016 22:15:Emerald Schulz RN) Open Wounds or Sores: No (07/18/2016 20:56:Emerald Schulz RN) Prior Antibiotic Resistance Tx: No (07/18/2016 22:15:Emerald Schulz RN) Prior Antibiotic Resistance Tx: No (07/18/2016 20:56:Emerald Schulz RN) Cultures Obtained: Not Applicable (07/18/2016 22:15:Emerald Schulz RN) Cultures Obtained: Not Applicable (07/18/2016 20:56:Emerald Schulz RN) Isolation Initiated: No (07/18/2016 22:15:Emerald Schulz RN) Isolation Initiated: No (07/18/2016 20:56:Emerald Schulz RN) Pt/Family Education: Handwashing Hygiene (07/18/2016 22:15:Emerald Schulz RN) Pt/Family Education: Handwashing Hygiene (07/18/2016 20:56:Emerald Schulz RN) BABY A FHR Baseline Rate (bpm) Baby A: 130 (07/19/2016 02:00:Stefani Caballero RN) FHR Baseline Rate (bpm) Baby A: 135 (07/19/2016 01:45:Stefani Caballero RN) FHR Baseline Rate (bpm) Baby A: 135 (07/19/2016 01:30:Stefani Caballero RN) FHR Baseline Rate (bpm) Baby A: 135 (07/19/2016 01:15:Stefani Caballero RN) FHR Baseline Rate (bpm) Baby A: 135 (07/19/2016 01:00:Stefani Caballero RN) FHR Baseline Rate (bpm) Baby A: 135 (07/19/2016 00:45:Emerald Schulz RN) FHR Baseline Rate (bpm) Baby A: 135 (07/19/2016 00:30:Emerald Schulz RN) FHR Baseline Rate (bpm) Baby A: 130 (07/19/2016 00:15:Emerald Schulz RN) FHR Baseline Rate (bpm) Baby A: 130 (07/19/2016 00:00:Emerald Schulz RN) FHR Baseline Rate (bpm) Baby A: 135 (07/18/2016 23:45:Emerald Schulz RN) FHR Baseline Rate (bpm) Baby A: 135 (07/18/2016 23:30:Emerald Schulz RN) FHR Baseline Rate (bpm) Baby A: 140 (07/18/2016 22:35:Emerald Schulz RN) FHR Baseline Rate (bpm) Baby A: 140 (07/18/2016 21:23:Emerald Schulz RN) Variability Baby A: Moderate 6-25 bpm (07/19/2016 02:00:Stefani Caballero RN) Variability Baby A: Moderate 6-25 bpm (07/19/2016 01:45:Stefani Caballero RN) Variability Baby A: Moderate 6-25 bpm (07/19/2016 01:30:Stefani Caballero RN) Variability Baby A: Moderate 6-25 bpm (07/19/2016 01:15:Stefani Caballero RN) Variability Baby A: Moderate 6-25 bpm (07/19/2016 01:00:Stefani Caballero RN) Variability Baby A: Moderate 6-25 bpm (07/19/2016 00:45:Emerald Schulz RN) Variability Baby A: Moderate 6-25 bpm (07/19/2016 00:30:Emerald Schulz RN) Variability Baby A: Moderate 6-25 bpm (07/19/2016 00:15:Emerald Schulz RN) Variability Baby A: Moderate 6-25 bpm (07/19/2016 00:00:Emerald Schulz RN) Variability Baby A: Moderate 6-25 bpm (07/18/2016 23:45:Emerald Schulz RN) Variability Baby A: Moderate 6-25 bpm (07/18/2016 23:30:Emerald Schulz RN) Variability Baby A: Moderate 6-25 bpm (07/18/2016 22:35:Emerald Schulz RN) Variability Baby A: Moderate 6-25 bpm (07/18/2016 21:23:Emerald Schulz RN) Accelerations Baby A: 15X15 (07/19/2016 02:00:Stefani Caballero RN) Accelerations Baby A: None (07/19/2016 01:45:Stefani Caballero RN) Accelerations Baby A: None (07/19/2016 01:30:Stefani Caballero RN) Accelerations Baby A: 15X15 (07/19/2016 01:15:Stefani Caballero RN) Accelerations Baby A: 15X15 (07/19/2016 01:00:Stefani Caballero RN) Accelerations Baby A: 15X15 (07/19/2016 00:45:Emerald Schulz RN) Accelerations Baby A: 15X15 (07/19/2016 00:30:Emerald Schulz RN) Accelerations Baby A: 15X15 (07/19/2016 00:15:Emerald Schulz RN) Accelerations Baby A: 15X15 (07/19/2016 00:00:Eemrald Schulz RN) Accelerations Baby A: 15X15 (07/18/2016 22:35:Emerald Schulz RN) Accelerations Baby A: 15X15 (07/18/2016 21:23:Emerald Schulz RN) Decelerations Baby A: Late (07/19/2016 02:00:Stefani Caballero RN) Decelerations Baby A: Early (07/19/2016 01:30:Stefani Caballero RN) Decelerations Baby A: Early (07/19/2016 01:15:Stefani Caballero RN) Decelerations Baby A: None (07/19/2016 01:00:Stefani Caballero RN) Decelerations Baby A: None (07/19/2016 00:45:Emerald Schulz RN) Decelerations Baby A: None (07/19/2016 00:30:Emerald Schulz RN) Decelerations Baby A: None (07/19/2016 00:15:Emerald Schulz RN) Decelerations Baby A: Variable (07/19/2016 00:00:Emerald Schulz RN) Decelerations Baby A: Early (07/18/2016 23:45:Emerald Schulz RN) Decelerations Baby A: Early (07/18/2016 23:30:Emerald Schulz RN) Decelerations Baby A: Variable (07/18/2016 22:35:Emerald Schulz RN) Decelerations Baby A: None (07/18/2016 21:23:Emerald Schulz RN) ADDITIONAL COMMENTS Assessment Flag: Admission Assessment (07/18/2016 22:15:QS system process)
--- NOTE | 2016-07-19 10:46 | L&D Flow Sheet ---
LD Flowsheet Datetime Report Generated by CPN: 07/19/2016 10:45 Datetime: 07/19/2016 05:42 NBP Sys/Gabriela/Mean (mmHg): 112 (QS system process) : 68 (QS system process) : 84 (QS system process) Pulse: 100 (QS system process) Respirations: 16 (Emerald Schulz RN) Temperature (F): 97.6 (Emerald Schulz RN) Temperature (C): 36.4 (QS system process) Temperature Route: Axillary (Emerald Schulz RN) Pain Scale: 1 (Emerald Schulz RN) Pain Presence: Constant (Emerald Schulz RN) Pain Type: Ache (Emearld Schulz RN) Pain Location: Perineum (Emerald Schulz RN) Pain Relief Measures: Comfort Measures (Annotations: ice packs) (Emerald Schulz RN) Datetime: 07/19/2016 03:58 NBP Sys/Gabriela/Mean (mmHg): 127 (QS system process) : 70 (QS system process) : 93 (QS system process) Pulse: 110 (QS system process) Datetime: 07/19/2016 03:43 NBP Sys/Gabriela/Mean (mmHg): 130 (QS system process) : 73 (QS system process) : 93 (QS system process) Pulse: 114 (QS system process) Datetime: 07/19/2016 03:29 NBP Sys/Gabriela/Mean (mmHg): 124 (QS system process) : 75 (QS system process) : 93 (QS system process) Pulse: 100 (QS system process) Datetime: 07/19/2016 03:13 NBP Sys/Gabriela/Mean (mmHg): 115 (QS system process) : 66 (QS system process) : 86 (QS system process) Pulse: 100 (QS system process) Respirations: 20 (Emerald Kossmann, RN) Datetime: 07/19/2016 02:59 NBP Sys/Gabriela/Mean (mmHg): 129 (QS system process) : 58 (QS system process) : 83 (QS system process) Pulse: 100 (QS system process) Datetime: 07/19/2016 02:35 Pain Scale: 2 (Emeraldjanet Schulz, ) Pain Presence: Constant (Emerald Berumenkaitlin ) Pain Type: Ache (Emerald Berumenkaitlin, ) Pain Location: Abdomen; Perineum (Emerald Berumenkaitlin, ) Pain Relief Measures: Pain Medication Given; Comfort Measures (Emerald Berumenkaitlin, ) Datetime: 07/19/2016 02:18 Stage of : [facility] Datetime: 07/19/2016 02:17 Stage 2 Comments: delivery of placenta in de la o position (Emerald Schulz, ) Datetime: 07/19/2016 02:13 NBP Sys/Gabriela/Mean (mmHg): 145 (QS system process) : 75 (QS system process) : 100 (QS system process) Stage 2 Comments: delivery of viable male, placed skin to skin on maternal abdomen . cord clamped and cut after pulsation complete. (Emerald Schulz RN) LaborFlag: Labor (QS system process) Datetime: 07/19/2016 02:09 Pulse: 127 (QS system process) SpO2 (%): 100 (QS system process) Actions for Decelerations: Oxygen Applied (Emerald Schulz RN) LaborFlag: Labor (QS system process) Datetime: 07/19/2016 02:04 Pushing: Coached on Pushing; Urge to Push (Emerald Schulz RN) Pushing Position: Pushing with Contractions (Emerald Schulz RN) Pushing Progress: Descent with Pushing; with Pushing (Emerald Schulz RN) Datetime: 07/19/2016 02:03 Dilatation (cm): 10.0 (Emerald Schulz RN) Datetime: 07/19/2016 02:00 NBP Sys/Gabriela/Mean (mmHg): 135 (QS system process) : 72 (QS system process) : 97 (QS system process) Pulse: 95 (QS system process) Temperature (F): 98.6 (Emerald Schulz RN) Temperature (C): 37.0 (QS system process) Temperature Route: Oral (Emerald Schulz RN) Monitor Mode: External (Stefani Caballero RN) Monitor Interventions for UA: Frontier Adjusted (Stefani Caballero RN) Frequency (min): 2-3 (Stefani Caballero RN) Quality: Strong (Stefani Caballero RN) Duration (sec): 80-160 (Stefani Caballero RN) Pattern: Normal: <= 5 Contractions in 10 Minutes (Stefani Caballero RN) Resting Tone (Palpate): Relaxed (Stefani Caballero RN) Monitor Mode: External US (Stefani Caballero RN) FHR Baseline Rate : 130 (Stefani Caballero RN) Variability: Moderate 6-25 bpm (Stefani Caballero, RN) Accelerations: 15X15 (Stefani Caballero, RN) Decelerations: Late (Stefani Caballero RN) Pain Scale: 5 (Emerald Schulz RN) Pain Presence: Intermittent (Emerald Schulz RN) Pain Type: Contraction (Emerald Schulz RN) Pain Location: Abdomen; Back; Perineum (Emerald Schulz RN) Pain Relief Measures: Comfort Measures (Emerald Schulz RN) Pain Coping: Breathing Through Contractions; Crying (Emerald Schulz RN) LaborFlag: Labor (QS system process) Datetime: 07/19/2016 01:59 Patient Care Comments: pressure applied to knees while in taylors position to assist in back comfort. rn at bedside coaching patient through contractions (Emerald Schulz RN) Datetime: 07/19/2016 01:58 Patient Position/Activity: Right Lateral; Peanut Ball (Emerald Schulz RN) Datetime: 07/19/2016 01:55 Dilatation (cm): 8.5 (Emerald Schulz RN) Effacement (%): 90 (Emerald Schulz RN) Station: 1 (Emerald Schulz RN) Exam by: LIZETH Schulz (Emerald Schulz RN) Patient Care Comments: pressure applied to knees while in t[place]lors position to assist in back comfort. rn at bedside coaching patient through contractions (Emerald Schulz RN) Communication Comments: Dr. Chopra at bedside, discussing poc (Emerald Schulz RN) Datetime: 07/19/2016 01:45 Monitor Mode: External; Palpation (Stefani Caballero RN) Frequency (min): 2-3 (Stefani Caballero RN) Quality: Strong (Stefani Caballero, RN) Duration (sec): 60-120 (Stefani Caballero, RN) Pattern: Normal: <= 5 Contractions in 10 Minutes (Stefani Caballero, RN) Resting Tone (Palpate): Relaxed (Stefani Caballero, RN) Monitor Mode: External US (Stefani Caballero, RN) FHR Baseline Rate : 135 (Stefani Caballero, RN) Variability: Moderate 6-25 bpm (Stefani Caballero, RN) Accelerations: None (Stefani Caballero, RN) Datetime: 07/19/2016 01:43 NBP Sys/Gabriela/Mean (mmHg): 135 (QS system process) : 87 (QS system process) : 105 (QS system process) Pulse: 80 (QS system process) LaborFlag: Labor (QS system process) Datetime: 07/19/2016 01:38 Patient Care Comments: pressure applied to knees while in taylors position to assist in back comfort. rn at bedside coaching patient through contractions (Emerald Schulz RN) Datetime: 07/19/2016 01:35 Patient Care Comments: iv lr hung (Emerald Kossmann, RN) Datetime: 07/19/2016 01:30 Monitor Mode: External (Stefani Caballero, RN) Frequency (min): 2-2.5 (Stefani Caballero, RN) Quality: Moderate to Strong (Stefani Caballero, RN) Duration (sec): 50-140 (Stefani Caballero, RN) Pattern: Normal: <= 5 Contractions in 10 Minutes (Stefani Caballero, RN) Resting Tone (Palpate): Relaxed (Stefani Caballero, RN) Monitor Mode: External US (Stefani Caballero, RN) FHR Baseline Rate : 135 (Stefani Caballero, RN) Variability: Moderate 6-25 bpm (Stefani Caballero, RN) Accelerations: None (Stefani Caballero, RN) Decelerations: Early (Stefani Caballero, RN) Datetime: 07/19/2016 01:28 NBP Sys/Gabriela/Mean (mmHg): 120 (QS system process) : 80 (QS system process) : 96 (QS system process) Pulse: 81 (QS system process) LaborFlag: Labor (QS system process) Datetime: 07/19/2016 01:17 Patient Care Comments: pressure applied to knees while in t[place]lors position to assist in back comfort. rn at bedside coaching patient through contractions (Emerald Schulz RN) Datetime: 07/19/2016 01:15 Monitor Mode: External (Stefani Caballero, RN) Frequency (min): 2-4 (Stefani Caballero, RN) Quality: Moderate to Strong (Stefani Caballero, RN) Duration (sec): 90-180 (Stefani Caballero, RN) Pattern: Normal: <= 5 Contractions in 10 Minutes (Stefani Caballero, RN) Resting Tone (Palpate): Relaxed (Stefani Caballero, RN) Monitor Mode: External US (Stefani Caballero, RN) FHR Baseline Rate : 135 (Stefani Caballero, RN) Variability: Moderate 6-25 bpm (Stefani Caballero, RN) Accelerations: 15X15 (Stefani Caballero, RN) Decelerations: Early (Stefani Caballero, RN) Datetime: 07/19/2016 01:13 NBP Sys/Gabriela/Mean (mmHg): 115 (QS system process) : 89 (QS system process) : 100 (QS system process) Pulse: 83 (QS system process) LaborFlag: Labor (QS system process) Datetime: 07/19/2016 01:07 Dilatation (cm): 8.0 (Emerald Schulz RN) Effacement (%): 90 (Emerald Schulz RN) Station: 0 (Emerald Schulz RN) Exam by: LIZETH Schulz (Emerald Schulz RN) Vaginal Exam Comments: patient involuntary pushing (Emerald Schulz RN) Datetime: 07/19/2016 01:01 Patient Position/Activity: High Fowlers (Emerald Schulz RN) Patient Care Comments: pressure applied to knees while in taylors position to assist in back comfort. rn at bedside coaching patient through contractions. (Emerald Schulz RN) Datetime: 07/19/2016 01:00 Monitor Mode: External; Palpation (Stefani Caballero RN) Frequency (min): 2-3 (Stefani Caballero RN) Quality: Moderate to Strong (Stefani Caballero RN) Duration (sec): 90-110 (Stefani Caballero RN) Pattern: Normal: <= 5 Contractions in 10 Minutes (Stefani Caballero RN) Resting Tone (Palpate): Relaxed (Stefani Caballero RN) Monitor Mode: External US (Stefani Caballero RN) FHR Baseline Rate : 135 (Stefani Caballero, RN) Variability: Moderate 6-25 bpm (Stefani Caballero, RN) Accelerations: 15X15 (Stefani Caballero, RN) Decelerations: None (Stefani Caballero, RN) Datetime: 07/19/2016 00:56 Dilatation (cm): 8.0 (Emerald Schulz RN) Effacement (%): 90 (Emerald Schulz RN) Station: -1 (Emerald Schulz RN) Exam by: Dr. Chopra (Emerald Schulz RN) Membrane Status: Ruptured (Emerald Schulz RN) Membranes Ruptured Date/Time: 07/19/2016 00:56 (Emerald Schulz RN) Membranes Rupture Method: Spontaneous (Emerald Schulz RN) Amniotic Fluid Color: Clear (Emerald Schulz RN) Amniotic Fluid Amount: Moderate (Emerald Schulz RN) Amniotic Fluid Odor: Normal (Emerald Schulz RN) Datetime: 07/19/2016 00:49 Communication Comments: Dr. Chopra aware of patient request for water to be broken . (Emerald Schulz, RN) Datetime: 07/19/2016 00:45 Monitor Mode: External; Palpation (Emerald Schulz, RN) Frequency (min): 3-4 (Emerald Schulz, RN) Quality: Moderate (Emerald Haywoodann, RN) Duration (sec): 40-100 (Emerald Haywoodann, RN) Resting Tone (Palpate): Relaxed (Emerald Berumensmann, RN) Monitor Mode: External US (mEerald Schulz, RN) FHR Baseline Rate : 135 (Emerald Schulz, RN) Variability: Moderate 6-25 bpm (Emerald Atasmann, RN) Accelerations: 15X15 (Emerald Atasmann, RN) Decelerations: None (Emerald Atasmann, RN) Datetime: 07/19/2016 00:40 Dilatation (cm): 7.5 (Emeraldjanet Schulz, RN) Effacement (%): 90 (Emerald Schulz RN) Station: -1 (Emerald Schulz RN) Exam by: LIZETH Schulz (Emerald Schulz RN) Vaginal Exam Comments: BBOW with contractions, patient requesting water to be broken (Emerald Schulz RN) Datetime: 07/19/2016 00:38 NBP Sys/Gabriela/Mean (mmHg): 124 (QS system process) : 80 (QS system process) : 96 (QS system process) Pulse: 82 (QS system process) Temperature (F): 98.6 (Emerald Schulz RN) Temperature (C): 37.0 (QS system process) Temperature Route: Oral (Emerald Schulz RN) Pain Scale: 4 (Emerald Schulz RN) Pain Presence: Intermittent (Emerald Schulz RN) Pain Type: Contraction (Emerald Schulz RN) Pain Location: Abdomen; Back (Emerald Schulz RN) Pain Relief Measures: Comfort Measures (Emerald Schulz RN) Pain Coping: Talking Through Contractions; Breathing Through Contractions (Emerald Schulz RN) LaborFlag: Labor (QS system process) Datetime: 07/19/2016 00:30 Monitor Mode: External; Palpation (Emerald Kossmann, RN) Frequency (min): 2-5 (Emerald Kossmann, RN) Quality: Moderate (Emerald Kossmann, RN) Duration (sec): 40-100 (Emerald Kossmann, RN) Resting Tone (Palpate): Relaxed (Emerald Kossmann, RN) Monitor Mode: External US (Emerald Kossmann, RN) FHR Baseline Rate : 135 (Emerald Kossmann, RN) Variability: Moderate 6-25 bpm (Emerald Kossmann, RN) Accelerations: 15X15 (Emerald Kossmann, RN) Decelerations: None (Emerald Kossmann, RN) Datetime: 07/19/2016 00:15 Monitor Mode: External; Palpation (Emerald Kossmann, RN) Frequency (min): 2-4 (Emerald Kossmann, RN) Quality: Moderate (Emerald Kossmann, RN) Duration (sec): 30-80 (Emerald Kossmann, RN) Resting Tone (Palpate): Relaxed (Emerald Kossmann, RN) Monitor Mode: External US (Emerald Kossmann, RN) FHR Baseline Rate : 130 (Emerald Kossmann, RN) Variability: Moderate 6-25 bpm (Emerald Kossmann, RN) Accelerations: 15X15 (Emerald Kossmann, RN) Decelerations: None (Emerald Kossmann, RN) Datetime: 07/19/2016 00:00 Monitor Mode: External; Palpation (Emerald Kossmann, RN) Frequency (min): irregular (Emerald Kossmann, RN) Quality: Moderate (Emerald Kossmann, RN) Duration (sec): 40-80 (Emerald Kossmann, RN) Resting Tone (Palpate): Relaxed (Emerald Kossmann, RN) Monitor Mode: External US (Emerald Kossmann, RN) FHR Baseline Rate : 130 (Emerald Kossmann, RN) Variability: Moderate 6-25 bpm (Emerald Kossmann, RN) Accelerations: 15X15 (Emerald Kossmann, RN) Decelerations: Variable (Emerald Kossmann, RN) Datetime: 07/18/2016 23:45 Monitor Mode: External; Palpation (Emerald Kossmann, RN) Frequency (min): 2.5-4 (Emerald Kossmann, RN) Quality: Moderate (Emerald Kossmann, RN) Duration (sec): 40-70 (Emerald Kossmann, RN) Resting Tone (Palpate): Relaxed (Emerald Schulz RN) Monitor Mode: External US (Emerald Schulz RN) FHR Baseline Rate : 135 (Emerald Schulz RN) Variability: Moderate 6-25 bpm (Emerald Schulz RN) Decelerations: Early (Emerald Schulz, RN) Datetime: 07/18/2016 23:35 Dilatation (cm): 6.5 (Emerald Schulz RN) Effacement (%): 90 (Emerald Schulz RN) Station: -1 (Emerald Schulz RN) Exam by: LIZETH Schulz (Emerald Schulz RN) Datetime: 07/18/2016 23:30 Monitor Mode: External; Palpation (Emerald Schulz RN) Frequency (min): irregular (Emerald Schulz RN) Quality: Moderate (Emerald Schulz RN) Duration (sec): 50-90 (Emerald Schulz RN) Resting Tone (Palpate): Relaxed (Emerald Schulz RN) Monitor Mode: External US (Emerald Schulz RN) FHR Baseline Rate : 135 (Emerald Schulz RN) Variability: Moderate 6-25 bpm (Emerald Schulz RN) Decelerations: Early (Emerald Schulz RN) Datetime: 07/18/2016 23:19 NBP Sys/Gabriela/Mean (mmHg): 119 (QS system process) : 75 (QS system process) : 89 (QS system process) Pulse: 104 (QS system process) LaborFlag: Labor (QS system process)
--- NOTE | 2016-07-19 10:46 | L&D Discharge Summary ---
OB Discharge Summary Datetime Report Generated by CPN: 07/19/2016 10:45 DISCHARGE DIAGNOSIS Gestation: 39.2 Number of Babies in Womb: 1 Parity: 1
--- NOTE | 2016-07-19 10:46 | L&D Current Admission ---
Current Admit Datetime Report Generated by CPN: 07/19/2016 10:45 ADMISSION INFORMATION Current Admit Date/Time: 07/18/2016 20:30 (07/18/2016 20:56:Steffanie Mchugh RN) Reason for Admission: Onset of Labor (07/18/2016 20:56:Steffanie Mchugh RN) Chief Complaint: Contractions (07/18/2016 20:56:Emerald Schulz RN) Medications During : Diphenhydramine (Benedryl); Vitamin (07/18/2016 20:56:Steffanie Mchugh RN) Meds During -Oth: macrobid, betamethsone (07/18/2016 20:56:Steffanie Mchugh RN) EGA per Dates: 39.1 (07/18/2016 20:56:QS system process) EGA per US: 39.0 (07/18/2016 20:56:QS system process) Method of Arrival: Wheelchair (07/18/2016 20:56:Steffanie Mchugh RN) Admitted From: Home (07/18/2016 20:56:Steffanie Mchugh RN) Reason for Induction: Not Applicable (07/18/2016 20:56:Steffanie Mchugh RN) Records Available: Yes (07/18/2016 20:56:Steffanie Mchugh RN) General Admission Information: Reviewed; Confirmed (07/18/2016 20:56:Steffanie Mchugh RN) General Admission Reviewed By: Edgardo Schulz RN (07/18/2016 20:56:Steffanie Mchugh RN) BELONGINGS/ADVANCED DIRECTIVES Valuables/Personal Effects: Cell Phone (07/18/2016 20:56:Steffanie Mchugh RN) Other Belongings: see paper belongings form (07/18/2016 20:56:Steffanie Mchugh RN) Disposition of Belongings: Kept with Patient (07/18/2016 20:56:Steffanie Mchugh RN) Advance Direct for Healthcare: No, and Wants No Information (07/18/2016 20:56:Steffanie Mchugh RN) Durable Power of Elevator Mechanic: No (07/18/2016 20:56:Steffanie Mchugh RN) Living Will: No (07/18/2016 20:56:Steffanie Mchugh RN) Organ Donor: Yes (07/18/2016 20:56:Emerald Schulz RN) Pt Rights Information Given: Yes (07/18/2016 20:56:Steffanie Mchugh RN) Pt Understands Pt Rights: Yes (07/18/2016 20:56:Steffanie Mchugh RN) Patient Rights Comments: Given in patient access (07/18/2016 20:56:Emerald Schulz RN) LEARNING ASSESSMENT Knowledge Level: Understands L_D Process; Understands Care Activities; Had Pre-Hospital Education; Understands Diagnosis (07/18/2016 20:56:Steffanie Mchugh RN) Barriers to Learning: None (07/18/2016 20:56:Steffanie Mchugh RN) Learning Readiness: Motivated (07/18/2016 20:56:Steffanie Mchugh RN) Learns Best By: 1 to 1 Instruction (07/18/2016 20:56:Steffanie Mchugh RN) Learning Needs: Labor and Delivery Process; Pain Management; Symptoms to Report; Treatment Plan; Medication; Diagnosis; Nutrition; Equipment; Care; Community Resources (07/18/2016 20:56:Steffanie Mchugh RN) DOMESTIC VIOLANCE SCREENING Dom Viol Threatened/Hurt: No (07/18/2016 20:56:Steffanie Mchugh RN) Hx of Abuse/Neglect past 2yrs: No (07/18/2016 20:56:Steffanie Mchugh RN) Feel Unsafe Going Home: No (07/18/2016 20:56:Steffanie Mchugh RN) Addt'l Observ Indicating Abuse: No (07/18/2016 20:56:Steffanie Mchugh RN) Reason Unable to Complete Screen: N/A, Screen Completed (07/18/2016 20:56:Steffanie Mchugh RN) Considered Personal Harm/Suicide: No (07/18/2016 20:56:Steffanie Mchugh RN) NUTRITIONAL/FUNCTIONAL SCREENING Problem with Appetite >5 Days: No (07/18/2016 20:56:Steffanie Mchugh RN) Chew/Swallow Difficulties: No (07/18/2016 20:56:Steffanie Mchugh RN) Inappropriate Wt Gain/Loss: No (07/18/2016 20:56:Steffanie Mchugh RN) Presence Skin Breakdown/Ulcer: No (07/18/2016 20:56:Steffanie Mchugh RN) Special Diet: No (07/18/2016 20:56:Steffanie Mchugh RN) Pt Requests Biofuels Product Manager Visit: No (07/18/2016 20:56:Steffanie Mchugh RN) Hx of Any of the Following?: N/A (07/18/2016 20:56:tSeffanie Mchugh RN) New Diagnosis of: N/A (07/18/2016 20:56:Steffanie Mchugh RN) Requires Assist w/Ambulation: No (07/18/2016 20:56:Steffanie Mchugh RN) Uses Assist Device to Ambulate: No (07/18/2016 20:56:Steffanie Mchugh RN) Pt Requires Help w/ADL's: No (07/18/2016 20:56:Steffanie Mchugh RN)
--- NOTE | 2016-07-19 11:19 | PDOC PROGRESS REPORT ---
Subjective-OB Subjective: Post Delivery Day: 31 year old. Denies any needs at this time. Pt doing well, no concerns. She reports light bleeding, regular diet and voiding well. . Physical Exam (OB) Vital Signs: Temp Pulse Resp BP Pulse Ox 98.0 F 84 16 117/74 95 07/19/16 07:39 07/19/16 07:39 07/19/16 07:39 07/19/16 07:39 07/19/16 07:39 Intake & Output 07/18/16 07/19/16 07/20/16 06:59 06:59 06:59 Intake Total 400 Balance 400 Weight 73.75 kg - Lochia Lochia Amount: Scant < 10 ml Lochia Color: Rubra/Red - Abdomen Description: Tender, Soft Hernia Present: No Fundal Description: Firm, Midline Fundal Height: u/u - u/2 Objective-Diagnostic Laboratory: 07/18/16 22:27 07/18/16 07/18/16 07/18/16 20:36 22:27 22:27 WBC 13.1 H RBC 4.15 Hgb 12.3 Hct 36.4 MCV 88 MCH 29.7 MCHC 33.9 RDW 13.4 Plt Count 315 Seg Neutrophils % 75.4 Lymphocytes % 15.9 Monocytes % 8.0 Eosinophils % 0.5 Basophils % 0.2 Absolute Neutrophils 9.8 H Absolute Lymphocytes 2.1 Absolute Monocytes 1.0 Absolute Eosinophils 0.1 Absolute Basophils 0.0 Urine Color YELLOW Urine Appearance SLIGHTLY-CLOUDY Urine pH 6.0 Ur Specific [place] 1.010 Urine Protein NEGATIVE Urine Glucose (UA) 50 H Urine Ketones NEGATIVE Urine Blood MODERATE H Urine Nitrite NEGATIVE Ur Leukocyte Esterase MODERATE H Blood Type A POSITIVE Antibody Screen NEGATIVE Assessment and Plan(PN) - Assessment and Plan (1) Vaginal delivery Is this a current diagnosis for this admission?: Yes - Time Spent with Patient Time with patient: Less than 15 minutes Medications reviewed and adjusted accordingly: Yes - Disposition Anticipated Discharge: Home Within: within 24 hours
--- NOTE | 2016-07-19 16:45 | L&D General Admission ---
General Admit Datetime Report Generated by CPN: 07/19/2016 16:45 INFORMATION Patient Age: 31 (07/18/2016 20:22:QS system process) EDC: 07/24/2016 00:00 (07/18/2016 20:26:Janet Baumann RN) EDC per Ultrasound: 07/25/2016 00:00 (07/18/2016 20:26:Janet Baumann RN) LMP: 07/24/2016 00:00 (07/18/2016 20:26:Janet Baumann RN) : 2 (07/18/2016 20:26:Janet Baumann RN) Para: 1 (07/18/2016 20:26:Janet Baumann RN) Term: 1 (07/18/2016 20:26:Janet Baumann RN) : 0 (07/18/2016 20:26:Janet Baumann RN) Spontaneous Abortions: 0 (07/18/2016 20:26:Janet Baumann RN) Induced Abortions: 0 (07/18/2016 20:26:Janet Baumann RN) Livin (07/18/2016 20:26:Janet Ring, RN) Cesareans: 0 (07/18/2016 20:26:Janet Ring, RN) VBACs: 0 (07/18/2016 20:26:Janet Ring, RN) Ectopic: 0 (07/18/2016 20:26:Janet Ring, RN) Multiple Births: 0 (07/18/2016 20:26:Janet Ring, RN) Baby, Number in Womb: 1 (07/18/2016 20:26:Janet Ring, RN) CARE Primary Orthopedics Nurse: [facility] (07/18/2016 20:26:Janet Ring, RN) Adequate Care: Yes (07/18/2016 20:26:Janet Ring, RN) Height (in): 67 (07/19/2016 06:01:QS system process) Height (in): 67 (07/18/2016 21:38:QS system process) ALLERGIES Medication Allergy: No (07/18/2016 20:26:Janet Ring, RN) Medication Allergies: No Known Allergies (07/18/2016) (07/18/2016 21:37:QS system process) Medication Allergies: No Known Allergies (06/09/2016) (07/18/2016 20:22:QS system process) Latex Allergy: No Latex Allergies (07/18/2016 20:26:Janet Baumann RN) Food Allergies: None (07/18/2016 20:26:Stefani Caballero RN) Environmental Allergies: None (07/18/2016 20:26:Stefani Caballero RN) COMMUNICATION Primary Language: Micronesian (07/18/2016 20:26:Janet Baumann RN) Medical Tx Preferred Language: Micronesian (07/18/2016 20:26:Janet Baumann RN) Micronesian Communication Ability: Speaks Micronesian; Reads Micronesian (07/18/2016 20:26:Emerald Schulz RN) Communication Barrier(s): None (07/18/2016 20:26:Janet Baumann RN) DEMOGRAPHICS Address: [address] [place] [id number] (07/18/2016 20:22:QS system process) Zipcode: [id number] (07/18/2016 20:22:QS system process) Home (07/18/2016 20:22:QS system process) Work (07/18/2016 20:22:QS system process) SSN: [id number] (07/18/2016 20:22:QS system process) Next of Kin Name: ADOLFO MILLS (07/18/2016 20:22:QS system process) Next of Kin (07/18/2016 20:22:QS system process) Next of Kin Relationship: MO (07/18/2016 20:22:QS system process) Date of : 1985 (07/18/2016 20:22:QS system process) Marital Status: (07/18/2016 20:22:QS system process) Sex: Female (07/18/2016 20:22:QS system process) Race: (07/18/2016 20:22:QS system process) Ethnicity: Non- or (07/18/2016 20:22:QS system process) Cheondoism: Scientology (07/18/2016 20:22:QS system process) DRUG AND ALCOHOL USE Alcohol: No (07/18/2016 20:26:Emerald Schulz RN) Cigarettes: Never Smoker. [id number] (07/18/2016 20:26:Emerald Schulz RN) Marijuana: No (07/18/2016 20:26:Emerald Schulz RN) Cocaine: No (07/18/2016 20:26:Emerald Schulz RN) Other Illicit Drugs: No (07/18/2016 20:26:Emerald Schulz RN) VACCINE HISTORY Influenza Vaccine: Yes (07/18/2016 20:26:Emerald Schulz RN) Influenza Date: 2016 (07/18/2016 20:26:Emerald Schulz RN) Pneumococcal Vaccine: No (07/18/2016 20:26:Emerald Schulz RN) Tetanus Vaccine: Uncertain (07/18/2016 20:26:Emerald Schulz RN) Tdap Vaccine: Yes (07/18/2016 20:26:Janet Baumann RN) Tdap Date: 2016 (07/18/2016 20:26:Janet Baumann RN) Hepatitis B Vaccine: Yes (07/18/2016 20:26:Emerald Schulz RN) Word Processing Machine Operator: [facility] (07/18/2016 20:26:Emerald Schulz RN) Feeding Preference: Breast (07/18/2016 20:26:Emerald Schulz RN) Benefit of Breast Feed Discussed: Yes (07/18/2016 20:26:Emerald Schulz RN) Circumcision: Yes (07/18/2016 20:26:Emerald Schulz RN) Classes Attended: No (07/18/2016 20:26:Emerald Schulz RN) Tubal Ligation: No (07/18/2016 20:26:Emerald Schulz RN) Tubal Authorization Signed: N/A (07/18/2016 20:26:Emerald Schulz RN) Consent: N/A (07/18/2016 20:26:Emerald Schulz RN) Consent Signed: N/A (07/18/2016 20:26:Emerald Schulz RN) Pain Management Plans: Natural (07/18/2016 20:26:Emerald Schulz RN) Plans for Labor and Delivery: Plan (07/18/2016 20:26:Emerald Schulz RN) Other Labor and Delivery Plans: skin to skin, no pacifiers, delayed cord clamping (07/18/2016 20:26:Emerald Schulz RN) Support Person: Tye (07/18/2016 20:26:Emerald Schulz RN) Support Person Relationship: (07/18/2016 20:26:Emerald Schulz RN) Cultural/Spritual Practice: No (07/18/2016 20:26:Emerald Schulz RN) Spir/Cult Dietary Needs: No (07/18/2016 20:26:Emerald Schulz RN) LIVING SITUATION/DISCHARGE PLAN Living Arrangements: House (07/18/2016 20:26:Emerald Schulz RN) Adequate Access to:: Electric; Heat; Refrigeration; Plumbing/Running water; Phone; Transportation (07/18/2016 20:26:Emerald Schulz RN) WIC Program: No (07/18/2016 20:26:Emerald Schulz RN) Discharge Classified Ad Taker Person: Tye (07/18/2016 20:26:Emerald Schulz RN) Person to Help after Discharge: Tye (07/18/2016 20:26:Emerald Schulz RN) Currently Using Commun Resources: No (07/18/2016 20:26:Emerald Schulz RN) Outside Agency/Clinical Nursing Director: No (07/18/2016 20:26:Emerald Schulz RN) Car Seat for Discharge: Yes (07/18/2016 20:26:Emerald Schulz RN) Adoption Requested: No (07/18/2016 20:26:Emerald Schulz RN) Pt Contact w/infant Post : N/A (07/18/2016 20:26:Emerald Schulz RN) LABS Blood Type: A Positive (07/18/2016 20:26:Janet Baumann RN) Antibody Screen: Negative (07/18/2016 20:26:Janet Baumann RN) Rho(G) this : Not Applicable (07/18/2016 20:26:Janet Baumann RN) Hemoglobin: 12.3 (07/18/2016 22:27:QS system process) Hematocrit: 36.4 (07/18/2016 22:27:QS system process) MCV: 88 (07/18/2016 22:27:QS system process) Group Beta Strep: Negative (07/18/2016 20:26:Janet Baumann RN) Gonorrhea: Negative (07/18/2016 20:26:Janet Baumann RN) Chlamydia: Negative (07/18/2016 20:26:Janet Baumann RN) RPR/VDRL: Nonreactive (07/18/2016 20:26:Janet Baumann RN) HIV Results: Negative (07/18/2016 20:26:Janet Baumann RN) Hepatitis B: Negative (07/18/2016 20:26:Janet Baumann RN) Rubella: Immune (07/18/2016 20:26:Janet Baumann RN) OB/PREVIOUS HISTORY LMP: 07/24/2016 00:00 (07/18/2016 20:26:Janet Baumann RN) Previous Procedures: Ultrasound; NST; Tocolysis (07/18/2016 20:26:Emerald Schulz RN) Current Procedures: Ultrasound; NST (07/18/2016 20:26:Emerald Schulz RN) History of Previous : No (07/18/2016 20:26:Janet Baumann RN) History of Gestational Diabetes: No (07/18/2016 20:26:Emerald Schulz RN) History of PIH: No (07/18/2016 20:26:Emerald Schulz RN) History of Incompetent Cervix: No (07/18/2016 20:26:Emerald Schulz RN) History of Placenta Previa/Abrup: No (07/18/2016 20:26:Emerald Schulz RN) History of Macrosomia: No (07/18/2016 20:26:Emerald Schulz RN) History of IUGR: No (07/18/2016 20:26:Emerald Schulz RN) History of Hemorrhage: No (07/18/2016 20:26:Emerald Schulz RN) History of Loss/Stillborn: No (07/18/2016 20:26:Janet Baumann RN) History of : No (07/18/2016 20:26:Janet Baumann RN) History of D (Rh) Sensitization: No (07/18/2016 20:26:Janet Baumann RN) History Recurrent Loss/Stillborn: No (07/18/2016 20:26:Janet Baumann RN) History Depression/PP Depression: No (07/18/2016 20:26:Emerald Schulz RN) History of Uterine Anomaly/DIVYA: No (07/18/2016 20:26:Janet Baumann RN) History of Infertility: No (07/18/2016 20:26:Emerald Schulz RN) History of ART Treatment: No (07/18/2016 20:26:Emerald Schulz RN) History of DIVYA: No (07/18/2016 20:26:Janet Baumann RN) Comments Obstetrical History: G1: PTL; , delivered at 41.1, girl, delivered naturally G2: current, ptl received steriods only this time (07/18/2016 20:26:Emerald Schulz RN) MEDICAL HISTORY Med Hx Diabetes: No (07/18/2016 20:26:Emerald Schulz RN) Med Hx Hypertension: No (07/18/2016 20:26:Emerald Schulz RN) Med Hx Heart Disease: No (07/18/2016 20:26:Emerald Schulz RN) Med Hx Autoimmune Disorder: No (07/18/2016 20:26:Emerald Schulz RN) Med Hx Kidney Disease/UTI: Yes (07/18/2016 20:26:Janet Baumann RN) Med Hx Neurologic/Epilepsy: No (07/18/2016 20:26:Emerald Schulz RN) Med Hx Psychiatric Disorders: No (07/18/2016 20:26:Emerald Schulz RN) Med Hx Hepatitis/Liver Disease: No (07/18/2016 20:26:Emerald Schulz RN) Med Hx Varicosities/Phlebitis: No (07/18/2016 20:26:Emerald Schulz RN) Med Hx Thyroid Dysfunction: No (07/18/2016 20:26:Emerald Schulz RN) Med Hx Trauma/Violence: No (07/18/2016 20:26:Emerald Schulz RN) Med Hx Blood Transfusion: No (07/18/2016 20:26:Emerald Schulz RN) Med Hx Pulmonary (Asthma,TB): No (07/18/2016 20:26:Emerald Schulz RN) Med Hx Breast: No (07/18/2016 20:26:Emerald Schulz RN) Med Hx SPEECH PATHOLOGIST Surgery: No (07/18/2016 20:26:Emerald Schulz RN) Med Hx Hospitalization/Surgery: Yes (07/18/2016 20:26:Janet Baumann RN) Med Hx Anesthetic Complications: No (07/18/2016 20:26:Emerald Schulz RN) Med Hx Abnormal Pap Smear: No (07/18/2016 20:26:Emerald Schulz RN) Other Medical Diseases: No (07/18/2016 20:26:Emerald Schulz RN) Med Hx Significant Family Hx: No (07/18/2016 20:26:Emerald Schulz RN) Details of Med/Surg Hx: UTIs prior to , labor and delivery of first child, patient had stress per provider on 07/15/16 and suggested to check re ppdepression (07/18/2016 20:26:Emerald Schulz RN) INFECTIOUS HISTORY Inf Hx Gonorrhea: No (07/18/2016 20:26:Emerald Schulz RN) Inf Hx Chlamydia: No (07/18/2016 20:26:Emerald Schulz RN) Inf Hx Syphilis: No (07/18/2016 20:26:Emerald Schulz RN) Inf Hx HIV/AIDS: No (07/18/2016 20:26:Emerald Schulz RN) Inf Hx Human Papilloma Virus: No (07/18/2016 20:26:Emerald Schulz RN) Inf Hx Pt/Partner Genital Herpes: No (07/18/2016 20:26:Emerald Schulz RN) Inf Hx Tuberculosis/Exposure: No (07/18/2016 20:26:Emerald Schulz RN) Inf Hx Hepatitis B,C: No (07/18/2016 20:26:Emerald Schulz RN) Inf Hx Rash or Viral Illness: No (07/18/2016 20:26:Emerald Schulz RN) GENETIC HISTORY Gen Hx Age >=35 at COLBY: No (07/18/2016 20:26:Emerald Schulz RN) Gen Hx Thalassemia: No (07/18/2016 20:26:Emerald Schulz RN) Gen Hx Congenital Heart Defect: No (07/18/2016 20:26:Emerald Schulz RN) Gen Hx Neural Tube Defect: No (07/18/2016 20:26:Emerald Schulz RN) Gen Hx Down's Syndrome: No (07/18/2016 20:26:Emerald Schulz RN) Gen Hx Virgil-Sachs: No (07/18/2016 20:26:Emerald Schulz RN) Gen Hx Mercy: No (07/18/2016 20:26:Emerald Schulz RN) Gen Hx Familial Dysautonomia: No (07/18/2016 20:26:Emerald Schulz RN) Gen Hx Sickle Cell Disease/Trait: No (07/18/2016 20:26:Emerald Schulz RN) Gen Hx Hemophilia/Blood Disorder: No (07/18/2016 20:26:Emerald Schulz RN) Gen Hx Muscular Dystrophy: No (07/18/2016 20:26:Emerald Schulz RN) Gen Hx Cystic Fibrosis: No (07/18/2016 20:26:Emerald Schulz RN) Gen Hx Huntingtons Chorea: No (07/18/2016 20:26:Emerald Schulz RN) Gen Hx Mental Retardation/Autism: No (07/18/2016 20:26:Emerald Schulz RN) Gen Hx Tested for Fragile X: No (07/18/2016 20:26:Emerald Schulz RN) Gen Hx Other Inher/Chromosomal: No (07/18/2016 20:26:Emerald Schulz RN) Gen Hx Maternal Metabolic DO: No (07/18/2016 20:26:Emerald Schulz RN) Gen Hx Pt Father or FOB Defect: No (07/18/2016 20:26:Emerald Schulz RN) Gen Hx Other Genetic History: No (07/18/2016 20:26:Emerald Schulz RN) Gen Hx Drugs/Meds since LMP: Yes (07/18/2016 20:26:Janet Baumann RN) Gen Hx Medications: PNV, Macrobid, Benadryl (07/18/2016 20:26:Emerald Schulz RN)
--- NOTE | 2016-07-19 16:45 | L&D Discharge Summary ---
OB Discharge Summary Datetime Report Generated by CPN: 07/19/2016 16:45 DISCHARGE DIAGNOSIS Gestation: 39.2 Number of Babies in Womb: 1 Parity: 1
--- NOTE | 2016-07-19 16:45 | L&D Flow Sheet ---
LD Flowsheet Datetime Report Generated by CPN: 07/19/2016 16:45 Datetime: 07/19/2016 05:42 NBP Sys/Gabriela/Mean (mmHg): 112 (QS system process) : 68 (QS system process) : 84 (QS system process) Pulse: 100 (QS system process) Respirations: 16 (Emerald Schulz RN) Temperature (F): 97.6 (Emerald Schulz RN) Temperature (C): 36.4 (QS system process) Temperature Route: Axillary (Emerald Schulz RN) Pain Scale: 1 (Emerald Shculz RN) Pain Presence: Constant (Emerald Schulz RN) Pain Type: Ache (Emerald Schulz RN) Pain Location: Perineum (Emerald Schulz RN) Pain Relief Measures: Comfort Measures (Annotations: ice packs) (Emerald Schulz RN)
--- NOTE | 2016-07-19 22:45 | L&D Discharge Summary ---
OB Discharge Summary Datetime Report Generated by CPN: 07/19/2016 22:45 DISCHARGE DIAGNOSIS Gestation: 39.2 Number of Babies in Womb: 1 Parity: 1
--- NOTE | 2016-07-19 22:45 | L&D Current Admission ---
Current Admit Datetime Report Generated by CPN: 07/19/2016 22:45 ADMISSION INFORMATION Current Admit Date/Time: 07/18/2016 20:30 (07/18/2016 20:56:Steffanie Mchugh RN) Reason for Admission: Onset of Labor (07/18/2016 20:56:Steffanie Mchugh RN) Chief Complaint: Contractions (07/18/2016 20:56:Emerald Schulz RN) Medications During : Diphenhydramine (Benedryl); Vitamin (07/18/2016 20:56:Steffanie Mchugh RN) Meds During -Oth: macrobid, betamethsone (07/18/2016 20:56:Steffanie Mchugh RN) EGA per Dates: 39.1 (07/18/2016 20:56:QS system process) EGA per US: 39.0 (07/18/2016 20:56:QS system process) Method of Arrival: Wheelchair (07/18/2016 20:56:Steffanie Mchugh RN) Admitted From: Home (07/18/2016 20:56:Steffanie Mchugh RN) Reason for Induction: Not Applicable (07/18/2016 20:56:Steffanie Mchugh RN) Records Available: Yes (07/18/2016 20:56:Steffanie Mchugh RN) General Admission Information: Reviewed; Confirmed (07/18/2016 20:56:Steffanie Mchugh RN) General Admission Reviewed By: Edgardo Schulz RN (07/18/2016 20:56:Steffanie Mchugh RN) BELONGINGS/ADVANCED DIRECTIVES Valuables/Personal Effects: Cell Phone (07/18/2016 20:56:Steffanie Mchugh RN) Other Belongings: see paper belongings form (07/18/2016 20:56:Steffanie Mchugh RN) Disposition of Belongings: Kept with Patient (07/18/2016 20:56:Steffanie Mchugh RN) Advance Direct for Healthcare: No, and Wants No Information (07/18/2016 20:56:Steffanie Mchugh RN) Durable Power of Bobbin Presser: No (07/18/2016 20:56:Steffanie Mchugh RN) Living Will: No (07/18/2016 20:56:Steffanie Mchugh RN) Organ Donor: Yes (07/18/2016 20:56:Emerald Schulz RN) Pt Rights Information Given: Yes (07/18/2016 20:56:Steffanie Mchugh RN) Pt Understands Pt Rights: Yes (07/18/2016 20:56:Steffanie Mchugh RN) Patient Rights Comments: Given in patient access (07/18/2016 20:56:Emerald Schulz RN) LEARNING ASSESSMENT Knowledge Level: Understands L_D Process; Understands Care Activities; Had Pre-Hospital Education; Understands Diagnosis (07/18/2016 20:56:Steffanie Mchugh RN) Barriers to Learning: None (07/18/2016 20:56:Steffanie Mchugh RN) Learning Readiness: Motivated (07/18/2016 20:56:Steffanie Mchugh RN) Learns Best By: 1 to 1 Instruction (07/18/2016 20:56:Steffanie Mchugh RN) Learning Needs: Labor and Delivery Process; Pain Management; Symptoms to Report; Treatment Plan; Medication; Diagnosis; Nutrition; Equipment; Care; Community Resources (07/18/2016 20:56:Steffanie Mchugh RN) DOMESTIC VIOLANCE SCREENING Dom Viol Threatened/Hurt: No (07/18/2016 20:56:Steffanie Mchugh RN) Hx of Abuse/Neglect past 2yrs: No (07/18/2016 20:56:Steffanie Mchugh RN) Feel Unsafe Going Home: No (07/18/2016 20:56:Steffanie Mchugh RN) Addt'l Observ Indicating Abuse: No (07/18/2016 20:56:Steffanie Mchugh RN) Reason Unable to Complete Screen: N/A, Screen Completed (07/18/2016 20:56:Steffanie Mchugh RN) Considered Personal Harm/Suicide: No (07/18/2016 20:56:Steffanie Mchugh RN) NUTRITIONAL/FUNCTIONAL SCREENING Problem with Appetite >5 Days: No (07/18/2016 20:56:Steffanie Mchugh RN) Chew/Swallow Difficulties: No (07/18/2016 20:56:Steffanie Mchugh RN) Inappropriate Wt Gain/Loss: No (07/18/2016 20:56:Steffanie Mchugh RN) Presence Skin Breakdown/Ulcer: No (07/18/2016 20:56:Steffanie Mchugh RN) Special Diet: No (07/18/2016 20:56:Steffanie Mchugh RN) Pt Requests Glost Kiln Placer Visit: No (07/18/2016 20:56:Steffanie Mchugh RN) Hx of Any of the Following?: N/A (07/18/2016 20:56:Steffanie Mchugh RN) New Diagnosis of: N/A (07/18/2016 20:56:Steffanie Mchugh RN) Requires Assist w/Ambulation: No (07/18/2016 20:56:Steffanie Mchugh RN) Uses Assist Device to Ambulate: No (07/18/2016 20:56:Steffanie Mchugh RN) Pt Requires Help w/ADL's: No (07/18/2016 20:56:Steffanie Mchugh RN)
--- NOTE | 2016-07-19 22:45 | L&D General Admission ---
General Admit Datetime Report Generated by CPN: 07/19/2016 22:45 INFORMATION Patient Age: 31 (07/18/2016 20:22:QS system process) EDC: 07/24/2016 00:00 (07/18/2016 20:26:Janet Baumann RN) EDC per Ultrasound: 07/25/2016 00:00 (07/18/2016 20:26:Janet Baumann RN) LMP: 07/24/2016 00:00 (07/18/2016 20:26:Janet Baumann RN) : 2 (07/18/2016 20:26:Janet Baumann RN) Para: 1 (07/18/2016 20:26:Janet Baumann RN) Term: 1 (07/18/2016 20:26:Janet Baumann RN) : 0 (07/18/2016 20:26:Janet Baumann RN) Spontaneous Abortions: 0 (07/18/2016 20:26:Janet Baumann RN) Induced Abortions: 0 (07/18/2016 20:26:Janet Baumann RN) Livin (07/18/2016 20:26:Janet Ring, RN) Cesareans: 0 (07/18/2016 20:26:Janet Ring, RN) VBACs: 0 (07/18/2016 20:26:Janet Ring, RN) Ectopic: 0 (07/18/2016 20:26:Janet Ring, RN) Multiple Births: 0 (07/18/2016 20:26:Janet Ring, RN) Baby, Number in Womb: 1 (07/18/2016 20:26:Janet Ring, RN) CARE Primary Business Dean: [facility] (07/18/2016 20:26:Janet Ring, RN) Adequate Care: Yes (07/18/2016 20:26:Janet Ring, RN) Height (in): 67 (07/19/2016 06:01:QS system process) Height (in): 67 (07/18/2016 21:38:QS system process) ALLERGIES Medication Allergy: No (07/18/2016 20:26:Janet Ring, RN) Medication Allergies: No Known Allergies (07/18/2016) (07/18/2016 21:37:QS system process) Medication Allergies: No Known Allergies (06/09/2016) (07/18/2016 20:22:QS system process) Latex Allergy: No Latex Allergies (07/18/2016 20:26:Janet Baumann RN) Food Allergies: None (07/18/2016 20:26:Stefani Caballero RN) Environmental Allergies: None (07/18/2016 20:26:Stefani Caballero RN) COMMUNICATION Primary Language: Tunisian (07/18/2016 20:26:Janet Baumann RN) Medical Tx Preferred Language: Tunisian (07/18/2016 20:26:Janet Baumann RN) Tunisian Communication Ability: Speaks Tunisian; Reads Tunisian (07/18/2016 20:26:Emerald Schulz RN) Communication Barrier(s): None (07/18/2016 20:26:Janet Baumann RN) DEMOGRAPHICS Address: [address] [place] [id number] (07/18/2016 20:22:QS system process) Zipcode: [id number] (07/18/2016 20:22:QS system process) Home (07/18/2016 20:22:QS system process) Work (07/18/2016 20:22:QS system process) SSN: [id number] (07/18/2016 20:22:QS system process) Next of Kin Name: ADOLFO MILLS (07/18/2016 20:22:QS system process) Next of Kin (07/18/2016 20:22:QS system process) Next of Kin Relationship: MO (07/18/2016 20:22:QS system process) Date of : 1985 (07/18/2016 20:22:QS system process) Marital Status: (07/18/2016 20:22:QS system process) Sex: Female (07/18/2016 20:22:QS system process) Race: (07/18/2016 20:22:QS system process) Ethnicity: Non- or (07/18/2016 20:22:QS system process) Congregational: Gnosticist (07/18/2016 20:22:QS system process) DRUG AND ALCOHOL USE Alcohol: No (07/18/2016 20:26:Emerald Schulz RN) Cigarettes: Never Smoker. [id number] (07/18/2016 20:26:Emerald Schulz RN) Marijuana: No (07/18/2016 20:26:Emerald Schulz RN) Cocaine: No (07/18/2016 20:26:Emerald Schulz RN) Other Illicit Drugs: No (07/18/2016 20:26:Emerald Schulz RN) VACCINE HISTORY Influenza Vaccine: Yes (07/18/2016 20:26:Emerald Schulz RN) Influenza Date: 2016 (07/18/2016 20:26:Emerald Schulz RN) Pneumococcal Vaccine: No (07/18/2016 20:26:Emerald Schulz RN) Tetanus Vaccine: Uncertain (07/18/2016 20:26:Emerald Schulz RN) Tdap Vaccine: Yes (07/18/2016 20:26:Janet Baumann RN) Tdap Date: 2016 (07/18/2016 20:26:Janet Baumann RN) Hepatitis B Vaccine: Yes (07/18/2016 20:26:Emerald Schulz RN) Street Light Servicer Helper: [facility] (07/18/2016 20:26:Emerald Schulz RN) Feeding Preference: Breast (07/18/2016 20:26:Emerald Schulz RN) Benefit of Breast Feed Discussed: Yes (07/18/2016 20:26:Emerald Schulz RN) Circumcision: Yes (07/18/2016 20:26:Emerald Schulz RN) Classes Attended: No (07/18/2016 20:26:Emerald Schulz RN) Tubal Ligation: No (07/18/2016 20:26:Emerald Schulz RN) Tubal Authorization Signed: N/A (07/18/2016 20:26:Emerald Schulz RN) Consent: N/A (07/18/2016 20:26:Emerald Schulz RN) Consent Signed: N/A (07/18/2016 20:26:Emerald Schulz RN) Pain Management Plans: Natural (07/18/2016 20:26:Emerald Schulz RN) Plans for Labor and Delivery: Plan (07/18/2016 20:26:Emerald Schulz RN) Other Labor and Delivery Plans: skin to skin, no pacifiers, delayed cord clamping (07/18/2016 20:26:Emerald Schulz RN) Support Person: Tye (07/18/2016 20:26:Emerald Schulz RN) Support Person Relationship: (07/18/2016 20:26:Emerald Schulz RN) Cultural/Spritual Practice: No (07/18/2016 20:26:Emerald Schulz RN) Spir/Cult Dietary Needs: No (07/18/2016 20:26:Emerald Schulz RN) LIVING SITUATION/DISCHARGE PLAN Living Arrangements: House (07/18/2016 20:26:Emerald Schulz RN) Adequate Access to:: Electric; Heat; Refrigeration; Plumbing/Running water; Phone; Transportation (07/18/2016 20:26:Emerald Schulz RN) WIC Program: No (07/18/2016 20:26:Emerald Schulz RN) Discharge Senior Internal Auditor Person: Tye (07/18/2016 20:26:Emerald Schulz RN) Person to Help after Discharge: Tye (07/18/2016 20:26:Emerald Schulz RN) Currently Using Commun Resources: No (07/18/2016 20:26:Emerald Schulz RN) Outside Agency/Clerical Investigator: No (07/18/2016 20:26:Emerald Schulz RN) Car Seat for Discharge: Yes (07/18/2016 20:26:Emerald Schulz RN) Adoption Requested: No (07/18/2016 20:26:Emerald Schulz RN) Pt Contact w/infant Post : N/A (07/18/2016 20:26:Emerald Schulz RN) LABS Blood Type: A Positive (07/18/2016 20:26:Janet Baumann RN) Antibody Screen: Negative (07/18/2016 20:26:Janet Baumann RN) Rho(G) this : Not Applicable (07/18/2016 20:26:Janet Baumann RN) Hemoglobin: 12.3 (07/18/2016 22:27:QS system process) Hematocrit: 36.4 (07/18/2016 22:27:QS system process) MCV: 88 (07/18/2016 22:27:QS system process) Group Beta Strep: Negative (07/18/2016 20:26:Janet Baumann RN) Gonorrhea: Negative (07/18/2016 20:26:Janet Baumann RN) Chlamydia: Negative (07/18/2016 20:26:Janet Baumann RN) RPR/VDRL: Nonreactive (07/18/2016 20:26:Janet Baumann RN) HIV Results: Negative (07/18/2016 20:26:Janet Baumann RN) Hepatitis B: Negative (07/18/2016 20:26:Janet Baumann RN) Rubella: Immune (07/18/2016 20:26:Janet Baumann RN) OB/PREVIOUS HISTORY LMP: 07/24/2016 00:00 (07/18/2016 20:26:Janet Baumann RN) Previous Procedures: Ultrasound; NST; Tocolysis (07/18/2016 20:26:Emerald Schulz RN) Current Procedures: Ultrasound; NST (07/18/2016 20:26:Emerald Schulz RN) History of Previous : No (07/18/2016 20:26:Janet Baumann RN) History of Gestational Diabetes: No (07/18/2016 20:26:Emerald Schulz RN) History of PIH: No (07/18/2016 20:26:Emerald Schulz RN) History of Incompetent Cervix: No (07/18/2016 20:26:Emerald Schulz RN) History of Placenta Previa/Abrup: No (07/18/2016 20:26:Emerald Schulz RN) History of Macrosomia: No (07/18/2016 20:26:Emerald Schulz RN) History of IUGR: No (07/18/2016 20:26:Emerald Schulz RN) History of Hemorrhage: No (07/18/2016 20:26:Emerald Schulz RN) History of Loss/Stillborn: No (07/18/2016 20:26:Janet Baumann RN) History of : No (07/18/2016 20:26:Janet Baumann RN) History of D (Rh) Sensitization: No (07/18/2016 20:26:Janet Baumann RN) History Recurrent Loss/Stillborn: No (07/18/2016 20:26:Janet Baumann RN) History Depression/PP Depression: No (07/18/2016 20:26:Emerald Schulz RN) History of Uterine Anomaly/DIVYA: No (07/18/2016 20:26:Janet Baumann RN) History of Infertility: No (07/18/2016 20:26:Emerald Schulz RN) History of ART Treatment: No (07/18/2016 20:26:Emerald Schulz RN) History of DIVYA: No (07/18/2016 20:26:Janet Baumann RN) Comments Obstetrical History: G1: PTL; , delivered at 41.1, girl, delivered naturally G2: current, ptl received steriods only this time (07/18/2016 20:26:Emerald Schulz RN) MEDICAL HISTORY Med Hx Diabetes: No (07/18/2016 20:26:Emerald Schulz RN) Med Hx Hypertension: No (07/18/2016 20:26:Emerald Schulz RN) Med Hx Heart Disease: No (07/18/2016 20:26:Emerald Schulz RN) Med Hx Autoimmune Disorder: No (07/18/2016 20:26:Emerald Schulz RN) Med Hx Kidney Disease/UTI: Yes (07/18/2016 20:26:Janet Baumann RN) Med Hx Neurologic/Epilepsy: No (07/18/2016 20:26:Emerald Schulz RN) Med Hx Psychiatric Disorders: No (07/18/2016 20:26:Emerald Schulz RN) Med Hx Hepatitis/Liver Disease: No (07/18/2016 20:26:Emerald Schulz RN) Med Hx Varicosities/Phlebitis: No (07/18/2016 20:26:Emerald Schulz RN) Med Hx Thyroid Dysfunction: No (07/18/2016 20:26:Emerald Schulz RN) Med Hx Trauma/Violence: No (07/18/2016 20:26:Emerald Schulz RN) Med Hx Blood Transfusion: No (07/18/2016 20:26:Emerald Schulz RN) Med Hx Pulmonary (Asthma,TB): No (07/18/2016 20:26:Emerald Schulz RN) Med Hx Breast: No (07/18/2016 20:26:Emerald Schulz RN) Med Hx SVP CHIEF MARKETING OFFICER Surgery: No (07/18/2016 20:26:Emerald Schulz RN) Med Hx Hospitalization/Surgery: Yes (07/18/2016 20:26:Janet Baumann RN) Med Hx Anesthetic Complications: No (07/18/2016 20:26:Emerald Schulz RN) Med Hx Abnormal Pap Smear: No (07/18/2016 20:26:Emerald Schulz RN) Other Medical Diseases: No (07/18/2016 20:26:Emerald Schulz RN) Med Hx Significant Family Hx: No (07/18/2016 20:26:Emerald Schulz RN) Details of Med/Surg Hx: UTIs prior to , labor and delivery of first child, patient had stress per provider on 07/15/16 and suggested to check re ppdepression (07/18/2016 20:26:Emerald Schulz RN) INFECTIOUS HISTORY Inf Hx Gonorrhea: No (07/18/2016 20:26:Emerald Schulz RN) Inf Hx Chlamydia: No (07/18/2016 20:26:Emerald Schulz RN) Inf Hx Syphilis: No (07/18/2016 20:26:Emerald Schulz RN) Inf Hx HIV/AIDS: No (07/18/2016 20:26:Emerald Schulz RN) Inf Hx Human Papilloma Virus: No (07/18/2016 20:26:Emerald Schulz RN) Inf Hx Pt/Partner Genital Herpes: No (07/18/2016 20:26:Emerald Schulz RN) Inf Hx Tuberculosis/Exposure: No (07/18/2016 20:26:Emerald Schulz RN) Inf Hx Hepatitis B,C: No (07/18/2016 20:26:Emerald Schulz RN) Inf Hx Rash or Viral Illness: No (07/18/2016 20:26:Emerald Schulz RN) GENETIC HISTORY Gen Hx Age >=35 at COLBY: No (07/18/2016 20:26:Emerald Schulz RN) Gen Hx Thalassemia: No (07/18/2016 20:26:Emerald Schulz RN) Gen Hx Congenital Heart Defect: No (07/18/2016 20:26:Emerald Schulz RN) Gen Hx Neural Tube Defect: No (07/18/2016 20:26:Emerald Schulz RN) Gen Hx Down's Syndrome: No (07/18/2016 20:26:Emerald Schulz RN) Gen Hx Virgil-Sachs: No (07/18/2016 20:26:Emerald Schulz RN) Gen Hx Mercy: No (07/18/2016 20:26:Emerald Schulz RN) Gen Hx Familial Dysautonomia: No (07/18/2016 20:26:Emerald Schulz RN) Gen Hx Sickle Cell Disease/Trait: No (07/18/2016 20:26:Emerald Schulz RN) Gen Hx Hemophilia/Blood Disorder: No (07/18/2016 20:26:Emerald Schulz RN) Gen Hx Muscular Dystrophy: No (07/18/2016 20:26:Emerald Schulz RN) Gen Hx Cystic Fibrosis: No (07/18/2016 20:26:Emerald Schulz RN) Gen Hx Huntingtons Chorea: No (07/18/2016 20:26:Emerald Schulz RN) Gen Hx Mental Retardation/Autism: No (07/18/2016 20:26:Emerald Schulz RN) Gen Hx Tested for Fragile X: No (07/18/2016 20:26:Emerald Schulz RN) Gen Hx Other Inher/Chromosomal: No (07/18/2016 20:26:Emerald Schulz RN) Gen Hx Maternal Metabolic DO: No (07/18/2016 20:26:Emerald Schulz RN) Gen Hx Pt Father or FOB Defect: No (07/18/2016 20:26:Emerald Schulz RN) Gen Hx Other Genetic History: No (07/18/2016 20:26:Emerald Schulz RN) Gen Hx Drugs/Meds since LMP: Yes (07/18/2016 20:26:Janet Baumann RN) Gen Hx Medications: PNV, Macrobid, Benadryl (07/18/2016 20:26:Emerald Schulz RN)
--- NOTE | 2016-07-20 04:46 | L&D Discharge Summary ---
OB Discharge Summary Datetime Report Generated by CPN: 07/20/2016 04:45 DISCHARGE DIAGNOSIS Gestation: 39.2 Number of Babies in Womb: 1 Parity: 1
--- NOTE | 2016-07-20 04:46 | L&D General Admission ---
General Admit Datetime Report Generated by CPN: 07/20/2016 04:45 INFORMATION Patient Age: 31 (07/18/2016 20:22:QS system process) EDC: 07/24/2016 00:00 (07/18/2016 20:26:Janet Baumann RN) EDC per Ultrasound: 07/25/2016 00:00 (07/18/2016 20:26:Janet Baumann RN) LMP: 07/24/2016 00:00 (07/18/2016 20:26:Janet Baumann RN) : 2 (07/18/2016 20:26:Janet Baumann RN) Para: 1 (07/18/2016 20:26:Janet Baumann RN) Term: 1 (07/18/2016 20:26:Janet Baumann RN) : 0 (07/18/2016 20:26:Janet Baumann RN) Spontaneous Abortions: 0 (07/18/2016 20:26:Janet Baumann RN) Induced Abortions: 0 (07/18/2016 20:26:Janet Baumann RN) Livin (07/18/2016 20:26:Janet Ring, RN) Cesareans: 0 (07/18/2016 20:26:Janet Ring, RN) VBACs: 0 (07/18/2016 20:26:Janet Ring, RN) Ectopic: 0 (07/18/2016 20:26:Janet Ring, RN) Multiple Births: 0 (07/18/2016 20:26:Janet Ring, RN) Baby, Number in Womb: 1 (07/18/2016 20:26:Janet Ring, RN) CARE Primary Baller Tender: [facility] (07/18/2016 20:26:Janet Ring, RN) Adequate Care: Yes (07/18/2016 20:26:Janet Ring, RN) Height (in): 67 (07/19/2016 06:01:QS system process) Height (in): 67 (07/18/2016 21:38:QS system process) ALLERGIES Medication Allergy: No (07/18/2016 20:26:Janet Ring, RN) Medication Allergies: No Known Allergies (07/18/2016) (07/18/2016 21:37:QS system process) Medication Allergies: No Known Allergies (06/09/2016) (07/18/2016 20:22:QS system process) Latex Allergy: No Latex Allergies (07/18/2016 20:26:Janet Baumann RN) Food Allergies: None (07/18/2016 20:26:Stefani Caballero RN) Environmental Allergies: None (07/18/2016 20:26:Stefani Caballero RN) COMMUNICATION Primary Language: Filipino (07/18/2016 20:26:Janet Baumann RN) Medical Tx Preferred Language: Filipino (07/18/2016 20:26:Janet Baumann RN) Filipino Communication Ability: Speaks Filipino; Reads Filipino (07/18/2016 20:26:Emerald Schulz RN) Communication Barrier(s): None (07/18/2016 20:26:Janet Baumann RN) DEMOGRAPHICS Address: [address] [place] [id number] (07/18/2016 20:22:QS system process) Zipcode: [address] (07/18/2016 20:22:QS system process) Home (07/18/2016 20:22:QS system process) Work (07/18/2016 20:22:QS system process) SSN: [id number] (07/18/2016 20:22:QS system process) Next of Kin Name: ADOLFO MILLS (07/18/2016 20:22:QS system process) Next of Kin (07/18/2016 20:22:QS system process) Next of Kin Relationship: MO (07/18/2016 20:22:QS system process) Date of : 1985 (07/18/2016 20:22:QS system process) Marital Status: (07/18/2016 20:22:QS system process) Sex: Female (07/18/2016 20:22:QS system process) Race: (07/18/2016 20:22:QS system process) Ethnicity: Non- or (07/18/2016 20:22:QS system process) Baptist: Pentecostalism (07/18/2016 20:22:QS system process) DRUG AND ALCOHOL USE Alcohol: No (07/18/2016 20:26:Emerald Schulz RN) Cigarettes: Never Smoker. [id number] (07/18/2016 20:26:Emerald Schulz RN) Marijuana: No (07/18/2016 20:26:Emerald Schulz RN) Cocaine: No (07/18/2016 20:26:Emerald Schulz RN) Other Illicit Drugs: No (07/18/2016 20:26:Emerald Schulz RN) VACCINE HISTORY Influenza Vaccine: Yes (07/18/2016 20:26:Emerald Schulz RN) Influenza Date: 2016 (07/18/2016 20:26:Emerald Schulz RN) Pneumococcal Vaccine: No (07/18/2016 20:26:Emerald Schulz RN) Tetanus Vaccine: Uncertain (07/18/2016 20:26:Emerald Schulz RN) Tdap Vaccine: Yes (07/18/2016 20:26:Janet Baumann RN) Tdap Date: 2016 (07/18/2016 20:26:Janet Baumann RN) Hepatitis B Vaccine: Yes (07/18/2016 20:26:Emerald Schulz RN) Family Medicine Chair: [facility] (07/18/2016 20:26:Emerald Schulz RN) Feeding Preference: Breast (07/18/2016 20:26:Emerald Schulz RN) Benefit of Breast Feed Discussed: Yes (07/18/2016 20:26:Emerald Schulz RN) Circumcision: Yes (07/18/2016 20:26:Emerald Schulz RN) Classes Attended: No (07/18/2016 20:26:Emerald Schulz RN) Tubal Ligation: No (07/18/2016 20:26:Emerald Schulz RN) Tubal Authorization Signed: N/A (07/18/2016 20:26:Emerald Schulz RN) Consent: N/A (07/18/2016 20:26:Emerald Schulz RN) Consent Signed: N/A (07/18/2016 20:26:Emerald Schulz RN) Pain Management Plans: Natural (07/18/2016 20:26:Emerald Schulz RN) Plans for Labor and Delivery: Plan (07/18/2016 20:26:Emerald Schulz RN) Other Labor and Delivery Plans: skin to skin, no pacifiers, delayed cord clamping (07/18/2016 20:26:Emerald Schulz RN) Support Person: Tye (07/18/2016 20:26:Emerald Schulz RN) Support Person Relationship: (07/18/2016 20:26:Emerald Schulz RN) Cultural/Spritual Practice: No (07/18/2016 20:26:Emerald Schulz RN) Spir/Cult Dietary Needs: No (07/18/2016 20:26:Emerald Schulz RN) LIVING SITUATION/DISCHARGE PLAN Living Arrangements: House (07/18/2016 20:26:Emerald Schulz RN) Adequate Access to:: Electric; Heat; Refrigeration; Plumbing/Running water; Phone; Transportation (07/18/2016 20:26:Emerald Schulz RN) WIC Program: No (07/18/2016 20:26:Emerald Schulz RN) Discharge Medical Cash Poster Person: Tye (07/18/2016 20:26:Emerald Schulz RN) Person to Help after Discharge: Tye (07/18/2016 20:26:Emerald Schulz RN) Currently Using Commun Resources: No (07/18/2016 20:26:Emerald Schulz RN) Outside Agency/Band Reamer Machine Operator: No (07/18/2016 20:26:Emerald Schulz RN) Car Seat for Discharge: Yes (07/18/2016 20:26:Emerald Schulz RN) Adoption Requested: No (07/18/2016 20:26:Emerald Schulz RN) Pt Contact w/infant Post : N/A (07/18/2016 20:26:Emerald Schulz RN) LABS Blood Type: A Positive (07/18/2016 20:26:Janet Baumann RN) Antibody Screen: Negative (07/18/2016 20:26:Janet Baumann RN) Rho(G) this : Not Applicable (07/18/2016 20:26:Janet Baumann RN) Hemoglobin: 12.3 (07/18/2016 22:27:QS system process) Hematocrit: 36.4 (07/18/2016 22:27:QS system process) MCV: 88 (07/18/2016 22:27:QS system process) Group Beta Strep: Negative (07/18/2016 20:26:Janet Baumann RN) Gonorrhea: Negative (07/18/2016 20:26:Janet Baumann RN) Chlamydia: Negative (07/18/2016 20:26:Janet Baumann RN) RPR/VDRL: Nonreactive (07/18/2016 20:26:Janet Baumann RN) HIV Results: Negative (07/18/2016 20:26:Janet Baumann RN) Hepatitis B: Negative (07/18/2016 20:26:Janet Baumann RN) Rubella: Immune (07/18/2016 20:26:Janet Baumann RN) OB/PREVIOUS HISTORY LMP: 07/24/2016 00:00 (07/18/2016 20:26:Janet Baumann RN) Previous Procedures: Ultrasound; NST; Tocolysis (07/18/2016 20:26:Emerald Schulz RN) Current Procedures: Ultrasound; NST (07/18/2016 20:26:Emerald Schulz RN) History of Previous : No (07/18/2016 20:26:Janet Baumann RN) History of Gestational Diabetes: No (07/18/2016 20:26:Emerald Schulz RN) History of PIH: No (07/18/2016 20:26:Emerald Schulz RN) History of Incompetent Cervix: No (07/18/2016 20:26:Emerald Schulz RN) History of Placenta Previa/Abrup: No (07/18/2016 20:26:Emerald Schulz RN) History of Macrosomia: No (07/18/2016 20:26:Emerald Schulz RN) History of IUGR: No (07/18/2016 20:26:Emerald Schulz RN) History of Hemorrhage: No (07/18/2016 20:26:Emerald Schulz RN) History of Loss/Stillborn: No (07/18/2016 20:26:Janet Baumann RN) History of : No (07/18/2016 20:26:Janet Baumann RN) History of D (Rh) Sensitization: No (07/18/2016 20:26:Janet Baumann RN) History Recurrent Loss/Stillborn: No (07/18/2016 20:26:Janet Baumann RN) History Depression/PP Depression: No (07/18/2016 20:26:Emerald Schulz RN) History of Uterine Anomaly/DIVYA: No (07/18/2016 20:26:Janet Baumann RN) History of Infertility: No (07/18/2016 20:26:Emerald Schulz RN) History of ART Treatment: No (07/18/2016 20:26:Emerald Schulz RN) History of DIVYA: No (07/18/2016 20:26:Janet Baumann RN) Comments Obstetrical History: G1: PTL; , delivered at 41.1, girl, delivered naturally G2: current, ptl received steriods only this time (07/18/2016 20:26:Emerald Schulz RN) MEDICAL HISTORY Med Hx Diabetes: No (07/18/2016 20:26:Emerald Schulz RN) Med Hx Hypertension: No (07/18/2016 20:26:Emerald Schulz RN) Med Hx Heart Disease: No (07/18/2016 20:26:Emerald Schulz RN) Med Hx Autoimmune Disorder: No (07/18/2016 20:26:Emerald Schulz RN) Med Hx Kidney Disease/UTI: Yes (07/18/2016 20:26:Janet Baumann RN) Med Hx Neurologic/Epilepsy: No (07/18/2016 20:26:Emerald Schulz RN) Med Hx Psychiatric Disorders: No (07/18/2016 20:26:Emerald Schulz RN) Med Hx Hepatitis/Liver Disease: No (07/18/2016 20:26:Emerald Schulz RN) Med Hx Varicosities/Phlebitis: No (07/18/2016 20:26:Emerald Schulz RN) Med Hx Thyroid Dysfunction: No (07/18/2016 20:26:Emerald Schulz RN) Med Hx Trauma/Violence: No (07/18/2016 20:26:Emerald Schulz RN) Med Hx Blood Transfusion: No (07/18/2016 20:26:Emerald Schulz RN) Med Hx Pulmonary (Asthma,TB): No (07/18/2016 20:26:Emerald Schulz RN) Med Hx Breast: No (07/18/2016 20:26:Emerald Schulz RN) Med Hx HOTEL SERVER Surgery: No (07/18/2016 20:26:Emerald Schulz RN) Med Hx Hospitalization/Surgery: Yes (07/18/2016 20:26:Janet Baumann RN) Med Hx Anesthetic Complications: No (07/18/2016 20:26:Emerald Schulz RN) Med Hx Abnormal Pap Smear: No (07/18/2016 20:26:Emerald Schulz RN) Other Medical Diseases: No (07/18/2016 20:26:Emerald Schulz RN) Med Hx Significant Family Hx: No (07/18/2016 20:26:Emerald Schulz RN) Details of Med/Surg Hx: UTIs prior to , labor and delivery of first child, patient had stress per provider on 07/15/16 and suggested to check re ppdepression (07/18/2016 20:26:Emerald Schulz RN) INFECTIOUS HISTORY Inf Hx Gonorrhea: No (07/18/2016 20:26:Emerald Schulz RN) Inf Hx Chlamydia: No (07/18/2016 20:26:Emerald Schulz RN) Inf Hx Syphilis: No (07/18/2016 20:26:Emerald Schulz RN) Inf Hx HIV/AIDS: No (07/18/2016 20:26:Emerald Schulz RN) Inf Hx Human Papilloma Virus: No (07/18/2016 20:26:Emerald Schulz RN) Inf Hx Pt/Partner Genital Herpes: No (07/18/2016 20:26:Emerald Schulz RN) Inf Hx Tuberculosis/Exposure: No (07/18/2016 20:26:Emerald Schulz RN) Inf Hx Hepatitis B,C: No (07/18/2016 20:26:Emerald Schulz RN) Inf Hx Rash or Viral Illness: No (07/18/2016 20:26:Emerald Schulz RN) GENETIC HISTORY Gen Hx Age >=35 at COLBY: No (07/18/2016 20:26:Emerald Schulz RN) Gen Hx Thalassemia: No (07/18/2016 20:26:Emerald Schulz RN) Gen Hx Congenital Heart Defect: No (07/18/2016 20:26:Emerald Schulz RN) Gen Hx Neural Tube Defect: No (07/18/2016 20:26:Emerald Schulz RN) Gen Hx Down's Syndrome: No (07/18/2016 20:26:Emerald Schulz RN) Gen Hx Virgil-Sachs: No (07/18/2016 20:26:Emerald Schulz RN) Gen Hx Mercy: No (07/18/2016 20:26:Emerald Schulz RN) Gen Hx Familial Dysautonomia: No (07/18/2016 20:26:Emerald Schulz RN) Gen Hx Sickle Cell Disease/Trait: No (07/18/2016 20:26:Emerald Schulz RN) Gen Hx Hemophilia/Blood Disorder: No (07/18/2016 20:26:Emerald Schulz RN) Gen Hx Muscular Dystrophy: No (07/18/2016 20:26:Emerald Schulz RN) Gen Hx Cystic Fibrosis: No (07/18/2016 20:26:Emerald Schulz RN) Gen Hx Huntingtons Chorea: No (07/18/2016 20:26:Emerald Schulz RN) Gen Hx Mental Retardation/Autism: No (07/18/2016 20:26:Emerald Schulz RN) Gen Hx Tested for Fragile X: No (07/18/2016 20:26:Emerald Schulz RN) Gen Hx Other Inher/Chromosomal: No (07/18/2016 20:26:Emerald Schulz RN) Gen Hx Maternal Metabolic DO: No (07/18/2016 20:26:Emerald Schulz RN) Gen Hx Pt Father or FOB Defect: No (07/18/2016 20:26:Emerald Schulz RN) Gen Hx Other Genetic History: No (07/18/2016 20:26:Emerald Schulz RN) Gen Hx Drugs/Meds since LMP: Yes (07/18/2016 20:26:Janet Baumann RN) Gen Hx Medications: PNV, Macrobid, Benadryl (07/18/2016 20:26:Emerald Schulz RN)
--- NOTE | 2016-07-20 04:46 | L&D Current Admission ---
Current Admit Datetime Report Generated by CPN: 07/20/2016 04:45 ADMISSION INFORMATION Current Admit Date/Time: 07/18/2016 20:30 (07/18/2016 20:56:Steffanie Mchugh RN) Reason for Admission: Onset of Labor (07/18/2016 20:56:Steffanie Mchugh RN) Chief Complaint: Contractions (07/18/2016 20:56:Emerald Schulz RN) Medications During : Diphenhydramine (Benedryl); Vitamin (07/18/2016 20:56:Steffanie Mchugh RN) Meds During -Oth: macrobid, betamethsone (07/18/2016 20:56:Steffanie Mchugh RN) EGA per Dates: 39.1 (07/18/2016 20:56:QS system process) EGA per US: 39.0 (07/18/2016 20:56:QS system process) Method of Arrival: Wheelchair (07/18/2016 20:56:Steffanie Mchugh RN) Admitted From: Home (07/18/2016 20:56:Steffanie Mchugh RN) Reason for Induction: Not Applicable (07/18/2016 20:56:Steffanie Mchugh RN) Records Available: Yes (07/18/2016 20:56:Steffanie Mchugh RN) General Admission Information: Reviewed; Confirmed (07/18/2016 20:56:Steffanie Mchugh RN) General Admission Reviewed By: Edgardo Schulz RN (07/18/2016 20:56:Steffanie Mchugh RN) BELONGINGS/ADVANCED DIRECTIVES Valuables/Personal Effects: Cell Phone (07/18/2016 20:56:Steffanie Mchugh RN) Other Belongings: see paper belongings form (07/18/2016 20:56:Steffanie Mchugh RN) Disposition of Belongings: Kept with Patient (07/18/2016 20:56:Steffanie Mchugh RN) Advance Direct for Healthcare: No, and Wants No Information (07/18/2016 20:56:Steffanie Mchugh RN) Durable Power of Hatch Supervisor: No (07/18/2016 20:56:Steffanie Mchugh RN) Living Will: No (07/18/2016 20:56:Steffanie Mchugh RN) Organ Donor: Yes (07/18/2016 20:56:Emerald Schulz RN) Pt Rights Information Given: Yes (07/18/2016 20:56:Steffanie Mchugh RN) Pt Understands Pt Rights: Yes (07/18/2016 20:56:Steffanie Mchugh RN) Patient Rights Comments: Given in patient access (07/18/2016 20:56:Emerald Schulz RN) LEARNING ASSESSMENT Knowledge Level: Understands L_D Process; Understands Care Activities; Had Pre-Hospital Education; Understands Diagnosis (07/18/2016 20:56:Steffanie Mchugh RN) Barriers to Learning: None (07/18/2016 20:56:Steffanie Mchugh RN) Learning Readiness: Motivated (07/18/2016 20:56:Steffanie Mchugh RN) Learns Best By: 1 to 1 Instruction (07/18/2016 20:56:Steffanie Mchugh RN) Learning Needs: Labor and Delivery Process; Pain Management; Symptoms to Report; Treatment Plan; Medication; Diagnosis; Nutrition; Equipment; Care; Community Resources (07/18/2016 20:56:Steffanie Mchugh RN) DOMESTIC VIOLANCE SCREENING Dom Viol Threatened/Hurt: No (07/18/2016 20:56:Steffanie cMhugh RN) Hx of Abuse/Neglect past 2yrs: No (07/18/2016 20:56:Steffanie Mchugh RN) Feel Unsafe Going Home: No (07/18/2016 20:56:Steffanie Mchugh RN) Addt'l Observ Indicating Abuse: No (07/18/2016 20:56:Steffanie Mchugh RN) Reason Unable to Complete Screen: N/A, Screen Completed (07/18/2016 20:56:Steffanie Mchugh RN) Considered Personal Harm/Suicide: No (07/18/2016 20:56:Steffanie Mchugh RN) NUTRITIONAL/FUNCTIONAL SCREENING Problem with Appetite >5 Days: No (07/18/2016 20:56:Steffanie Mchugh RN) Chew/Swallow Difficulties: No (07/18/2016 20:56:Steffanie Mchugh RN) Inappropriate Wt Gain/Loss: No (07/18/2016 20:56:Steffanie Mchugh RN) Presence Skin Breakdown/Ulcer: No (07/18/2016 20:56:Steffanie Mchugh RN) Special Diet: No (07/18/2016 20:56:Steffanie Mchugh RN) Pt Requests Manager Urology Visit: No (07/18/2016 20:56:Steffanie Mchugh RN) Hx of Any of the Following?: N/A (07/18/2016 20:56:Steffanie Mchugh RN) New Diagnosis of: N/A (07/18/2016 20:56:Steffanie Mchugh RN) Requires Assist w/Ambulation: No (07/18/2016 20:56:Steffanie Mchugh RN) Uses Assist Device to Ambulate: No (07/18/2016 20:56:Steffanie Mchugh RN) Pt Requires Help w/ADL's: No (07/18/2016 20:56:Steffanie Mchugh RN)
[2016-07-20] MEDS: IBUPROFEN 800 MG TABLET PO SCH (05:56)
[2016-07-20 07:34] LABS: HEMATOCRIT 36.4 % (36.0-47.0); HEMOGLOBIN 12.1 g/dL (12.0-15.5); HGB HCT DIFFERENCE -0.1; MEAN CORPUSCULAR HEMOGLOBIN 29.4 pg (27.0-33.4); MEAN CORPUSCULAR HGB CONC 33.3 g/dL (32.0-36.0); MEAN CORPUSCULAR VOLUME 88 fl (80-97); RED BLOOD COUNT 4.12 10^6/uL (3.72-5.28); RED CELL DISTRIBUTION WIDTH 13.2 % (11.5-14.0)
[2016-07-20 08:51] VITALS: BP 121/71
[2016-07-20] MEDS: FERROUS SULFATE 325 MG TABLET PO SCH (09:14)
[2016-07-20] MEDS: SENNOSIDES/DOCUSATE 8.6-50 MG 1 EACH TABLET PO SCH (09:14)
[2016-07-20] MEDS: PRENATAL VITAMIN W-O CA NO5/FE FUMARATE/FA CAPSULE PO SCH (09:14)
[2016-07-20] MEDS: DOCUSATE SODIUM 100 MG CAPSULE PO SCH (09:14)
[2016-07-20] MEDS: FAMOTIDINE 20 MG TABLET PO SCH (09:14)
--- NOTE | 2016-07-20 10:46 | L&D General Admission ---
General Admit Datetime Report Generated by CPN: 07/20/2016 10:45 Hemoglobin: 12.1 (07/20/2016 07:20:QS system process) Hematocrit: 36.4 (07/20/2016 07:20:QS system process) MCV: 88 (07/20/2016 07:20:QS system process)
--- NOTE | 2016-07-20 10:46 | L&D Discharge Summary ---
OB Discharge Summary Datetime Report Generated by CPN: 07/20/2016 10:45 DISCHARGE DIAGNOSIS Gestation: 39.2 Number of Babies in Womb: 1 Parity: 1
--- NOTE | 2016-07-20 11:05 | PDOC DISCHARGE SUMMARY ---
Final Diagnosis Discharge Date: 07/20/16 - Final Diagnosis (1) Vaginal delivery Is this a current diagnosis for this admission?: Yes Discharge Data - Discharge Medication Home Medications: Vit No.78/Iron/FA [Prenatabs FA Tablet] 1 tab PO DAILY 03/09/13 Ibuprofen [Motrin 800 mg Tablet] 800 mg PO Q8 #60 tablet 07/20/16 Reason(s) for Admission: Onset of Labor Procedures: NST Intrapartum Procedure(s): Spontaneous Vaginal Delivery - Diagnosis Test Laboratory: Temp Pulse Resp BP Pulse Ox 98.0 F 84 16 117/74 95 07/19/16 07:39 07/19/16 07:39 07/19/16 07:39 07/19/16 07:39 07/19/16 07:39 07/18/16 07/18/16 20:36 22:27 RBC 4.15 Hgb 12.3 Hct 36.4 Urine Opiates Screen NEGATIVE - Discharge information/Instructions Discharge Activity: Balance Activity w/Rest, Pelvic Rest Discharge Diet: Regular Disposition: HOME, SELF-CARE Follow up with: [facility] in: 4, Weeks
--- NOTE | 2016-07-20 15:25 | L&D Discharge Summary ---
OB Discharge Summary Datetime Report Generated by CPN: 07/20/2016 15:25 DISCHARGE DIAGNOSIS Gestation: 39.2 Number of Babies in Womb: 1 Parity: 1
--- NOTE | 2016-07-20 16:45 | L&D General Admission ---
General Admit Datetime Report Generated by CPN: 07/20/2016 16:45 Height (in): 67 (07/20/2016 11:04:QS system process) Hemoglobin: 12.1 (07/20/2016 07:20:QS system process) Hematocrit: 36.4 (07/20/2016 07:20:QS system process) MCV: 88 (07/20/2016 07:20:QS system process)
--- NOTE | 2016-07-20 16:45 | L&D Discharge Summary ---
OB Discharge Summary Datetime Report Generated by CPN: 07/20/2016 16:45 DISCHARGE DIAGNOSIS Gestation: 39.2 Number of Babies in Womb: 1 Parity: 1
--- NOTE | 2016-07-20 22:45 | L&D General Admission ---
General Admit Datetime Report Generated by CPN: 07/20/2016 22:45 Height (in): 67 (07/20/2016 11:04:QS system process) Hemoglobin: 12.1 (07/20/2016 07:20:QS system process) Hematocrit: 36.4 (07/20/2016 07:20:QS system process) MCV: 88 (07/20/2016 07:20:QS system process)
--- NOTE | 2016-07-20 22:45 | L&D Discharge Summary ---
OB Discharge Summary Datetime Report Generated by CPN: 07/20/2016 22:45 DISCHARGE DIAGNOSIS Gestation: 39.2 Number of Babies in Womb: 1 Parity: 1
--- NOTE | 2016-07-21 04:46 | L&D General Admission ---
General Admit Datetime Report Generated by N: 07/21/2016 04:45 Height (in): 67 (07/20/2016 11:04:QS system process) Hemoglobin: 12.1 (07/20/2016 07:20:QS system process) Hematocrit: 36.4 (07/20/2016 07:20:QS system process) MCV: 88 (07/20/2016 07:20:QS system process)
--- NOTE | 2016-07-21 04:46 | L&D Admission Assessment ---
LD ADM ASMT Datetime Report Generated by [facility]: 07/21/2016 04:45 Weight (lb): 163 (07/20/2016 11:04:QS system process) Weight (kg): 74.1 (07/20/2016 11:04:QS system process) BMI: 25.5 (07/20/2016 11:04:QS system process)
--- NOTE | 2016-07-21 04:46 | L&D Discharge Summary ---
OB Discharge Summary Datetime Report Generated by CPN: 07/21/2016 04:45 DISCHARGE DIAGNOSIS Gestation: 39.2 Number of Babies in Womb: 1 Parity: 1
--- NOTE | 2016-07-21 10:46 | L&D Admission Assessment ---
LD ADM ASMT Datetime Report Generated by N: 07/21/2016 10:45 Weight (lb): 163 (07/20/2016 11:04:QS system process) Weight (kg): 74.1 (07/20/2016 11:04:QS system process) BMI: 25.5 (07/20/2016 11:04:QS system process)
--- NOTE | 2016-07-21 10:46 | L&D General Admission ---
General Admit Datetime Report Generated by CPN: 07/21/2016 10:45 Height (in): 67 (07/20/2016 11:04:QS system process)
--- NOTE | 2016-07-21 10:46 | L&D Discharge Summary ---
OB Discharge Summary Datetime Report Generated by CPN: 07/21/2016 10:45 DISCHARGE DIAGNOSIS Gestation: 39.2 Number of Babies in Womb: 1 Parity: 1
--- NOTE | 2016-07-21 16:46 | L&D Discharge Summary ---
OB Discharge Summary Datetime Report Generated by CPN: 07/21/2016 16:45 DISCHARGE DIAGNOSIS Gestation: 39.2 Number of Babies in Womb: 1 Parity: 1
--- NOTE | 2016-07-21 22:46 | L&D Discharge Summary ---
OB Discharge Summary Datetime Report Generated by CPN: 07/21/2016 22:45 DISCHARGE DIAGNOSIS Gestation: 39.2 Number of Babies in Womb: 1 Parity: 1
--- NOTE | 2016-07-22 04:46 | L&D Discharge Summary ---
OB Discharge Summary Datetime Report Generated by CPN: 07/22/2016 04:45 DISCHARGE DIAGNOSIS Gestation: 39.2 Number of Babies in Womb: 1 Parity: 1
--- NOTE | 2016-07-22 10:46 | L&D Discharge Summary ---
OB Discharge Summary Datetime Report Generated by CPN: 07/22/2016 10:45 DISCHARGE DIAGNOSIS Gestation: 39.2 Number of Babies in Womb: 1 Parity: 1
--- NOTE | 2016-07-22 16:46 | L&D Discharge Summary ---
OB Discharge Summary Datetime Report Generated by CPN: 07/22/2016 16:45 DISCHARGE DIAGNOSIS Gestation: 39.2 Number of Babies in Womb: 1 Parity: 1
--- NOTE | 2016-07-22 22:46 | L&D Discharge Summary ---
OB Discharge Summary Datetime Report Generated by CPN: 07/22/2016 22:45 DISCHARGE DIAGNOSIS Gestation: 39.2 Number of Babies in Womb: 1 Parity: 1
--- NOTE | 2016-07-23 04:46 | L&D Discharge Summary ---
OB Discharge Summary Datetime Report Generated by CPN: 07/23/2016 04:45 DISCHARGE DIAGNOSIS Gestation: 39.2 Number of Babies in Womb: 1 Parity: 1
--- NOTE | 2016-07-23 10:46 | L&D Discharge Summary ---
OB Discharge Summary Datetime Report Generated by CPN: 07/23/2016 10:45 DISCHARGE DIAGNOSIS Gestation: 39.2 Number of Babies in Womb: 1 Parity: 1
--- NOTE | 2016-07-23 16:46 | L&D Discharge Summary ---
OB Discharge Summary Datetime Report Generated by CPN: 07/23/2016 16:45 DISCHARGE DIAGNOSIS Gestation: 39.2 Number of Babies in Womb: 1 Parity: 1
--- NOTE | 2016-07-23 22:46 | L&D Discharge Summary ---
OB Discharge Summary Datetime Report Generated by CPN: 07/23/2016 22:45 DISCHARGE DIAGNOSIS Gestation: 39.2 Number of Babies in Womb: 1 Parity: 1
--- NOTE | 2016-07-24 04:46 | L&D Discharge Summary ---
OB Discharge Summary Datetime Report Generated by CPN: 07/24/2016 04:45 DISCHARGE DIAGNOSIS Gestation: 39.2 Number of Babies in Womb: 1 Parity: 1
--- NOTE | 2016-07-24 10:46 | L&D Discharge Summary ---
OB Discharge Summary Datetime Report Generated by CPN: 07/24/2016 10:45 DISCHARGE DIAGNOSIS Gestation: 39.2 Number of Babies in Womb: 1 Parity: 1
--- NOTE | 2016-07-24 16:46 | L&D Discharge Summary ---
OB Discharge Summary Datetime Report Generated by CPN: 07/24/2016 16:45 DISCHARGE DIAGNOSIS Gestation: 39.2 Number of Babies in Womb: 1 Parity: 1
--- NOTE | 2016-07-24 22:46 | L&D Discharge Summary ---
OB Discharge Summary Datetime Report Generated by CPN: 07/24/2016 22:45 DISCHARGE DIAGNOSIS Gestation: 39.2 Number of Babies in Womb: 1 Parity: 1
--- NOTE | 2016-07-25 04:46 | L&D Discharge Summary ---
OB Discharge Summary Datetime Report Generated by CPN: 07/25/2016 04:45 DISCHARGE DIAGNOSIS Gestation: 39.2 Number of Babies in Womb: 1 Parity: 1
--- NOTE | 2016-07-25 10:47 | L&D Discharge Summary ---
OB Discharge Summary Datetime Report Generated by CPN: 07/25/2016 10:45 DISCHARGE DIAGNOSIS Gestation: 39.2 Number of Babies in Womb: 1 Parity: 1
--- NOTE | 2016-07-25 11:12 | Admission Physical ---
Datetime Report Generated by CPN: 07/25/2016 11:11 CURRENT ADMISSION Chief Complaint: Uterine Contractions Admit Plan: Admit to Unit; Initiate Labor Protocol ALLERGIES Medication Allergies: No Medication Allergies: No Known Allergies (07/18/2016) Medication Allergies: No Known Allergies (06/09/2016) Latex: No Latex Allergies Food Allergies: None Environmental Allergies: None OBSTETRICAL HISTORY EDC: 07/24/2016 00:00 : 2 Para: 1 Term: 1 : 0 SAB: 0 IAB: 0 Ectopic: 0 Livin Cesareans: 0 VBACs: 0 Multiple Births: 0 Gestational Diabetes: No Rh Sensitization: No Incompetent Cervix: No DIVYA: No Infertility: No ART Treatment: No Uterine Anomaly: No IUGR: No Hx Previous C/S: No Macrosomia: No Hx Loss/Stillborn: No PIH: No Hx : No Placenta Previa/Abruption: No Depression/PP Depression: No PTL/PROM: Yes Post Hemorrhage: No Current Procedures: Ultrasound; NST Obstetrical History Comments: G1: PTL; , delivered at 41.1, girl, delivered naturally G2: current, ptl received steriods only this time SEE RECORDS Alcohol: No Marijuana : No Cocaine: No Other Illicit Drugs: No Cigarettes: Never Smoker. 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 Surgery: No Heart Disease: No Hosp/Surgery: Yes Autoimmune Disorder: No Anesthetic Complications: No Kidney Disease: Yes Abnormal Pap Smear: No Neuro/Epilepsy: No Psychiatric Disorders: No Other Medical Diseases: No Hepatitis/Liver Disease: No Significant Family History: No Varicosities/Phlebitis: No Trauma/Violence : No Thyroid Dysfunction: No Medical History Comments: UTIs prior to , labor and delivery of first child, patient had stress per provider on 07/15/16 and suggested to check re ppdepression INFECTIOUS HISTORY Gonorrhea: No Genital Herpes: No Chlamydia: No Tuberculosis: No Syphilis: No Hepatitis: No HIV/AIDS Exposure: No Rash or Viral Illness: No HPV: No PHYSICAL EXAM General: Normal HEENT: Normal Neurologic: Normal Thyroid: Normal Heart: Normal Lungs: Normal Breast: Deferred Back: Normal Abdomen: Normal Genitourinary Exam: Normal Extremities: Normal DTRs: Normal Pelvic Type: Adequate Vital Signs: Reviewed VAGINAL EXAM Dilatation: 6 Effacement: 80 Station: -2 MEMBRANES Pooling: Negative Membranes: Intact Amniotic Fluid Color: Clear FETUS A EGA: 39.2 Monitoring: External US FHR- Baseline: 120 Variability: Moderate 6-25bpm Accelerations: 15X15 Decelerations: None FHR Category: Category I Presentation: Vertex Admit Comment: 31yo at 39+2ega presents for uterine ctx. Active labor. GBS negative. Abnl 1 hr GTT but normal 3 hr GTT. Prior at term 7#. Pt declines meds for pain. Epidural upon pt request. Anticipate . EFW 7#-8#, vertex. CAT I FHR tracing. PLANS FOR LABOR AND DELIVERY Labor and Delivery: Plan Pain Management: Natural Feeding Preference: Breast Benefit of Breast Feed Discussed: Yes Circumcision: Yes INFORMED CONSENT Informed Consent Obtained: Vaginal Delivery; Risks, Benefits and Alternatives Discussed Signature: with User ID: [email or web address]
--- NOTE | 2016-07-25 16:46 | L&D Discharge Summary ---
OB Discharge Summary Datetime Report Generated by CPN: 07/25/2016 16:45 DISCHARGE DIAGNOSIS Gestation: 39.2 Number of Babies in Womb: 1 Parity: 1
--- NOTE | 2016-07-25 22:46 | L&D Discharge Summary ---
OB Discharge Summary Datetime Report Generated by CPN: 07/25/2016 22:45 DISCHARGE DIAGNOSIS Gestation: 39.2 Number of Babies in Womb: 1 Parity: 1
== END 2016-07-20 13:04 | disposition home or self-care (01) | DRG 775 ==
LOC: LC 20:21 → LR 22:17 → 2N 07-19 06:01
PROVIDERS: ADMIT Student in an Organized Health Care Education/Training Program; ATTEND Student in an Organized Health Care Education/Training Program
PROC: 10E0XZZ Delivery of Products of Conception, External Approach (ICD-10-PCS; principal; 2016-07-19)
PROC: 4A1HXCZ Monitoring of Products of Conception, Cardiac Rate, External Approach (ICD-10-PCS; 2016-07-19)
DX: O69.1XX0 Labor and delivery complicated by cord around neck, with compression, not applicable or unspecified (principal); Z37.0 Single live birth; Z3A.39 39 weeks gestation of pregnancy
CPT/HCPCS: 36415; 59025; 80307; 81005; 85025; 85027; 86592; 86850; 86900; 86901; 94760; J2590; J3490